=== PATIENT | female | born 1970 | race African-American/Black ===

== ENCOUNTER 2016-08-05 11:47 | Observation (INO) | payer OTHER ==
[2016-08-05] MEDS ORDERED: NITROGLYCERIN SL TABS 0.4 MG TAB SUBLINGUAL STA ×3 (12:14)
[2016-08-05] MEDS ORDERED: ASPIRIN 81 MG CHEW PO STA (12:14)
[2016-08-05] MEDS ORDERED: SODIUM CHLORIDE 0.9% 1,000 ML IV STA (12:14)
--- NOTE | 2016-08-05 12:25 | ED ---
General Adult HPI - General Chief complaint: Chest Pain Stated complaint: Chest pain Time Seen by Provider: 08/05/16 12:10 Source: patient, RN notes reviewed Mode of arrival: wheelchair Limitations: no limitations - History of Present Illness Initial comments: Patient is a pleasant 45-year-old female presenting to the emergency Department with chest discomfort. Patient states this somewhat chronic however worse the past few days. Patient does have a history of alcohol use and has been sober for a while however did drink some today. Patient also has some discomfort in her abdomen. Patient denies history of pancreatitis. Patient does feel somewhat short of breath. Patient has been vomiting. No diaphoresis. - Related Data Home Medications Medication Instructions Recorded Confirmed Divalproex ER [Depakote ER] 1,000 mg PO HS 08/05/16 08/05/16 Escitalopram [Lexapro] 20 mg PO DAILY 08/05/16 08/05/16 Gabapentin [Neurontin] 300 mg PO TID 08/05/16 08/05/16 QUEtiapine FUMARATE [SEROquel] 300 mg PO HS 08/05/16 08/05/16 cloNIDine HCL [Catapres] 0.1 mg PO TID 08/05/16 08/05/16 hydrOXYzine PAMOATE 50 mg PO TID 08/05/16 08/05/16 traZODone HCL [Desyrel] 100 mg PO HS 08/05/16 08/05/16 Allergies Allergy/AdvReac Type Severity Reaction Status Date / Time codeine Allergy Unknown Verified 08/06/15 07:15 Penicillins Allergy Unknown Verified 08/06/15 07:15 Review of Systems ROS Statement: Those systems with pertinent positive or pertinent negative responses have been documented in the HPI. ROS Other: All systems not noted in ROS Statement are negative. Constitutional: Denies: fever Eyes: Denies: eye pain ENT: Denies: ear pain Respiratory: Reports: dyspnea. Denies: cough Cardiovascular: Reports: chest pain Endocrine: Denies: fatigue Gastrointestinal: Reports: abdominal pain, nausea, vomiting Genitourinary: Denies: urgency Musculoskeletal: Denies: back pain Skin: Denies: rash Neurological: Denies: weakness Past Medical History Past Medical History: Asthma, Cancer, Hypertension, Seizure Disorder Additional Past Medical History / Comment(s): depression, anxiety; irregular heartbeat; hx. UTERINE cancer STATED" STILL HAS OVARIES",BRONCHITIS, ANEMIA-HAD BLOOD TRANSFUSION. PT STATED HAS'NT BEEN ON ANY OF HER MEDICATIONS FOR A YEAR. STATED LAST SEIZURE A YEAR AGO. 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 pt admits to drinking pint or less of vodka per day now.denies any drug use. started smoking 2 years ago,smokes 1/2 ppd. Past Drug Use History: None Reported - Past Family History Father Family Medical History: Cancer, Myocardial Infarction ([place]) Mother Family Medical History: Diabetes Mellitus, Hypertension General Exam Limitations: no limitations General appearance: alert, in no apparent distress Head exam: Present: atraumatic Eye exam: Present: normal appearance, PERRL ENT exam: Present: normal oropharynx Neck exam: Present: normal inspection Respiratory exam: Present: normal lung sounds bilaterally, chest wall tenderness (Mild tenderness to the sternal region) Cardiovascular Exam: Present: regular rate, normal rhythm Expanded Peripheral pulses: 2+: Radial (R), Radial (L), Posterior Tibialis (R), Posterior Tibialis (L) GI/Abdominal exam: Present: soft, tenderness (Mild to moderate epigastric tenderness to palpation). Absent: distended Extremities exam: Present: normal inspection. Absent: pedal edema, calf tenderness Back exam: Present: normal inspection Neurological exam: Present: alert Psychiatric exam: Present: normal affect, normal mood Skin exam: Present: normal color Course Vital Signs 08/05/16 08/05/16 08/05/16 11:53 13:05 13:37 Temperature 97.6 F Pulse Rate 138 H 110 H Respiratory 20 18 16 Rate Blood Pressure 126/74 132/84 O2 Sat by Pulse 97 96 Oximetry 08/05/16 15:30 Temperature 98.7 F Pulse Rate 106 H Respiratory 16 Rate Blood Pressure 131/87 O2 Sat by Pulse 99 Oximetry EKG Findings - EKG Comments: EKG Findings:: Sinus tachycardia 107. MA 154. QRS 88. QT 394. QTC 525. Normal axis. Normal QRS. Nonspecific T waves. Medical Decision Making - Medical Decision Making Patient reexamined and resting comfortably at bedside. Patient still complains of discomfort. Patient updated on results and plan. Case was discussed in detail with Dr. Woody, who will admit for hospital call. VQ scan will be ordered. - Lab Data Result diagrams: 08/05/16 12:50 08/05/16 12:50 Lab Results 08/05/16 08/05/16 08/05/16 Range/Units 12:50 12:50 12:50 WBC 3.3 L (3.8-10.6) k/uL RBC 4.04 (3.80-5.40) m/uL Hgb 10.6 L (11.4-16.0) gm/dL Hct 33.3 L (34.0-46.0) % MCV 82.4 (80.0-100.0) fL MCH 26.3 (25.0-35.0) pg MCHC 31.9 (31.0-37.0) g/dL RDW 18.3 H (11.5-15.5) % Plt Count 214 (150-450) k/uL Neutrophils % (Manual) 55.5 % Lymphocytes % (Manual) 40.5 % Monocytes % (Manual) 4.0 % Neutrophils # (Manual) 1.8 (1.3-7.7) k/uL Lymphocytes # (Manual) 1.3 (1.0-4.8) k/uL Monocytes # (Manual) 0.1 (0-1.0) k/uL Nucleated RBCs 0 (0-0) /100 WBC Manual Slide Review Performed Hypochromasia Slight Anisocytosis Slight PT (9.0-12.0) sec INR (<1.1) APTT (22.0-30.0) sec D-Dimer (<0.60) mg/L FEU Sodium 141 (137-145) mmol/L Potassium 3.3 L (3.5-5.1) mmol/L Chloride 104 (98-107) mmol/L Carbon Dioxide 24 (22-30) mmol/L Anion Gap 13 mmol/L BUN 11 (7-17) mg/dL Creatinine 0.70 (0.52-1.04) mg/dL Est GFR (MDRD) Af Amer >60 (>60 ml/min/1.73 sqM) Est GFR (MDRD) Non-Af >60 (>60 ml/min/1.73 sqM) Glucose 88 (74-99) mg/dL Calcium 8.2 L (8.4-10.2) mg/dL Magnesium 1.8 (1.6-2.3) mg/dL Total Bilirubin 0.5 (0.2-1.3) mg/dL AST 41 H (14-36) U/L ALT 25 (9-52) U/L Alkaline Phosphatase 82 (38-126) U/L Total Creatine Kinase 546 H (30-135) U/L CK-MB (CK-2) 2.1 (0.0-2.4) ng/mL CK-MB (CK-2) Rel Index 0.4 Troponin I <0.012 (0.000-0.034) ng/mL Total Protein 7.6 (6.3-8.2) g/dL Albumin 4.2 (3.5-5.0) g/dL Amylase 53 (30-110) U/L Lipase 48 (23-300) U/L Serum Alcohol 140 mg/dL 08/05/16 Range/Units 12:50 WBC (3.8-10.6) k/uL RBC (3.80-5.40) m/uL Hgb (11.4-16.0) gm/dL Hct (34.0-46.0) % MCV (80.0-100.0) fL MCH (25.0-35.0) pg MCHC (31.0-37.0) g/dL RDW (11.5-15.5) % Plt Count (150-450) k/uL Neutrophils % (Manual) % Lymphocytes % (Manual) % Monocytes % (Manual) % Neutrophils # (Manual) (1.3-7.7) k/uL Lymphocytes # (Manual) (1.0-4.8) k/uL Monocytes # (Manual) (0-1.0) k/uL Nucleated RBCs (0-0) /100 WBC Manual Slide Review Hypochromasia Anisocytosis PT 11.3 (9.0-12.0) sec INR 1.1 (<1.1) APTT 26.5 (22.0-30.0) sec D-Dimer 0.76 H (<0.60) mg/L FEU Sodium (137-145) mmol/L Potassium (3.5-5.1) mmol/L Chloride (98-107) mmol/L Carbon Dioxide (22-30) mmol/L Anion Gap mmol/L BUN (7-17) mg/dL Creatinine (0.52-1.04) mg/dL Est GFR (MDRD) Af Amer (>60 ml/min/1.73 sqM) Est GFR (MDRD) Non-Af (>60 ml/min/1.73 sqM) Glucose (74-99) mg/dL Calcium (8.4-10.2) mg/dL Magnesium (1.6-2.3) mg/dL Total Bilirubin (0.2-1.3) mg/dL AST (14-36) U/L ALT (9-52) U/L Alkaline Phosphatase (38-126) U/L Total Creatine Kinase (30-135) U/L CK-MB (CK-2) (0.0-2.4) ng/mL CK-MB (CK-2) Rel Index Troponin I (0.000-0.034) ng/mL Total Protein (6.3-8.2) g/dL Albumin (3.5-5.0) g/dL Amylase (30-110) U/L Lipase (23-300) U/L Serum Alcohol mg/dL - Radiology Data Radiology results: report reviewed (Computed tomography scan is a nondiagnostic study of the chest is confirmed with discussion with Dr. Brush. Aorta unremarkable. Correlate for pulmonary artery her potential.), image reviewed ( Abdominal x-ray shows no acute abnormality. Two-view chest x-ray shows no acute abnormality.) Critical Care Time Critical Care Time: Yes Total Critical Care Time: 32 Disposition Clinical Impression: Unstable angina pectoris Disposition: ADMITTED IP TO THIS HOSP Referrals: None,Stated [Primary Care Provider] - 1-2 days Time of Disposition: 16:10
[2016-08-05 13:15] LABS: Anisocytosis Slight; CH 26.4; CHCM 32.1; HCT 33.3 % (34.0-46.0); HDW 3.02; HGB 10.6 gm/dL (11.4-16.0); Hypochromasia Slight; MCH 26.3 pg (25.0-35.0); MCHC 31.9 g/dL (31.0-37.0); MCV 82.4 fL (80.0-100.0); Mean Platelet Volume 7.7; RBC 4.04 m/uL (3.80-5.40); RDW 18.3 % (11.5-15.5); WBC 3.3 k/uL (3.8-10.6); WBC (Perox) 3.37
[2016-08-05 13:19] LABS: Add Differential Manual Differential
--- NOTE | 2016-08-05 13:22 | XR ---
EXAMINATION TYPE: XR abdomen 1V DATE OF EXAM ORDERED: 08/05/2016 HISTORY: Pain. COMPARISON: None. FINDINGS: There has been a midline incision. Metallic sutures are present. There is been previous ch olecystectomy. The abdominal gas pattern is normal. There is no evidence of obstruction or free air. No unusual calc ifications are seen. IMPRESSION: 1. NO ACUTE INTRACEREBRAL ABDOMINAL ABNORMALITY. 2. POSTSURGICAL CHANGE.
--- NOTE | 2016-08-05 13:24 | XR ---
EXAMINATION TYPE: XR chest 2V DATE OF EXAM: 08/05/2016 HISTORY: Chest Pain. REFERENCE: Previous study dated 08/06/2015. FINDINGS: The lungs are clear. Pleural spaces are clear. Heart size is normal. IMPRESSION: NO ACUTE INTRATHORACIC ABNORMALITY.
[2016-08-05 13:25] LABS: INR 1.1 (<1.1); Partial Thromboplastin Time 26.5 sec (22.0-30.0); Prothrombin Time 11.3 sec (9.0-12.0)
[2016-08-05 13:27] LABS: ALT 25 U/L (9-52); AST 41 U/L (14-36); Alkaline Phosphatase 82 U/L (38-126); Amylase 53 U/L (30-110); Anion Gap 13 mmol/L; Blood Urea Nitrogen 11 mg/dL (7-17); Calcium 8.2 mg/dL (8.4-10.2); Carbon Dioxide 24 mmol/L (22-30); Chloride 104 mmol/L (98-107); Glucose 88 mg/dL (74-99); Magnesium 1.8 mg/dL (1.6-2.3); Non-African American GFR(MDRD) >60 (>60 ml/min/1.73 sqM); Potassium 3.3 mmol/L (3.5-5.1); Sodium 141 mmol/L (137-145); Total Bilirubin 0.5 mg/dL (0.2-1.3); Total Protein 7.6 g/dL (6.3-8.2)
[2016-08-05 13:28] LABS: Manual Review Performed; Nucleated Red Blood Cells 0 /100 WBC (0-0); Total Cells Counted 200
[2016-08-05 13:33] LABS: Creatine Kinase 546 U/L (30-135)
[2016-08-05 13:41] LABS: Alcohol 140 mg/dL
[2016-08-05 13:45] LABS: Creatine Kinase MB 2.1 ng/mL (0.0-2.4); Troponin I <0.012 ng/mL (0.000-0.034)
[2016-08-05] MEDS ORDERED: RX INFO: IV CONTRAST WAS GIVEN 1 EACH MISC MISCELLANE PRN (14:40)
--- NOTE | 2016-08-05 15:59 | CT ---
EXAMINATION TYPE: CT angio chest DATE OF EXAM: 08/05/2016 COMPARISON: Chest x-ray same date, chest CTA 08/06/2015 HISTORY: chest pain CT DLP: 298.6 mGycm Automated exposure control for dose reduction was used. CONTRAST: CTA scan of the thorax is performed with IV Contrast, patient injected with 80 mL of Omnipaque 350, p ulmonary embolism protocol. MIP images are created and reviewed. 3D reconstructed images are create d on an independent workstation and reviewed. FINDINGS: LUNGS: The lungs are grossly clear, there is no concerning parenchymal mass or nodule identified. T here is no pleural effusion or pneumothorax seen. The tracheobronchial tree is patent. AORTA: No additional significant abnormality is seen. Pulmonary artery is prominent measuring approximately 3.1 cm, correlate for possible underlying pulmo nary artery hypertension MEDIASTINUM: There is satisfactory enhancement of the pulmonary arteries due to technique. Calcified left hilar nodes are present. OTHER: Patient is post cholecystectomy, gastric sleeve. Liver shows low attenuation likely due to fa tty infiltration. There is no evident ascites. IMPRESSION: CYSTS NONDIAGNOSTIC STUDY TO EXCLUDE PULMONARY EMBOLISM. CORRELATE FOR PULMONARY ARTERY HYPERTENSION.
[2016-08-05] MEDS ORDERED: MORPHINE SULFATE 4 MG/ML SYRINGE IV STA (16:07)
[2016-08-05] MEDS ORDERED: HEPARIN SODIUM,PORCINE 5,000 UNIT/ML 1 ML VIAL IV ONE (16:10)
[2016-08-05] MEDS ORDERED: HEPARIN SODIUM,PORCINE 5,000 UNIT/ML 1 ML VIAL IV PRN (16:10)
[2016-08-05] MEDS ORDERED: NITROGLYCERIN SL TABS 0.4 MG TAB SUBLINGUAL PRN (16:10)
[2016-08-05] MEDS ORDERED: HEPARIN SODIUM,PORCINE/D5W PMX 25,000 UNIT in DEXTROSE/WATER 1 500ML.BAG IV SCH (16:15)
[2016-08-05] MEDS ORDERED: ONDANSETRON 4 MG/2 ML VIAL IVP STA (16:47)
--- NOTE | 2016-08-05 18:09 | NM ---
EXAMINATION TYPE: NM pul vent and perfuse DATE OF EXAM: 08/05/2016 COMPARISON: NONE HISTORY: TECHNIQUE: Utilizing inhalation of 71.2 mCi Tc 99m DTPA aerosol and intravenous injection of 5.3 mCi of Tc 99m MAA, ventilation and perfusion images are acquired post injection in multiple projections. FINDINGS: There are small peripheral subsegmental defects in the lungs which are matching. This is consistent w ith some degree of airway disease. There is no mismatch. There is no segmental type defect. IMPRESSION: There is evidence for mild airway disease. Low probability of pulmonary embolism.
[2016-08-05] MEDS ORDERED: Potassium Replacement Protocol 1 EACH MISC MISCELLANE PRN (19:04)
[2016-08-05 19:32] LABS: Creatine Kinase 555 U/L (30-135)
[2016-08-05 19:45] LABS: Troponin I <0.012 ng/mL (0.000-0.034)
[2016-08-05] MEDS: hydrOXYzine PAMOATE 25 MG CAP PO SCH (20:24)
[2016-08-05] MEDS: NITROGLYCERIN OINT 1 INCH/GM PACKET TOPICAL SCH ×2 (20:24→21:53)
[2016-08-05] MEDS: GABAPENTIN 300 MG CAP PO SCH (20:24)
[2016-08-05] MEDS: DIVALPROEX ER 500 MG TAB.ER.24H PO SCH (20:24)
[2016-08-05] MEDS: traZODone HCL 100 MG TAB PO SCH (20:24)
[2016-08-05] MEDS: POTASSIUM CHLORIDE ER 20 MEQ TAB.ER PO SCH ×2 (20:24→21:19)
[2016-08-05] MEDS: QUEtiapine 100 MG TAB PO SCH (20:25)
[2016-08-05] MEDS: cloNIDine HCL 0.1 MG TAB PO SCH (20:25)
[2016-08-05] MEDS: MORPHINE SULFATE 2 MG/ML SYRINGE IVP PRN (20:25)
[2016-08-05] MEDS ORDERED: ONDANSETRON 4 MG/2 ML VIAL IVP PRN (20:46)
[2016-08-06] MEDS ORDERED: METOCLOPRAMIDE 5 MG/ML 2 ML VIAL IVP SCH
[2016-08-06] MEDS ORDERED: TEMAZEPAM 15 MG CAP PO PRN (00:12)
[2016-08-06 00:37] LABS: Creatine Kinase 426 U/L (30-135)
[2016-08-06 00:50] LABS: Creatine Kinase MB 1.4 ng/mL (0.0-2.4); Troponin I <0.012 ng/mL (0.000-0.034)
[2016-08-06] MEDS ORDERED: METOCLOPRAMIDE 5 MG/ML 2 ML VIAL IVP PRN (04:13)
[2016-08-06] MEDS: MORPHINE SULFATE 2 MG/ML SYRINGE IVP PRN (05:25)
[2016-08-06] MEDS: NITROGLYCERIN OINT 1 INCH/GM PACKET TOPICAL SCH ×4 (05:25→21:50)
[2016-08-06] MEDS: PANTOPRAZOLE 40 MG/10 ML VIAL IVP SCH ×3 (05:25→20:41)
[2016-08-06] MEDS: SODIUM CHLORIDE 0.9% 1,000 ML IV SCH ×2 (05:28→17:52)
[2016-08-06 08:28] LABS: Anisocytosis Slight; Basophils % (A) 0 %; CH 26.3; CHCM 31.2; Eosinophils # (A) 0.1 k/uL (0-0.7); Eosinophils % (A) 2 %; HCT 29.1 % (34.0-46.0); HDW 2.99; HGB 9.5 gm/dL (11.4-16.0); Hypochromasia Moderate; Luc # (Auto) 0.07; Luc % (Auto) 3; Lymphocytes # (A) 1.2 k/uL (1.0-4.8); Lymphocytes % (A) 41 %; MCH 27.3 pg (25.0-35.0); MCHC 32.5 g/dL (31.0-37.0); MCV 84.1 fL (80.0-100.0); Mean Platelet Volume 7.3; Monocytes # (A) 0.1 k/uL (0-1.0); Monocytes % (A) 5 %; Neutrophils # (A) 1.5 k/uL (1.3-7.7); Neutrophils % (A) 50 %; RBC 3.46 m/uL (3.80-5.40); RDW 17.9 % (11.5-15.5); WBC 2.9 k/uL (3.8-10.6); WBC (Perox) 3.02
[2016-08-06 09:10] LABS: Anion Gap 8 mmol/L; Carbon Dioxide 26 mmol/L (22-30); Chloride 106 mmol/L (98-107); Cholesterol 146 mg/dL (<200); Glucose 96 mg/dL (74-99); Potassium 3.4 mmol/L (3.5-5.1); Sodium 140 mmol/L (137-145); Triglycerides 54 mg/dL (<150)
[2016-08-06 09:11] LABS: Blood Urea Nitrogen 10 mg/dL (7-17); Calcium 8.2 mg/dL (8.4-10.2); Creatine Kinase 380 U/L (30-135); HDL Cholesterol 69 mg/dL (40-60); Non-African American GFR(MDRD) >60 (>60 ml/min/1.73 sqM)
[2016-08-06] MEDS: METOPROLOL TARTRATE 25 MG TAB PO SCH ×2 (09:20→20:41)
[2016-08-06] MEDS: hydrOXYzine PAMOATE 25 MG CAP PO SCH ×3 (09:21→20:41)
[2016-08-06] MEDS: GABAPENTIN 300 MG CAP PO SCH ×3 (09:22→20:41)
[2016-08-06] MEDS: cloNIDine HCL 0.1 MG TAB PO SCH ×3 (09:22→20:41)
[2016-08-06] MEDS: ASPIRIN 325 MG TAB PO SCH (09:22)
[2016-08-06] MEDS: ESCITALOPRAM 20 MG TAB PO SCH (10:35)
[2016-08-06] MEDS ORDERED: Potassium Replacement Protocol 1 EACH MISC MISCELLANE PRN (10:40)
--- NOTE | 2016-08-06 10:41 | HP ---
DATE OF ADMISSION: 08/05/2016 DATE OF SERVICE: 08/05/2016 CHIEF COMPLAINT: Chest pain and abdominal pain, vomiting. HISTORY OF PRESENT ILLNESS: This 45-year-old woman with a past medical history of multiple medical problems, including significant alcohol use, asthma, cancer, hypertension, seizure disorder, history of irregular heartbeat, history of depression, bariatric surgery, anxiety, not being followed by any primary physician in the outpatient setting, has a significant hospital alcohol intake. The patient apparently also had vomiting and upper abdominal discomfort for the last 2 days. The patient came to [facility] and was admitted for further evaluation and treatment. The patient has had a previous admission with alcohol intoxication and toxic encephalopathy. There is no history of any fever, rigor, or chills. No history of any headache, loss of consciousness, seizures. PAST MEDICAL HISTORY: 1. History of asthma. 2. History of hypertension. 3. History of seizure disorder. 4. Depression. 5. Anxiety. HOME MEDICATIONS: 1. Seroquel 300 mg at bedtime. 2. Neurontin 300 mg p.o. t.i.d. 3. Lexapro 20 mg p.o. daily. 4. Desyrel 100 mg at bedtime. 5. Hydroxyzine 50 mg p.o. t.i.d. 6. Catapres 0.1 t.i.d. 7. Depakote ER 1000 mg at bedtime. ALLERGIES: CODEINE AND PENICILLIN. Family history, social history, review of systems could not be taken at length because of the change in mental status. Patient is mildly confused. PHYSICAL EXAMINATION: Patient is alert, oriented x2. Pulse 103, blood pressure 160/83, respiration 16, temperature 98.2, pulse ox 94% on room air. HEENT: Conjunctivae normal. NECK: No jugular venous distention. CARDIOVASCULAR SYSTEM: S1, S2 muffled. RESPIRATORY SYSTEM: Breath sounds diminished at the bases. A few scattered rhonchi and crackles. ABDOMEN: Soft. Minimal diffuse discomfort on palpation. No guarding. No rigidity. No mass palpable. LEGS: No edema. No swelling. NERVOUS SYSTEM: Higher functions as mentioned earlier. Moves all 4 limbs. No focal motor or sensory deficit. LYMPHATICS: No lymph node palpable in neck, axillae or groin. SKIN: No ulcer, rash, bleeding. LABS: WBC 3.3, hemoglobin 10.6. D-dimer is 0.76. Potassium is 3.3. Calcium 8.2. Creatine kinase 546. ASSESSMENT: 1. Acute chest pain for evaluation. Rule out coronary artery disease. Possibly gastroesophageal reflux disease. 2. Rule out peptic ulcer disease. 3. Acute alcohol intoxication. 4. Change in mental status, metabolic encephalopathy secondary to alcohol intoxication. 5. Increased creatine kinase with acute rhabdomyolysis. 6. Hypokalemia. 7. Increased D-dimer without any evidence of pulmonary embolus. 8. Anemia, normocytic; anemia of chronic disease. 9. Leukopenia, possibly secondary to alcohol. 10. History of asthma. 11. History of hypertension. 12. History of seizure disorder. 13. History of anxiety, depression not otherwise specified. 14. History of bariatric surgery. 15. History of cholecystectomy. 16. History of nicotine dependence. 17. History of ethanol. 18. FULL CODE. RECOMMENDATIONS AND DISCUSSION: In this 45-year-old woman who presented with multiple complex medical issues, we will monitor the patient closely, continue the current medications, continue symptomatic treatment. Continue with IV fluids. Rule out myocardial infarction. Cardiology consultation. Otherwise, [facility] protocol for alcohol withdrawal. Repeat labs. Guarded prognosis because of multiple complex medical issues. Further recommendations to follow. I also recommend that the patient follow up closely with a primary physician.
--- NOTE | 2016-08-06 12:37 | CONS ---
DATE OF CONSULTATION: This is a 45-year-old -[place] lady admitted to the hospital with what she describes as epigastric discomfort and also mild burning in the retrosternal area. She is known to have history of alcoholism; has been sober for a while, but she did have 4 to 5 mixed drinks and came into the hospital with abdominal pain. She has no documented history of pancreatitis. Her pain in the abdomen seems to persist. However, she feels better today compared to last night. She does not have any chest pain to suggest angina. Her last echocardiogram from about a year ago suggested an ejection fraction of 45% or so with moderate MR suggestive of alcoholic cardiomyopathy type picture. This lady at the time of my evaluation does not seem to have any major issues other than epigastric discomfort. Her nausea also seems to be better. She seems slightly tachycardic and probably is dehydrated. Denies any chest discomfort to suggest angina. Two sets of troponins are normal. EKG revealed sinus tachycardia, nonspecific ST and T-wave changes with voltage criteria for LVH. PAST MEDICAL HISTORY: 1. Bronchial asthma. 2. Hypertension. 3. History of seizure disorder, and apparently 3 to 4 days ago she stopped her seizure medicines and had a seizure, but now Depakote has been resumed. 4. History of anxiety, depression. SOCIAL HISTORY: She drinks alcohol on a regular basis; was sober for a while but resumed drinking quite heavily. She just got out of for alcohol rehab actually and resumed drinking a few days ago. She does smoke about half pack a day; does not use any recreational drugs. Patient also has a history of seizure disorder. Medications at home include: 1. Depakote 1000 mg bedtime. 2. Lexapro. 3. Gabapentin. 4. Seroquel. 5. Clonidine. 6. Hydroxyzine. 7. Desyrel. ALLERGIES: CODEINE and PENICILLIN. REVIEW OF SYSTEMS: Remarkable for epigastric discomfort, sometimes sharp pain in the chest, some nausea. No hematemesis, melena, genitourinary symptoms, fevers with chills or cough with expectoration. EKG revealed sinus rhythm, sinus tachycardia, nonspecific ST-T changes. LABORATORY DATA: Her 3 sets of troponins are normal. CK was elevated. Liver functions are fine. Serum alcohol level was 140 when she came in; she was intoxicated. D-dimer was 0.76. CT angiography of the chest was non-diagnostic. She went on to have a pulmonary perfusion study yesterday, and this study showed that there was low probability for pulmonary embolism. IMPRESSION: 1. Acute gastritis. 2. Acute alcoholism. 3. Probable alcoholic cardiomyopathy. 4. History of seizure with noncompliance with medications. 5. Previous hospitalization with known ejection fraction in the range of 45%. RECOMMENDATIONS: I am recommending that we discontinue IV heparin. I will obtain an echocardiogram. Will continue the Protonix, add a small dose of beta leoncio in the form of Lopressor 25 mg b.i.d., increase activity, and she can be discharged today and advised to follow up with a primary care physician. Patient has been counseled regarding the need to refrain from alcohol. Thank you very much for the consult.
[2016-08-06] MEDS: POTASSIUM CHLORIDE ER 20 MEQ TAB.ER PO SCH ×3 (13:14→17:59)
[2016-08-06 13:17] VITALS: BMI 32.0
--- NOTE | 2016-08-06 19:55 | PN ---
DATE OF SERVICE: 08/06/2016 This 45-year-old woman who was admitted with abdominal and chest pain also had significant alcohol withdrawal symptoms. The patient is being closely monitored. No fever. No cough. On exam, alert and oriented x3. Pulse is 79, blood pressure 110/75, respirations 16, temperature 98.4, pulse ox 97% on room air. HEENT: Conjunctivae normal. NECK: No jugular venous distension. CARDIOVASCULAR: S1 and S2 muffled. RESPIRATORY: Breath sounds diminished in the bases. No rhonchi. No crackles. ABDOMEN: Soft. Mild diffuse discomfort. No guarding. No rigidity. No mass palpable. LEGS: No edema. No swelling. NERVOUS SYSTEM: Nonfocal. LABS: WBC is 2.8, hemoglobin is 10 0.5. Otherwise, sodium 140, potassium 3.4, creatine kinase 380. ASSESSMENT: 1. Acute chest pain, possibly musculoskeletal, possibly acute gastroesophageal reflux disease. 2. Rule out peptic ulcer disease. 3. Acute alcohol intoxication. 4. Change in mental status, acute metabolic encephalopathy secondary to alcohol intoxication. 5. Increased creatine kinase with acute rhabdomyolysis, present on admission. 6. Hypokalemia. 7. Increased D-dimer without any evidence of pulmonary embolism. 8. Anemia, normocytic anemia of chronic disease. 9. Leukopenia, possibly secondary to alcohol. 10. History of asthma. 11. History of hypertension. 12. History of seizure disorder. 13. History of anxiety and depression, not otherwise specified. 14. History of bariatric surgery. 15. History of cholecystectomy. 16. History of nicotine dependence. 17. History of ethanol. 18. FULL CODE. RECOMMENDATIONS AND DISCUSSION: In this 45-year-old woman who presented with multiple complex medical issues, we will monitor the patient closely, continue the current medication, symptomatic treatment. Continue with Ativan and CIWA protocol. Guarded prognosis. Potassium supplementation. Further recommendations to follow. See orders for further details.
[2016-08-06] MEDS: DIVALPROEX ER 500 MG TAB.ER.24H PO SCH (20:41)
[2016-08-06] MEDS: QUEtiapine 100 MG TAB PO SCH (20:41)
[2016-08-06] MEDS: traZODone HCL 100 MG TAB PO SCH (21:18)
[2016-08-07] MEDS: SODIUM CHLORIDE 0.9% 1,000 ML IV SCH ×2 (06:03→07:36)
[2016-08-07] MEDS ORDERED: Potassium Replacement Protocol 1 EACH MISC MISCELLANE PRN (07:33)
[2016-08-07 07:55] VITALS: RESP 16
[2016-08-07 08:20] LABS: Anion Gap 6 mmol/L; Blood Urea Nitrogen 5 mg/dL (7-17); Calcium 8.4 mg/dL (8.4-10.2); Carbon Dioxide 25 mmol/L (22-30); Chloride 108 mmol/L (98-107); Creatine Kinase 258 U/L (30-135); Glucose 86 mg/dL (74-99); Non-African American GFR(MDRD) >60 (>60 ml/min/1.73 sqM); Potassium 3.8 mmol/L (3.5-5.1); Sodium 139 mmol/L (137-145)
[2016-08-07 08:33] LABS: Add Differential Manual Differential
[2016-08-07 08:34] LABS: Nucleated Red Blood Cells 0 /100 WBC (0-0); Polychromasia Present; Total Cells Counted 100
[2016-08-07] MEDS ORDERED: POTASSIUM CHLORIDE ER 20 MEQ TAB.ER PO SCH (09:00)
[2016-08-07 09:15] LABS: Anisocytosis Slight; Basophils % (A) 0 %; CH 26.4; CHCM 31.2; Eosinophils # (A) 0.1 k/uL (0-0.7); Eosinophils % (A) 4 %; HCT 32.5 % (34.0-46.0); HDW 3.04; HGB 10.3 gm/dL (11.4-16.0); Hypochromasia Moderate; Luc # (Auto) 0.12; Luc % (Auto) 4; Lymphocytes # (A) 1.7 k/uL (1.0-4.8); Lymphocytes % (A) 54 %; MCH 26.8 pg (25.0-35.0); MCHC 31.8 g/dL (31.0-37.0); MCV 84.4 fL (80.0-100.0); Mean Platelet Volume 7.5; Monocytes # (A) 0.1 k/uL (0-1.0); Monocytes % (A) 3 %; Neutrophils # (A) 1.2 k/uL (1.3-7.7); Neutrophils % (A) 36 %; RBC 3.85 m/uL (3.80-5.40); WBC 3.2 k/uL (3.8-10.6); WBC (Perox) 3.29
[2016-08-07] MEDS: ESCITALOPRAM 20 MG TAB PO SCH (09:34)
[2016-08-07] MEDS: ASPIRIN 325 MG TAB PO SCH (09:34)
[2016-08-07] MEDS: GABAPENTIN 300 MG CAP PO SCH (09:34)
[2016-08-07] MEDS: hydrOXYzine PAMOATE 25 MG CAP PO SCH (09:35)
[2016-08-07] MEDS: METOPROLOL TARTRATE 25 MG TAB PO SCH (09:35)
[2016-08-07] MEDS: cloNIDine HCL 0.1 MG TAB PO SCH (09:35)
[2016-08-07] MEDS: PANTOPRAZOLE 40 MG/10 ML VIAL IVP SCH (09:35)
[2016-08-07 11:58] VITALS: BP 127/76; PULSE 79; TEMP 97.9
[2016-08-07] MEDS: NITROGLYCERIN OINT 1 INCH/GM PACKET TOPICAL SCH (15:57)
--- NOTE | 2016-08-08 21:50 | DS ---
DATE OF ADMISSION: 08/05/2016 DATE OF DISCHARGE: 08/07/2016 FINAL DIAGNOSES: 1. Acute chest pain, possibly musculoskeletal, possibly acute gastroesophageal reflux disease. 2. Acute alcohol intoxication. 3. Change in mental status, metabolic encephalopathy, secondary to alcohol intoxication. 4. Asthma, chronic obstructive pulmonary disease, chronic, intermittent. 5. Increased creatine kinase with acute rhabdomyolysis, present on admission. 6. Hypokalemia. 7. Increased D-dimer without any evidence of acute pulmonary embolism. 8. Anemia, normocytic; anemia of chronic disease. 9. Leukopenia secondary to ethanol. 10. History of asthma. 11. History of hypertension. 12. History of seizure disorder. 13. History of anxiety, depression not otherwise specified. 14. History of bariatric surgery. 15. History of cholecystectomy. 16. History of nicotine dependence. 17. History of ethanol. 18. FULL CODE. DISCHARGE DISPOSITION: The patient will be discharged in stable condition with guarded prognosis. HISTORY OF PRESENT ILLNESS: This 45-year-old woman with a past medical history of multiple medical problems was admitted with chest pain, alcohol , shortness of breath and multiple other issues. She was treated symptomatically, improved significantly. Cardiology recommended outpatient followup. On exam, vitals are stable. CARDIOVASCULAR SYSTEM: S1, S2 muffled. RESPIRATORY: A few scattered rhonchi. ABDOMEN: Soft. NERVOUS SYSTEM: No focal deficit. DISCHARGE ADVICE AND MEDICATIONS: 1. Diet is regurgitation. 2. Activity limited until followup. 3. Follow up with Dr. Lorrie Moore in 2 to 3 days. 4. Ventolin 2 puffs q.i.d. 5. Catapres 0.1 p.o. t.i.d. 6. Depakote ER 1000 mg at bedtime. 7. Lexapro 20 mg p.o. daily. 8. Neurontin 300 mg p.o. t.i.d. 9. Hydroxyzine 50 mg p.o. t.i.d. 10. Ativan 0.5 mg t.i.d. 11. Lopressor 25 mg p.o. b.i.d. 12. Seroquel 300 mg at bedtime. 13. Desyrel 100 mg p.o. at bedtime. MTDD
--- NOTE | 2016-08-11 10:22 | ECHOF ---
Referral Reason:chest pain MEASUREMENTS -------- HEIGHT: 165.1 cm WEIGHT: 87.1 kg BP: 109/54 IVSd: 1.4 cm (0.6 - 1.1) LVIDd: 4.1 cm (3.9 - 5.3) LVPWd: 1.5 cm (0.6 - 1.1) IVSs: 1.7 cm LVIDs: 3.0 cm LVPWs: 2.0 cm LAESV Index (A-L): 25.05 ml/m Ao Diam: 3.0 cm (2.0 - 3.7) AV Cusp: 1.9 cm (1.5 - 2.6) LA Diam: 4.3 cm (2.7 - 3.8) MV EXCURSION: 18.395 mm (> 18.000) MV EF SLOPE: 107 mm/s (70 - 150) EPSS: 0.7 cm MV E Bertram: 1.27 m/s MV DecT: 151 ms MV A Bertram: 0.46 m/s MV E/A Ratio: 2.76 RAP: 5.00 mmHg RVSP: 26.33 mmHg FINDINGS -------- Sinus rhythm. This was a technically good study. There is moderate concentric left ventricular hypertrophy. Overall left ventricular systolic function is normal with, an EF between 55 - 60 %. The right ventricle is normal in size and function. Normal LA size by volume 22+/-6 ml/m2. The right atrium is normal in size. Aortic valve is trileaflet and is mildly thickened. The mitral valve leaflets are mildly thickened. [id number] mitral regurgitation is present. Mild tricuspid regurgitation present. The right ventricular systolic pressure, as measured by Doppler, is 26.33mmHg. Pulmonic valve appears structurally normal. The aortic root size is normal. The pericardium is normal. CONCLUSIONS -------- 1. Sinus rhythm. 2. [id number] mitral regurgitation is present. 3. Mild tricuspid regurgitation present. 4. The right ventricular systolic pressure, as measured by Doppler, is 26.33mmHg. 5. Pulmonic valve appears structurally normal. 6. The aortic root size is normal. 7. The pericardium is normal. 8. This was a technically good study. 9. There is moderate concentric left ventricular hypertrophy. 10. Overall left ventricular systolic function is normal with, an EF between 55 - 60 %. 11. The right ventricle is normal in size and function. 12. Normal LA size by volume 22+/-6 ml/m2. 13. The right atrium is normal in size. 14. Aortic valve is trileaflet and is mildly thickened. 15. The mitral valve leaflets are mildly thickened. BUSPERSON: Cristine Setwart RDCS
== END 2016-08-07 15:33 | disposition home or self-care (01) ==
LOC: EC 11:47 → 3OBS 16:10
PROVIDERS: ADMIT Internal Medicine; ATTEND Internal Medicine
DX: R07.9 Chest pain, unspecified (principal); G93.41 Metabolic encephalopathy; F10.239 Alcohol dependence with withdrawal, unspecified; J45.20 Mild intermittent asthma, uncomplicated; J44.9 Chronic obstructive pulmonary disease, unspecified; E87.6 Hypokalemia; M62.82 Rhabdomyolysis; R79.89 Other specified abnormal findings of blood chemistry; D63.8 Anemia in other chronic diseases classified elsewhere; D72.819 Decreased white blood cell count, unspecified; I10 Essential (primary) hypertension; G40.909 Epilepsy, unspecified, not intractable, without status epilepticus; Z79.899 Other long term (current) drug therapy; Z88.0 Allergy status to penicillin; Z88.5 Allergy status to narcotic agent; F32.9 Major depressive disorder, single episode, unspecified; F41.9 Anxiety disorder, unspecified; I49.9 Cardiac arrhythmia, unspecified; Z85.42 Personal history of malignant neoplasm of other parts of uterus; F17.200 Nicotine dependence, unspecified, uncomplicated; Z98.84 Bariatric surgery status; K29.00 Acute gastritis without bleeding; Z90.49 Acquired absence of other specified parts of digestive tract; Z91.14 Patient's other noncompliance with medication regimen
CPT/HCPCS: 99291; 96375 ×4; 96376 ×5; 96361; 96365; 96366 ×2; 36415; 93005; 93306; 85379; 80061; 80053; 80048 ×2; 82150; 82550 ×3; 82553; 83690; 83735; 84484; 85025 ×3; 85610; 85730 ×2; 80320; 71020; 74000; 71275; 78582; G0378 ×3; A9540; A9567; J2270 ×2; J1644 ×3; J2765; Q9967; J2405; C9113 ×2

== ENCOUNTER → 2017-06-20 | Outpatient (CLI) | payer OTHER ==
[2017-06-20 14:40] LABS: Anisocytosis Slight; HCT 30.4 % (34.0-46.0); HGB 8.9 gm/dL (11.4-16.0); Hypochromasia Marked; MCH 24.7 pg (25.0-35.0); MCHC 29.3 g/dL (31.0-37.0); MCV 84.2 fL (80.0-100.0); Mean Platelet Volume 8.3; Platelet Count 206 k/uL (150-450); RBC 3.61 m/uL (3.80-5.40); WBC 3.5 k/uL (3.8-10.6)
[2017-06-20 16:28] LABS: Eosinophils # (M) 0.07 k/uL (0-0.7); Lymphocytes # (M) 1.82 k/uL (1.0-4.8); Monocytes # (M) 0.14 k/uL (0-1.0); Neutrophils # (M) 1.47 k/uL (1.3-7.7); Neutrophils % (M) 42 %; Nucleated Red Blood Cells 0 /100 WBC (0-0); Total Cells Counted 100
[2017-06-21 14:30] LABS: Alt. alternata IgE Class CLASS 0; Alternaria alternata IgE <0.35 kU/L (<0.35); Asperg. fumagatus IgE <0.35 kU/L (<0.35); Asperg. fumagatus IgE Class CLASS 0; Bermuda Grass IgE <0.35 kU/L (<0.35); Birch(Com.Silvr) IgE <0.35 kU/L (<0.35); Birch(Com.Silvr) IgE Class CLASS 0; Cat Epith & Dander IgE <0.35 kU/L (<0.35); Cat Epith & Dander IgE Class CLASS 0; Clad herbarum IgE <0.35 kU/L (<0.35); Cockroach IgE <0.35 kU/L (<0.35); Cottonwood IgE <0.35 kU/L (<0.35); Dermato. Pteronyssinus IgE <0.35 kU/L (<0.35); Dermato. farinae IgE <0.35 kU/L (<0.35); Dermato. farinae IgE Class CLASS 0; Dog Dander IgE <0.35 kU/L (<0.35); Elm IgE <0.35 kU/L (<0.35); Maple (Box Elder) IgE <0.35 kU/L (<0.35); Maple (Box Elder) IgE Class CLASS 0; Mountain Cedar IgE <0.35 kU/L (<0.35); Mountain Cedar IgE Class CLASS 0; Mouse Urine IgE Class CLASS 0; Nettle IgE <0.35 kU/L (<0.35); Nettle IgE Class CLASS 0; Oak IgE <0.35 kU/L (<0.35); Penicillium notatum IgE Class CLASS 0; Rough Marshelder IgE <0.35 kU/L (<0.35); Rough Marshelder IgE Class CLASS 0; Timothy Grass IgE <0.35 kU/L (<0.35); White Ash IgE Class CLASS 0
[2017-06-23 11:57] LABS: Alpha 1 Anti-Trypsin 157 mg/dL (90 - 200)
[2017-06-27 23:15] LABS: Alternaria Alternata IgG 4.2 mcg/mL (< 13.6); Aspergillus fumigatus IgG Not detected (Not detected); Aureobasidium pullulans IgG 6.1 mcg/mL (< 13.6); Cladosporium herbarium IgG 18.2 mcg/mL (< 14.7); Phoma ssp. IgG 5.5 mcg/mL (< 6.6); Saccaharomospora viridis Not detected (Not detected); Saccaharopoly. rectivirgula Not detected (Not detected)
== END | disposition home or self-care (01) ==
LOC: CPPFTMAIN 13:16
PROVIDERS: ATTEND Internal Medicine
DX: J45.909 Unspecified asthma, uncomplicated (principal); R05 Cough
CPT/HCPCS: 36415; 82103; 82104; 82785; 85025; 86001; 86003; 86606; 86609; 94060; 94726

== ENCOUNTER → 2018-06-19 | Outpatient (CLI) | payer OTHER | END | disposition home or self-care (01) | LOC: CPPFTMAIN 14:35 | PROVIDERS: ATTEND Thoracic Surgery (Cardiothoracic Vascular Surgery) | DX: R94.2 Abnormal results of pulmonary function studies (principal); I34.0 Nonrheumatic mitral (valve) insufficiency | CPT/HCPCS: 94060; 94726; 94729 ==

== ENCOUNTER → 2018-06-19 | Outpatient (CLI) | payer OTHER ==
[2018-06-19 15:13] LABS: Anisocytosis Slight; HCT 32.5 % (34.0-46.0); HGB 9.2 gm/dL (11.4-16.0); Hypochromasia Marked; MCH 21.8 pg (25.0-35.0); MCHC 28.2 g/dL (31.0-37.0); MCV 77.4 fL (80.0-100.0); Microcytosis Slight; Platelet Count 362 k/uL (150-450); WBC 3.6 k/uL (3.8-10.6)
[2018-06-19 15:18] LABS: Prothrombin Time 10.7 sec (9.0-12.0)
[2018-06-19 16:00] LABS: Appearance,Urine Cloudy (Clear); Color,Urine Yellow; PH, Urine 7.5 (5.0-8.0); Protein,Urine Negative (Negative); Specific Gravity,Urine 1.013 (1.001-1.035)
[2018-06-19 16:01] LABS: Bacteria,Urine Rare /hpf; Bilirubin,Urine Negative (Negative); Blood,Urine Negative (Negative); Glucose,Urine (UA) Negative (Negative); Ketones,Urine Negative (Negative); Leukocyte Esterase,Urine Negative (Negative); Mucus,Urine Rare /hpf; Nitrite,Urine Negative (Negative); RBC,Urine <1 /hpf (0-5); Squamous Epithelial Cell,Urine 7 /hpf (0-4); Urobilinogen,Urine <2.0 mg/dL (<2.0); WBC,Urine 1 /hpf (0-5)
[2018-06-20 00:27] LABS: Albumin 4.7 g/dL (3.80-4.90); Albumin/Globulin Ratio 1.88 (1.60-3.17); Anion Gap 11.5 mmol/L (4.00-12.00); Calcium 9.8 mg/dL (8.7-10.3); Carbon Dioxide 26.5 mmol/L (21.6-31.8); Globulin 2.5 g/dL (1.6-3.3); Potassium 4.1 mmol/L (3.5-5.5); Total Bilirubin 0.2 mg/dL (0.2-1.2); Total Protein 7.2 g/dL (6.2-8.2)
== END ==
LOC: LABWHC1 14:13
PROVIDERS: ATTEND Thoracic Surgery (Cardiothoracic Vascular Surgery)
DX: Z01.812 Encounter for preprocedural laboratory examination (principal)
CPT/HCPCS: 36415; 80053; 81001; 81025; 85027; 85610

== ENCOUNTER 2018-08-15 02:33 | Observation (INO) | payer OTHER ==
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
[2018-08-15 04:19] LABS: Anisocytosis Slight; Basophils % (A) 0 %; Eosinophils % (A) 1 %; HGB 8.3 gm/dL (11.4-16.0); Hypochromasia Marked; Lymphocytes # (A) 1.9 k/uL (1.0-4.8); Lymphocytes % (A) 37 %; MCH 21.6 pg (25.0-35.0); MCHC 29.7 g/dL (31.0-37.0); MCV 72.8 fL (80.0-100.0); Mean Platelet Volume 7.7; Microcytosis Moderate; Monocytes # (A) 0.2 k/uL (0-1.0); Monocytes % (A) 3 %; Neutrophils # (A) 2.8 k/uL (1.3-7.7); Neutrophils % (A) 56 %; Platelet Count 218 k/uL (150-450); RBC 3.85 m/uL (3.80-5.40); RDW 19.9 % (11.5-15.5); WBC 5.1 k/uL (3.8-10.6)
[2018-08-15 04:20] LABS: Appearance,Urine Clear (Clear); Bilirubin,Urine Negative (Negative); Blood,Urine Negative (Negative); Color,Urine Colorless; Glucose,Urine (UA) Negative (Negative); Ketones,Urine Negative (Negative); Leukocyte Esterase,Urine Negative (Negative); Nitrite,Urine Negative (Negative); PH, Urine 5.5 (5.0-8.0); Protein,Urine Negative (Negative); Specific Gravity,Urine 1.002 (1.001-1.035); Urobilinogen,Urine <2.0 mg/dL (<2.0)
[2018-08-15 04:29] LABS: ALT 14 U/L (9-52); AST 30 U/L (14-36); African American GFR (CKD) >90 (>60 ml/min/1.73 sqM); Alkaline Phosphatase 61 U/L (38-126); Amylase 63 U/L (30-110); Anion Gap 13 mmol/L; Blood Urea Nitrogen 9 mg/dL (7-17); Calcium 8.9 mg/dL (8.4-10.2); Carbon Dioxide 19 mmol/L (22-30); Chloride 109 mmol/L (98-107); Glucose 95 mg/dL (74-99); Lipase 171 U/L (23-300); Potassium 3.7 mmol/L (3.5-5.1); Sodium 141 mmol/L (137-145); Total Bilirubin 0.2 mg/dL (0.2-1.3); Total Protein 7.1 g/dL (6.3-8.2)
[2018-08-15 04:30] LABS: Alcohol 205 mg/dL
--- NOTE | 2018-08-15 04:31 | XR ---
EXAM: XR Chest, 2 Views CLINICAL HISTORY: ITS.REASON XR Reason: Pain TECHNIQUE: Frontal and lateral views of the chest. COMPARISON: No relevant prior studies available. FINDINGS: Lungs: Unremarkable. No consolidation. Pleural space: Unremarkable. No pneumothorax. Heart: No suspicious enlargement. Mediastinum: Unremarkable. Bones/joints: No acute fracture. IMPRESSION: No acute findings.
[2018-08-15 04:42] LABS: Prothrombin Time 10.6 sec (9.0-12.0)
[2018-08-15 04:44] LABS: D-Dimer 0.93 mg/L FEU (<0.60)
[2018-08-15 04:45] LABS: Partial Thromboplastin Time 20.8 sec (22.0-30.0)
[2018-08-15] MEDS ORDERED: NITROGLYCERIN SL TABS 0.4 MG TAB SUBLINGUAL PRN (07:02)
[2018-08-15] MEDS ORDERED: THIAMINE 100 MG/ML 2 ML VIAL IM STA (07:06)
[2018-08-15] MEDS ORDERED: LORazepam 2 MG/ML INJ IV PRN ×3 (07:06)
--- NOTE | 2018-08-15 08:42 | NM ---
EXAMINATION TYPE: NM pul vent and perfuse DATE OF EXAM: 08/15/2018 COMPARISON: Chest x-ray 08/15/2018 HISTORY: Pain TECHNIQUE: Utilizing inhalation of 41.8 mCi Tc 99m DTPA aerosol and intravenous injection of 5.21 mC i of Tc 99m MAA, ventilation and perfusion images are acquired post injection in multiple projections . FINDINGS: There is patchy uptake noted on ventilation images which limits assessment. A matched defect involvin g the right midlung is suspected. IMPRESSION: Limited exam due to reduced uptake involving the ventilation images. Findings are suspicious for a ma tched defect involving the right midlung. Findings suggestive of a intermediate probability for pulmo nary embolism correlate with CTA.
[2018-08-15] MEDS ORDERED: cloNIDine HCL 0.1 MG TAB PO SCH (09:00)
[2018-08-15] MEDS: ALBUTEROL NEBULIZED 2.5 MG/3 ML INHALATION SCH ×3 (09:11→19:35)
[2018-08-15] MEDS: METOPROLOL TARTRATE 25 MG TAB PO SCH ×2 (09:25→22:36)
[2018-08-15] MEDS: ESCITALOPRAM 20 MG TAB PO SCH (09:25)
[2018-08-15] MEDS: GABAPENTIN 300 MG CAP PO SCH ×3 (09:25→22:36)
[2018-08-15] MEDS: hydrOXYzine PAMOATE 25 MG CAP PO SCH ×3 (09:28→22:35)
[2018-08-15] MEDS ORDERED: FAMOTIDINE 20 MG/2 ML VIAL IV ONE (10:39)
[2018-08-15] MEDS ORDERED: methylPREDNISolone SOD SUCCI 125 MG/2 ML VIAL IV ONE (10:39)
[2018-08-15] MEDS ORDERED: diphenhydrAMINE 50 MG/ML 1 ML VIAL IVP ONE (10:39)
--- NOTE | 2018-08-15 11:32 | CT ---
EXAMINATION TYPE: CT chest angio for PE DATE OF EXAM: 08/15/2018 COMPARISON: 08/05/2016 HISTORY: 47-year-old female Chest Pain TECHNIQUE: Contiguous axial scanning of the chest performed with IV Contrast, patient injected with 8 6 mL of Isovue 370. Coronal/sagittal MIP reconstructions performed. CT DLP: 320.4 mGycm Automated exposure control for dose reduction was used. FINDINGS: The heart is borderline enlarged. Small pericardial effusion along the base of the heart. Aorta normal caliber with conventional arch vessel branching anatomy. Satisfactory opacification of the pulmonary artery system. There is mild respiratory motion limiting assessment. No definite pulmonary embolus. Calcified right tracheobronchial angle and left hilar lymph nodes compatible with prior granulomatous disease. Moderate generalized bronchial wall thickening. No consolidation or pleural effusion. Small hiatal hernia. Postsurgical changes along the stomach and cholecystectomy clips. Bones: No osseous destructive process. IMPRESSION: 1. BORDERLINE CARDIOMEGALY. 2. MILD RESPIRATORY MOTION ARTIFACT LIMITING ASSESSMENT. NO DEFINITE PULMONARY EMBOLUS. 3. PRIOR GRANULOMATOUS DISEASE. 4. MODERATE BRONCHIAL WALL THICKENING SUGGESTING BRONCHITIS OR ASTHMA. CLINICALLY CORRELATE.
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
[2018-08-15] MEDS ORDERED: ALBUTEROL NEBULIZED 2.5 MG/3 ML INHALATION PRN (16:19)
[2018-08-15] MEDS: THIAMINE 100 MG TAB PO SCH (17:43)
[2018-08-15 20:42] LABS: Iron Saturation 2.7 (12.00-45.00)
[2018-08-15] MEDS: QUEtiapine 100 MG TAB PO SCH (22:35)
[2018-08-15] MEDS: FAMOTIDINE 20 MG/2 ML VIAL IV SCH (22:36)
[2018-08-15] MEDS: DIVALPROEX ER 500 MG TAB.ER.24H PO SCH (22:36)
[2018-08-15] MEDS: traZODone HCL 100 MG TAB PO SCH (22:36)
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
[2018-08-15] MEDS ORDERED: predniSONE 20 MG TAB PO SCH (23:45)
[2018-08-15] MEDS ORDERED: AZITHROMYCIN 500 MG TAB PO SCH (23:45)
[2018-08-16 05:51] LABS: Cholesterol 193 mg/dL (<200); HDL Cholesterol 65 mg/dL (40-60); LDL Cholesterol,Calculated 115 mg/dL (0-99); Triglycerides 64 mg/dL (<150)
[2018-08-16] MEDS: HEPARIN SODIUM,PORCINE 5,000 UNIT/ML 1 ML VIAL SQ SCH ×4 (06:08→23:47)
[2018-08-16] MEDS: THIAMINE 100 MG TAB PO SCH ×2 (06:39→17:57)
--- NOTE | 2018-08-16 08:26 | ECHOF ---
Referral Reason:chest pain MEASUREMENTS -------- HEIGHT: 165.1 cm WEIGHT: 86.2 kg BP: 130/82 IVSd: 1.3 cm (0.6 - 1.1) LVIDd: 5.0 cm (3.9 - 5.3) LVPWd: 1.3 cm (0.6 - 1.1) IVSs: 1.5 cm LVIDs: 4.0 cm LVPWs: 1.7 cm LA Diam: 4.7 cm (2.7 - 3.8) LAESV Index (A-L): 2097 ml/m Ao Diam: 3.1 cm (2.0 - 3.7) AV Cusp: 3.4 cm (1.5 - 2.6) LA Diam: 4.8 cm (2.7 - 3.8) MV EXCURSION: 18.547 mm (> 18.000) MV EF SLOPE: 109 mm/s (70 - 150) RAP: 15.00 mmHg RVSP: 41.12 mmHg FINDINGS -------- Sinus rhythm. This was a technically adequate study. Echo performed by Rafael Polk RICHIE, RVT The left ventricular size is normal. There is moderate global hypokinesis of LV . Overall left ve ntricular systolic function is mild-moderately impaired with, an EF between 40 - 45 %. The right ventricle is normal in size. The left atrium is moderately dilated. The right atrial size is normal. Aneurysmal septum The aortic valve is trileaflet, and appears structurally normal. No aortic stenosis or regurgitation. The mitral valve leaflets are mildly thickened. Severe mitral regurgitation is present. The tricuspid valve appears structurally normal. Mild tricuspid regurgitation present. There is m ild pulmonary hypertension. There is no pulmonic regurgitation present. The aortic root, ascending aorta and aortic arch are normal. There is no pericardial effusion. CONCLUSIONS -------- 1. Sinus rhythm. 2. This was a technically adequate study. 3. The left ventricular size is normal. 4. There is moderate global hypokinesis of LV . 5. Overall left ventricular systolic function is mild-moderately impaired with, an EF between 40 - 45 %. 6. The left atrium is moderately dilated. 7. Aneurysmal septum 8. The aortic valve is trileaflet, and appears structurally normal. No aortic stenosis or regurgitati on. 9. The mitral valve leaflets are mildly thickened. 10. Severe mitral regurgitation is present. 11. The tricuspid valve appears structurally normal. 12. Mild tricuspid regurgitation present. 13. There is mild pulmonary hypertension. 14. There is no pulmonic regurgitation present. 15. The aortic root, ascending aorta and aortic arch are normal. 16. There is no pericardial effusion. [employer]WRIT[employer] FUNCTIONAL TESTER: Robert Roth [facility] RT(N)
[2018-08-16] MEDS ORDERED: AZITHROMYCIN 500 MG TAB PO SCH (09:00)
[2018-08-16] MEDS ORDERED: SODIUM FERRIC GLUCONAT-SUCROSE 125 MG in SODIUM CHLORIDE 0.9% 100 ML IVPB ONE (09:00)
[2018-08-16] MEDS ORDERED: ASPIRIN 325 MG TAB PO SCH (09:00)
[2018-08-16] MEDS ORDERED: predniSONE 20 MG TAB PO SCH (09:00)
[2018-08-16] MEDS: IPRATROPIUM-ALBUTEROL 3 ML NEB INHALATION SCH ×4 (09:21→20:36)
[2018-08-16] MEDS: FAMOTIDINE 20 MG/2 ML VIAL IV SCH (09:29)
[2018-08-16] MEDS: hydrOXYzine PAMOATE 25 MG CAP PO SCH ×3 (09:30→21:24)
[2018-08-16] MEDS: GABAPENTIN 300 MG CAP PO SCH ×3 (09:31→21:24)
[2018-08-16] MEDS: METOPROLOL TARTRATE 25 MG TAB PO SCH ×2 (09:31→21:24)
[2018-08-16] MEDS: ESCITALOPRAM 20 MG TAB PO SCH (09:31)
[2018-08-16] MEDS: LORazepam 0.5 MG TAB PO PRN ×3 (09:37→23:47)
[2018-08-16 09:55] VITALS: RESP 18
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
[2018-08-16] MEDS ORDERED: FAMOTIDINE 20 MG TAB PO SCH (21:00)
[2018-08-16] MEDS: traZODone HCL 100 MG TAB PO SCH (21:24)
[2018-08-16] MEDS: DIVALPROEX ER 500 MG TAB.ER.24H PO SCH (21:24)
[2018-08-16] MEDS: QUEtiapine 100 MG TAB PO SCH (21:25)
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
[2018-08-17 04:11] VITALS: BP 119/78; PULSE 100; TEMP 97.5
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
== END 2018-08-17 05:47 | disposition left against medical advice (07) ==
LOC: EC 02:33 → 3SCARD 07:02
PROVIDERS: ADMIT Hospitalist; ATTEND Hospitalist
DX: R07.89 Other chest pain (principal); J44.1 Chronic obstructive pulmonary disease with (acute) exacerbation; J45.901 Unspecified asthma with (acute) exacerbation; J44.0 Chronic obstructive pulmonary disease with (acute) lower respiratory infection; J20.9 Acute bronchitis, unspecified; R79.89 Other specified abnormal findings of blood chemistry; I34.0 Nonrheumatic mitral (valve) insufficiency; G40.909 Epilepsy, unspecified, not intractable, without status epilepticus; I10 Essential (primary) hypertension; F41.9 Anxiety disorder, unspecified; F32.9 Major depressive disorder, single episode, unspecified; K59.00 Constipation, unspecified; I49.9 Cardiac arrhythmia, unspecified; D50.9 Iron deficiency anemia, unspecified; F17.210 Nicotine dependence, cigarettes, uncomplicated; F10.229 Alcohol dependence with intoxication, unspecified; Y90.7 Blood alcohol level of 200-239 mg/100 ml; G62.1 Alcoholic polyneuropathy; E66.9 Obesity, unspecified; Z68.34 Body mass index [BMI] 34.0-34.9, adult; J84.10 Pulmonary fibrosis, unspecified; G47.33 Obstructive sleep apnea (adult) (pediatric); Z79.51 Long term (current) use of inhaled steroids; Z79.899 Other long term (current) drug therapy; Z88.5 Allergy status to narcotic agent; Z88.0 Allergy status to penicillin; Z91.041 Radiographic dye allergy status; Z85.42 Personal history of malignant neoplasm of other parts of uterus; Z90.49 Acquired absence of other specified parts of digestive tract; Z90.710 Acquired absence of both cervix and uterus; Z98.84 Bariatric surgery status; Z82.49 Family history of ischemic heart disease and other diseases of the circulatory system; Z83.3 Family history of diabetes mellitus; Z80.9 Family history of malignant neoplasm, unspecified; Z80.1 Family history of malignant neoplasm of trachea, bronchus and lung; Y04.2XXA Assault by strike against or bumped into by another person, initial encounter
CPT/HCPCS: 96376 ×2; 96365; 96372; 96375; 99285; 36415; 94640 ×3; 93005; 93306; 85379; 83880; 80061; 80053; 82728; 82150; 83540; 83550; 83690; 83735; 84484; 85025; 85610; 85730; 81003; 71046; 71275; 78582; G0378 ×3; G0480; A9540; A9567; J1200; J1644; J2930; J2916; J7512; Q9967; 80320

== ENCOUNTER 2018-09-07 14:24 | Emergency (ER) | payer OTHER ==
[2018-09-07] MEDS ORDERED: IPRATROPIUM-ALBUTEROL 3 ML NEB INHALATION STA (15:36)
[2018-09-07] MEDS ORDERED: SODIUM CHLORIDE 0.9% 500 ML 500 ML IV ONE (15:37)
--- NOTE | 2018-09-07 16:06 | CT ---
EXAMINATION TYPE: CT brain cspine wo con, CT facial bones wo con DATE OF EXAM: 09/07/2018 COMPARISON: CT brain January 11, 2013 HISTORY: Fall with facial injury headache and neck pain CT DLP: 1182.1 mGycm. Automated Exposure Control for Dose Reduction was Utilized. TECHNIQUE: CT scan of the head and cervical spine are performed without contrast. FINDINGS: There is no acute intracranial hemorrhage or midline shift identified. Diffuse ventricula r and sulcal prominence is seen. The calvarium is intact. Nasal bones are intact. Zygomatic arches are intact bilaterally. There is no acute comminuted fractur e through the medial wall right orbit axial image 62. There is slight right globe exophthalmos but th is is noted unchanged from 2013 study. Intraconal fat is preserved. Orbital floor is intact. Small am ount of subcutaneous air near the right zygoma is noted on current study. Mandible is intact. Temporo mandibular joints are maintained. Pterygoid plates are intact. There is patchy opacification involvin g right ethmoid sinuses otherwise paranasal sinuses are clear. Cervical spine is visualized in its entirety from C1 through upper thoracic levels and demonstrates r eversal of normal cervical curvature without evidence of acute fracture or dislocation. Prevertebral soft tissue appears within normal limits. The C1-C2 articulation is within normal limits on the cor onal images. There is mild disc space narrowing with moderate to large anterior spur C5-C6 level. The re is moderate disc space narrowing with moderate to advanced anterior spur C6-C7 level. Spinal canal is preserved. Thyroid gland is normal in size. Lung apices are clear. IMPRESSION: 1. There is no acute fracture or dislocation evident in the cervical spine. 2. No acute intracranial hemorrhage or midline shift is seen. Stable mild diffuse cerebral atrophy. 3. New acute comminuted displaced fracture medial wall right orbit with associated opacification or h emorrhage into the adjacent right ethmoid sinuses.
--- NOTE | 2018-09-07 16:08 | ED ---
Fall HPI - General Chief Complaint: Fall Stated Complaint: fall/head lac Time Seen by Provider: 09/07/18 15:24 Source: patient Mode of arrival: ambulatory - History of Present Illness Initial Comments: 47-year-old intoxicated female patient presents the emergency department today for evaluation after experiencing a fall. Patient states that she blacked out, lasting she remembered she was standing on a porch. Patient does present with right sided periorbital swelling and laceration. She denies blurred or double vision. She is reporting headache. Patient is reporting right shoulder pain, neck pain, and pain to her face. Patient does exhibit cough during exam and is wheezing. States she does do breathing treatments at home. She does admit to smoking cigarettes. She denies any numbness or tingling to her extremities. Denies abdominal pain. Patient denies any back pain, chest pain, shortness of breath, weakness, abdominal pain, nausea, vomiting, or difficulties with bowel movements or urination. - Related Data Home Medications Medication Instructions Recorded Confirmed Albuterol Sulfate [Proair Hfa] 2 puff INHALATION RT-QID PRN 08/15/18 09/07/18 Furosemide [Lasix] 20 mg PO DAILY 08/15/18 09/07/18 Metoprolol Tartrate [Lopressor] 12.5 mg PO BID 08/15/18 09/07/18 Omeprazole [PriLOSEC] 20 mg PO AC-BRKFST 08/15/18 09/07/18 Potassium Chloride [Klor-Con 10] 10 meq PO BID 08/15/18 09/07/18 Beclomethasone Dipropionate [Qvar 2 puff INHALATION RT-BID 09/07/18 09/07/18 80 mcg] Ipratropium-Albuterol Nebulize 3 ml INHALATION RT-QID 09/07/18 09/07/18 [Duoneb 0.5 mg-3 mg/3 ml Soln] busPIRone HCl [Buspar] 10 mg PO BID 09/07/18 09/07/18 Allergies Allergy/AdvReac Type Severity Reaction Status Date / Time codeine Allergy Rash/Hives Verified 09/07/18 16:05 Iodinated Contrast- Oral and Allergy Rash/Hives Verified 09/07/18 16:05 IV Dye Penicillins Allergy Rash/Hives Verified 09/07/18 16:05 Review of Systems ROS Statement: Those systems with pertinent positive or pertinent negative responses have been documented in the HPI. ROS Other: All systems not noted in ROS Statement are negative. Past Medical History Past Medical History: Asthma, Cancer, COPD, Hypertension, Seizure Disorder Additional Past Medical History / Comment(s): ETOH abuse-pt drinks on occasion now, past alcohol withdrawal, pt states she had a recent cardiac cath/ANJU at [facility] and has a leaky valve and needs surgery but will need to improve her lung function before they can do surgery, bronchitis, "irregular heart beat", last seizure years ago, normocytic anemia with past transfusions/iron infusions, FARZAD- uses no device, neuropathy bilateral legs/hands, constipation. History of Any Multi-Drug Resistant Organisms: None Reported Past Surgical History: Bariatric Surgery, Cholecystectomy, Heart Catheteri zation, Hysterectomy Additional Past Surgical History / Comment(s): ANJU/cardiac cath recently at [facility], colonoscopy, D&C, Past Anesthesia/Blood Transfusion Reactions: No Reported Reaction Past Psychological History: Anxiety, Depression Smoking Status: Current every day smoker Past Alcohol Use History: Daily Past Drug Use History: None Reported, Marijuana - Past Family History Father Family Medical History: Cancer, Myocardial Infarction ([place]) Additional Family Medical History / Comment(s): Father had lung cancer. He has had 2 MIs-pt does not recall at what age. Father is alive. Mother Family Medical History: Diabetes Mellitus, Hypertension General Exam Limitations: no limitations General appearance: alert, in no apparent distress, appears intoxicated, other (This is a well-developed, well-nourished adult female patient in no acute distress. Vital signs upon presentation are temperature 98.6F, pulse 96, respirations 18, blood pressure 113/78, pulse ox 96% on room air.) Head exam: Present: other (Right forehead swelling, hematoma measuring approximately 2 x 2 centimeters.) Eye exam: Present: PERRL, EOMI, periorbital swelling (Right periorbital swelling), periorbital tenderness, other (Patient has a 2 cm laceration extending from the right bahai to the outer corner of the right eye. This does not involve the canthus. Bleeding is controlled. No evidence of globe injury. No hyphema.). Absent: normal appearance, scleral icterus, conjunctival injection ENT exam: Present: normal exam, normal oropharynx, mucous membranes moist Neck exam: Present: normal inspection, tenderness (Cervical spine tenderness), full ROM. Absent: meningismus, lymphadenopathy Respiratory exam: Present: wheezes (Diffuse expiratory wheezing in the posterior lung hui). Absent: normal lung sounds bilaterally, respiratory distress, rales, rhonchi, stridor Cardiovascular Exam: Present: regular rate, normal rhythm, normal heart sounds. Absent: systolic murmur, diastolic murmur, rubs, gallop, clicks GI/Abdominal exam: Present: soft, normal bowel sounds. Absent: distended, tenderness, guarding, rebound, rigid Back exam: Present: normal inspection. Absent: vertebral tenderness Neurological exam: Present: CN II-XII intact, other (Strength in all 4 extremities is 5/5.). Absent: alert (Drowsy), oriented X3 (Oriented 2) Psychiatric exam: Present: normal affect, normal mood Skin exam: Present: warm, dry, intact, normal color. Absent: rash Course Vital Signs 09/07/18 09/07/18 09/07/18 14:27 16:20 16:30 Temperature 98.6 F Pulse Rate 96 94 Respiratory 18 18 16 Rate Blood Pressure 113/78 113/69 O2 Sat by Pulse 96 Oximetry 09/07/18 09/07/18 09/07/18 16:40 17:12 18:38 Temperature 97.2 F L Pulse Rate 96 93 97 Respiratory 16 16 16 Rate Blood Pressure 119/86 119/86 O2 Sat by Pulse 100 97 Oximetry Procedures - Laceration Laceration #1 Consent Obtained: verbal consent Indication: laceration Site: face (Right lateral orbital region) Size (cm): 3 Description: linear Depth: simple, single layer Anesthetic Used: lidocaine 1% Anesthesia Technique: local infiltration Amount (mls): 5 Pre-repair: irrigated extensively Type of Sutures: nylon Size of Sutures: 6-0 Number of Sutures: 4 Technique: simple, interrupted Patient Tolerated Procedure: well, no complications Medical Decision Making - Medical Decision Making 47-year-old female patient presented to the emergency department today for evaluation after an apparent fall from a porch. Upon arrival patient examination did reveal right-sided facial swelling and right periorbital swelling. Patient did have a 3 cm laceration to the right lateral orbital region. Patient appeared to be intact, vision intact. No evidence of globe injury. CT brain and C-spine were obtained and showed no acute abnormalities. CT facial bones was obtained and did reveal a comminuted displaced fracture of the medial orbital wall. There was hemorrhage into the adjacent right ethmoid sinuses. Labs reviewed and did reveal low hemoglobin which seems to be chronic for the patient. Sodium 146, serum alcohol 259. Laceration was repaired as document. Patient is given kefzol for orbital wall fracture. I did discuss the case with my attending Dr. Gomez who given patient's injury, loss of consciousness, and current alcohol impaired state is concerned for concussion. We currently do not have neurology coverage. Patient will be transferred to [facility] for neurology evaluation. She will also be evaluated by ENT while there for the orbital wall fracture. Patient is updated regarding plan and is agreeable. - Lab Data Result diagrams: 09/07/18 17:10 09/07/18 17:10 Lab Results 09/07/18 09/07/18 09/07/18 Range/Units 17:10 17:10 17:10 WBC 4.0 (3.8-10.6) k/uL RBC 4.58 (3.80-5.40) m/uL Hgb 9.8 L D (11.4-16.0) gm/dL Hct 33.9 L (34.0-46.0) % MCV 74.0 L (80.0-100.0) fL MCH 21.5 L (25.0-35.0) pg MCHC 29.0 L (31.0-37.0) g/dL RDW 22.0 H (11.5-15.5) % Plt Count 289 (150-450) k/uL Neutrophils % 36 % Lymphocytes % 54 % Monocytes % 3 % Eosinophils % 2 % Basophils % 1 % Neutrophils # 1.4 (1.3-7.7) k/uL Lymphocytes # 2.2 (1.0-4.8) k/uL Monocytes # 0.1 (0-1.0) k/uL Eosinophils # 0.1 (0-0.7) k/uL Basophils # 0.0 (0-0.2) k/uL Hypochromasia Marked Poikilocytosis Slight Anisocytosis Moderate Microcytosis Marked PT 10.2 (9.0-12.0) sec INR 0.9 (<1.2) APTT 23.8 (22.0-30.0) sec Sodium 146 H (137-145) mmol/L Potassium 4.1 (3.5-5.1) mmol/L Chloride 110 H (98-107) mmol/L Carbon Dioxide 21 L (22-30) mmol/L Anion Gap 15 mmol/L BUN 8 (7-17) mg/dL Creatinine 0.65 (0.52-1.04) mg/dL Est GFR (CKD-EPI)AfAm >90 (>60 ml/min/1.73 sqM) Est GFR (CKD-EPI)NonAf >90 (>60 ml/min/1.73 sqM) Glucose 88 (74-99) mg/dL Calcium 9.5 (8.4-10.2) mg/dL Total Bilirubin 0.3 (0.2-1.3) mg/dL AST 30 (14-36) U/L ALT 16 (9-52) U/L Alkaline Phosphatase 77 (38-126) U/L Total Protein 8.6 H (6.3-8.2) g/dL Albumin 4.9 (3.5-5.0) g/dL Serum Alcohol 259 H* mg/dL - Radiology Data Radiology results: report reviewed, image reviewed Two-view x-ray of the chest is obtained. Report was reviewed in its entirety. Impression by Dr. Dwyer shows cardiomegaly. No active cardio pulmonary disease. No change. CT facial bones, CT brain without contrast, CT cervical spine without contrast was obtained. Report was reviewed in its entirety. Impression by Dr. Dwyer shows no acute fracture dislocation evident in the cervical spine. No acute intracranial hemorrhage or midline shift is seen. Stable mild diffuse her bilateral atrophy. Acute comminuted displaced fracture of the medial wall the right orbit with associated opacification or hemorrhage into the adjacent right ethmoid sinuses. Disposition Clinical Impression: Right orbital fracture, Concussion, Periorbital contusion of right eye, Facial laceration Disposition: OTHER INSTITUTION NOT DEFINED Condition: Serious Referrals: Lorrie Moore MD [Primary Care Provider] - 1-2 days - Out of Hospital Transfer - Req. Specs Out of Hospital Transfer - Requested Specifics: Other Emergency Center ([facility])
[2018-09-07 17:19] LABS: Anisocytosis Moderate; Basophils % (A) 1 %; Eosinophils # (A) 0.1 k/uL (0-0.7); Eosinophils % (A) 2 %; HCT 33.9 % (34.0-46.0); Hypochromasia Marked; Lymphocytes # (A) 2.2 k/uL (1.0-4.8); Lymphocytes % (A) 54 %; MCH 21.5 pg (25.0-35.0); Mean Platelet Volume 7.2; Microcytosis Marked; Monocytes # (A) 0.1 k/uL (0-1.0); Monocytes % (A) 3 %; Neutrophils # (A) 1.4 k/uL (1.3-7.7); Neutrophils % (A) 36 %; Platelet Count 289 k/uL (150-450); Poikilocytosis Slight; RBC 4.58 m/uL (3.80-5.40)
[2018-09-07 17:20] LABS: HGB 9.8 gm/dL (11.4-16.0)
[2018-09-07 17:26] LABS: INR 0.9 (<1.2); Partial Thromboplastin Time 23.8 sec (22.0-30.0); Prothrombin Time 10.2 sec (9.0-12.0)
[2018-09-07 17:36] LABS: ALT 16 U/L (9-52); AST 30 U/L (14-36); African American GFR (CKD) >90 (>60 ml/min/1.73 sqM); Albumin 4.9 g/dL (3.5-5.0); Alkaline Phosphatase 77 U/L (38-126); Anion Gap 15 mmol/L; Blood Urea Nitrogen 8 mg/dL (7-17); Calcium 9.5 mg/dL (8.4-10.2); Carbon Dioxide 21 mmol/L (22-30); Chloride 110 mmol/L (98-107); Glucose 88 mg/dL (74-99); Potassium 4.1 mmol/L (3.5-5.1); Sodium 146 mmol/L (137-145); Total Bilirubin 0.3 mg/dL (0.2-1.3); Total Protein 8.6 g/dL (6.3-8.2)
[2018-09-07 17:39] LABS: Alcohol 259 mg/dL
[2018-09-07] MEDS ORDERED: LIDOCAINE 1% INJ 10MG/ML (20 ML MDV) SQ ONE (17:52)
--- NOTE | 2018-09-07 18:13 | XR ---
EXAMINATION TYPE: XR shoulder complete RT DATE OF EXAM: 09/07/2018 COMPARISON: NONE HISTORY: Fall. Pain. TECHNIQUE: 3 views FINDINGS: I see no fracture nor dislocation. Joint spaces are fairly normal. There are no pathologic calcifications. IMPRESSION: Negative right shoulder exam.
--- NOTE | 2018-09-07 18:14 | XR ---
EXAMINATION TYPE: XR chest 2V DATE OF EXAM: 09/07/2018 COMPARISON: 08/15/2018 HISTORY: Fall. Pain. TECHNIQUE: Frontal and lateral views of the chest are obtained. FINDINGS: Heart is enlarged. There is no heart failure. Costophrenic angles are clear. Bony thorax i s intact. IMPRESSION: Cardiomegaly. No active cardiopulmonary disease. No change.
[2018-09-07 18:39] VITALS: TEMP 97.2
[2018-09-07] MEDS ORDERED: NICOTINE 21MG/24HR PATCH TRANSDERM STA (19:50)
[2018-09-07] MEDS ORDERED: ACETAMINOPHEN TAB 325 MG TAB PO STA (19:50)
[2018-09-07 20:14] VITALS: BP 120/80; PULSE 92; RESP 18
== END 2018-09-07 20:13 | disposition short-term general hospital (02) ==
LOC: EC 14:24
DX: S02.31XB Fracture of orbital floor, right side, initial encounter for open fracture (principal); S06.0X9A Concussion with loss of consciousness of unspecified duration, initial encounter; F10.129 Alcohol abuse with intoxication, unspecified; I11.9 Hypertensive heart disease without heart failure; G31.9 Degenerative disease of nervous system, unspecified; D64.9 Anemia, unspecified; R06.2 Wheezing; R05 Cough; M25.511 Pain in right shoulder; M54.2 Cervicalgia; J44.9 Chronic obstructive pulmonary disease, unspecified; F32.9 Major depressive disorder, single episode, unspecified; F41.9 Anxiety disorder, unspecified; F17.210 Nicotine dependence, cigarettes, uncomplicated; Z88.0 Allergy status to penicillin; Z88.5 Allergy status to narcotic agent; Z91.041 Radiographic dye allergy status; Z79.51 Long term (current) use of inhaled steroids; Z79.899 Other long term (current) drug therapy; Z95.818 Presence of other cardiac implants and grafts; Z80.1 Family history of malignant neoplasm of trachea, bronchus and lung; Z82.49 Family history of ischemic heart disease and other diseases of the circulatory system; Y90.8 Blood alcohol level of 240 mg/100 ml or more
CPT/HCPCS: 36415; 94640; 80053; 85025; 85610; 85730; 73030; 71046; 72125; 70486; 70450; 99285; 12013; 96365; 96361; G0480; S4990; J0690; J2001; 80320

== ENCOUNTER 2019-12-03 02:46 | Observation (INO) | payer MEDICARE, OTHER ==
[2019-12-03] MEDS ORDERED: SODIUM CHLORIDE 0.9% 1,000 ML IV STA (02:53)
--- NOTE | 2019-12-03 02:58 | ED ---
Chest Pain HPI - General Stated Complaint: chest pain Time Seen by Provider: 12/03/19 02:53 - History of Present Illness Initial Comments: Emmie is a 49-year-old female who presents to the ER today for evaluation of chest pain, shortness of breath, nonproductive cough, subjective fever and chills throughout the day today. She reports that she woke up feeling a sharp and tight pain in her chest. Pain is worse when laying flat better when sitting up. Worse with deep inspiration. Does not seem to be exertional though the patient has not tried to exert herself today. Patient reports she feels mildly short of breath but doesn't feel like she is wheezing like her typical asthma. She reports a nonproductive cough. She states throughout the day today she's had hot flashes and chills but no documented fever. No nausea, vomiting or diarrhea. Patient states she is actually constipated. She has no history of DVT or PE. - Related Data Home Medications Medication Instructions Recorded Confirmed Albuterol Sulfate [Proair Hfa] 2 puff INHALATION RT-QID PRN 08/15/18 09/07/18 Furosemide [Lasix] 20 mg PO DAILY 08/15/18 09/07/18 Metoprolol Tartrate [Lopressor] 12.5 mg PO BID 08/15/18 09/07/18 Omeprazole [PriLOSEC] 20 mg PO AC-BRKFST 08/15/18 09/07/18 Potassium Chloride [Klor-Con 10] 10 meq PO BID 08/15/18 09/07/18 Beclomethasone Dipropionate [Qvar 2 puff INHALATION RT-BID 09/07/18 09/07/18 80 mcg] Ipratropium-Albuterol Nebulize 3 ml INHALATION RT-QID 09/07/18 09/07/18 [Duoneb 0.5 mg-3 mg/3 ml Soln] busPIRone HCl [Buspar] 10 mg PO BID 09/07/18 09/07/18 Allergies Allergy/AdvReac Type Severity Reaction Status Date / Time codeine Allergy Rash/Hives Verified 12/03/19 03:02 Iodinated Contrast Media Allergy Rash/Hives Verified 12/03/19 03:02 [Iodinated Contrast- Oral and IV Dye] Penicillins Allergy Rash/Hives Verified 12/03/19 03:02 Review of Systems ROS Statement: Those systems with pertinent positive or pertinent negative responses have been documented in the HPI. ROS Other: All systems not noted in ROS Statement are negative. EKG Findings - EKG Comments: EKG Findings:: EKG was obtained due to complaint of chest pain, EKG was obtained at 2:52 AM, rate is 116 rhythm is sinus tachycardia there is a leftward axis, MD 144, QRS 92, QTC prolonged at [address] elevations or depressions no evidence of acute ischemia or infarction. Past Medical History Past Medical History: Asthma, Cancer, COPD, Hypertension, Seizure Disorder Additional Past Medical History / Comment(s): ETOH abuse-pt drinks on occasion now, past alcohol withdrawal, pt states she had a recent cardiac cath/ANJU at [facility] and has a leaky valve and needs surgery but will need to improve her lung function before they can do surgery, bronchitis, "irregular heart beat", last seizure years ago, normocytic anemia with past transfusions/iron infusions, FARZAD- uses no device, neuropathy bilateral legs/hands, constipation. History of Any Multi-Drug Resistant Organisms: None Reported Past Surgical History: Bariatric Surgery, Cholecystectomy, Heart Catheterization, Hysterectomy Additional Past Surgical History / Comment(s): ANJU/cardiac cath recently at [facility], colonoscopy, D&C, Past Anesthesia/Blood Transfusion Reactions: No Reported Reaction Past Psychological History: Anxiety, Depression Past Alcohol Use History: Daily Past Drug Use History: None Reported, Marijuana - Past Family History Father Family Medical History: Cancer, Myocardial Infarction ([place]) Additional Family Medical History / Comment(s): Father had lung cancer. He has had 2 MIs-pt does not recall at what age. Father is alive. Mother Family Medical History: Diabetes Mellitus, Hypertension General Exam - General Exam Comments Initial Comments: Physical Exam GENERAL: Patient is well-developed and well-nourished. Patient is nontoxic and well-hydrated and is in no distress. HENT: Normocephalic, Atraumatic. EYES: PERRL, EOMI PULMONARY: Tachypnea CTAB CARDIOVASCULAR: Tachycardia, regular ABDOMEN: Soft and nontender with normal bowel sounds. SKIN: Warm to touch Skin is clear with no lesions or rashes and otherwise unremarkable. : Deferred NEUROLOGIC: Patient is alert and oriented x3. Moving all extremities spontaneously MUSCULOSKELETAL: Normal extremities with adequate strength and full range of motion. No lower extremity swelling or edema. No calf tenderness. PSYCHIATRIC: Normal psychiatric evaluation. Course Vital Signs 12/03/19 12/03/19 02:59 04:02 Temperature 99.3 F Pulse Rate 118 H 117 H Respiratory 21 18 Rate Blood Pressure 145/93 147/110 O2 Sat by Pulse 98 98 Oximetry Chest Pain MDM - MDM Patient was seen and evaluated upon arrival in the emergency department 49-year-old -[place] male with a history of alcohol abuse presenting with left-sided chest pain which seems to be positional which is concerning for pericarditis, she noted be tachycardic and not hypoxic EKG is tachycardia with no signs of ischemia Chest x-ray concerning for cardiomegaly with evidence of heart failure Labs consistent with heart failure with elevated BNP, no trop elevation D-dimer was again elevated a CT was obtained but there is no evidence of PE, again CT confirms evidence of congestive heart failure Given the patient's age, risk factors, evidence of worsening cardiomegaly and development of heart failure when compared to last year I do feel the patient warrants admission to the hospital and evaluation by cardiology. Patient is agreeable to this plan. Disposition Clinical Impression: Chest pain, Congestive heart failure (CHF), Alcohol abuse, Elevated liver transaminase level, Mitral regurgitation Disposition: ADMITTED IP TO THIS HOSP Condition: Stable Is patient prescribed a controlled substance at d/c from ED?: No Referrals: Lorrie Moore MD [Primary Care Provider] - 1-2 days
[2019-12-03 03:53] LABS: Anisocytosis Slight; Basophils % (A) 1 %; Eosinophils % (A) 1 %; HCT 30.6 % (34.0-46.0); HGB 9.1 gm/dL (11.4-16.0); Hypochromasia Marked; Lymphocytes # (A) 1.4 k/uL (1.0-4.8); Lymphocytes % (A) 32 %; MCH 24.3 pg (25.0-35.0); MCHC 29.6 g/dL (31.0-37.0); MCV 82.1 fL (80.0-100.0); Mean Platelet Volume 7.9; Microcytosis Slight; Monocytes # (A) 0.2 k/uL (0-1.0); Monocytes % (A) 4 %; Neutrophils # (A) 2.6 k/uL (1.3-7.7); Neutrophils % (A) 60 %; Platelet Count 315 k/uL (150-450); RBC 3.73 m/uL (3.80-5.40); RDW 19.7 % (11.5-15.5); WBC 4.3 k/uL (3.8-10.6)
--- NOTE | 2019-12-03 03:53 | XR ---
EXAMINATION TYPE: XR chest 2V DATE OF EXAM: 12/03/2019 COMPARISON: 09/07/2018 HISTORY: Chest pain TECHNIQUE: FINDINGS: Heart is enlarged. There is some pulmonary interstitial edema. There is slight blunting of the costophrenic angles. There are chest leads. Bony thorax is intact. IMPRESSION: There is evidence for congestive heart failure that is new compared to last exam. Moderat e cardiomegaly.
[2019-12-03 04:02] LABS: ALT 65 U/L (4-34); AST 144 U/L (14-36); African American GFR (CKD) >90 (>60 ml/min/1.73 sqM); Alkaline Phosphatase 166 U/L (38-126); Anion Gap 9 mmol/L; Blood Urea Nitrogen 7 mg/dL (7-17); Calcium 9.1 mg/dL (8.4-10.2); Carbon Dioxide 24 mmol/L (22-30); Chloride 105 mmol/L (98-107); Glucose 104 mg/dL (74-99); Magnesium 1.2 mg/dL (1.6-2.3); Non-African American GFR(CKD) >90 (>60 ml/min/1.73 sqM); Potassium 3.9 mmol/L (3.5-5.1); Sodium 138 mmol/L (137-145); Total Bilirubin 1.3 mg/dL (0.2-1.3); Total Protein 7.7 g/dL (6.3-8.2)
[2019-12-03 04:14] LABS: INR 1.2 (<1.2); Partial Thromboplastin Time 23.6 sec (22.0-30.0); Prothrombin Time 11.7 sec (9.0-12.0)
[2019-12-03] MEDS ORDERED: MORPHINE SULFATE 4 MG/ML SYRINGE IVP STA (04:20)
[2019-12-03] MEDS ORDERED: diphenhydrAMINE 50 MG/ML 1 ML VIAL IVP STA (04:28)
[2019-12-03] MEDS ORDERED: FAMOTIDINE 20 MG/2 ML VIAL IV STA (04:28)
[2019-12-03] MEDS ORDERED: methylPREDNISolone SOD SUCCI 125 MG/2 ML VIAL IV STA (04:28)
[2019-12-03 04:34] LABS: D-Dimer 1.19 mg/L FEU (<0.60)
[2019-12-03] MEDS: MAGNESIUM SULFATE-D5W PMX 1 GM in DEXTROSE/WATER 1 100ML.BAG IVPB SCH ×4 (04:37→14:51)
--- NOTE | 2019-12-03 05:17 | CT ---
EXAMINATION TYPE: CT chest angio for PE DATE OF EXAM: 12/03/2019 COMPARISON: 08/15/2018 HISTORY: R/O PE CT DLP: 373.40 mGycm Automated exposure control for dose reduction was used. CONTRAST: Performed with IV Contrast, patient injected with 80 mL of Isovue 370. There are 3-D post processed images. There is patchy pulmonary interstitial and airspace edema. Heart is enlarged. There is small right pl eural effusion. There is no pericardial effusion. There is a few small mediastinal lymph nodes measur ing less than 1 cm. There are no hilar masses. There is normal contrast opacification of the pulmonar y arteries. There are no filling defects. Thoracic aorta is intact. There is no aneurysm or dissection. The ascending aorta measures 3.9 cm. The thoracic spine is intact. There is no compression fracture. Sternum is intact. The ribs appear in tact. Upper abdominal soft tissues are intact. IMPRESSION: Cardiomegaly. Pulmonary edema and small right pleural effusion consistent with congestive heart failu re. No evidence of pulmonary embolism.
[2019-12-03] MEDS: FUROSEMIDE 10 MG/ML 4 ML VIAL IV SCH ×2 (05:49→15:09)
[2019-12-03] MEDS ORDERED: IPRATROPIUM-ALBUTEROL 3 ML NEB INHALATION STA (06:14)
[2019-12-03] MEDS ORDERED: MORPHINE SULFATE 4 MG/ML SYRINGE IVP PRN (06:20)
[2019-12-03] MEDS ORDERED: KETOROLAC 15 MG/ML 1 ML VIAL IVP SCH (06:30)
[2019-12-03] MEDS: polyethylene glycoL 3350 17 GM POWD.PACK PO SCH (06:35)
[2019-12-03] MEDS ORDERED: METOPROLOL TARTRATE 12.5 MG TAB PO SCH (09:00)
[2019-12-03] MEDS: POTASSIUM CHLORIDE ER 10 MEQ TAB.ER.PRT PO SCH ×2 (09:19→21:00)
[2019-12-03] MEDS: lisinopriL 5 MG TAB PO SCH (09:19)
[2019-12-03] MEDS ORDERED: HYDROcodone/APAP 5-325MG 1 EACH TAB PO PRN (11:21)
--- NOTE | 2019-12-03 12:00 | ECHOF ---
Referral Reason:new CHF MEASUREMENTS -------- HEIGHT: 162.6 cm WEIGHT: 81.2 kg BP: 142/65 IVSd: 1.4 cm (0.6 - 1.1) LVIDd: 5.3 cm (3.9 - 5.3) LVPWd: 1.3 cm (0.6 - 1.1) IVSs: 1.5 cm LVIDs: 4.4 cm LVPWs: 1.7 cm LA Diam: 5.7 cm (2.7 - 3.8) LAESV Index (A-L): 74.86 ml/m Ao Diam: 2.6 cm (2.0 - 3.7) AV Cusp: 1.7 cm (1.5 - 2.6) LA Diam: 5.8 cm (2.7 - 3.8) FINDINGS -------- Sinus rhythm. This was a technically good study. The left ventricular size is normal. There is moderate concentric left ventricular hypertrophy. O verall left ventricular systolic function is moderately impaired with, an EF between 35 - 40 %. The right ventricle is normal in size. The left atrium is markedly dilated. LA is severely dilated >40 ml/m2 The right atrial size is normal. The aortic valve is trileaflet, and appears structurally normal. No aortic stenosis or regurgitation. The mitral valve leaflets are mildly thickened. Severe mitral regurgitation is present. Mild tricuspid regurgitation present. Right ventricular systolic pressure is normal at < 35 mmHg. There is no pulmonic regurgitation present. The aortic root size is normal. There is no pericardial effusion. CONCLUSIONS -------- 1. The left ventricular size is normal. 2. There is moderate concentric left ventricular hypertrophy. 3. Overall left ventricular systolic function is moderately impaired with, an EF between 35 - 40 %. 4. The right ventricle is normal in size. 5. The left atrium is markedly dilated. 6. LA is severely dilated >40 ml/m2 7. The right atrial size is normal. 8. The mitral valve leaflets are mildly thickened. 9. Severe mitral regurgitation is present. 10. Mild tricuspid regurgitation present. 11. There is no pulmonic regurgitation present. 12. The aortic root size is normal. 13. There is no pericardial effusion. CLIMATOLOGY TEACHER: Joanne Finch RDCS
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
[2019-12-03 13:31] LABS: Magnesium 1.6 mg/dL (1.6-2.3)
[2019-12-03] MEDS: IPRATROPIUM-ALBUTEROL 3 ML NEB INHALATION PRN ×2 (13:44→20:20)
[2019-12-03 14:08] VITALS: BMI 30.7
[2019-12-03] MEDS: HYDROcodone/APAP 5-325MG 1 EACH TAB PO PRN ×2 (14:56→21:00)
[2019-12-03] MEDS ORDERED: MAGNESIUM HYDROXIDE 2,400 MG/10 ML CUP PO PRN (14:58)
[2019-12-03] MEDS: SYMBICORT 80-4.5 MCG INHALER INHALATION SCH (20:21)
[2019-12-03] MEDS: METOPROLOL TARTRATE 25 MG TAB PO SCH (21:00)
[2019-12-03] MEDS: busPIRone HCl 10 MG TAB PO SCH (21:00)
[2019-12-04] MEDS: HYDROcodone/APAP 5-325MG 1 EACH TAB PO PRN (03:11)
[2019-12-04] MEDS: IPRATROPIUM-ALBUTEROL 3 ML NEB INHALATION PRN ×4 (03:25→20:33)
[2019-12-04] MEDS: FUROSEMIDE 10 MG/ML 4 ML VIAL IV SCH (04:54)
[2019-12-04] MEDS: PANTOPRAZOLE 40 MG TABLET PO SCH (04:55)
[2019-12-04 06:56] LABS: Anisocytosis Slight; HCT 34.1 % (34.0-46.0); HGB 9.8 gm/dL (11.4-16.0); Hypochromasia Marked; MCH 24.2 pg (25.0-35.0); MCHC 28.7 g/dL (31.0-37.0); MCV 84.5 fL (80.0-100.0); Mean Platelet Volume 8.2; Platelet Count 286 k/uL (150-450); RBC 4.04 m/uL (3.80-5.40); RDW 19.2 % (11.5-15.5); WBC 6.6 k/uL (3.8-10.6)
[2019-12-04 07:24] LABS: ALT 56 U/L (4-34); AST 133 U/L (14-36); African American GFR (CKD) >90 (>60 ml/min/1.73 sqM); Albumin 4.1 g/dL (3.5-5.0); Alkaline Phosphatase 144 U/L (38-126); Anion Gap 11 mmol/L; Blood Urea Nitrogen 12 mg/dL (7-17); Carbon Dioxide 24 mmol/L (22-30); Chloride 94 mmol/L (98-107); Glucose 96 mg/dL (74-99); Magnesium 1.8 mg/dL (1.6-2.3); Non-African American GFR(CKD) >90 (>60 ml/min/1.73 sqM); Sodium 129 mmol/L (137-145); Total Bilirubin 1.2 mg/dL (0.2-1.3)
[2019-12-04] MEDS: SYMBICORT 80-4.5 MCG INHALER INHALATION SCH ×2 (07:32→20:33)
[2019-12-04] MEDS ORDERED: ACETAMINOPHEN TAB 325 MG TAB PO PRN (08:19)
[2019-12-04] MEDS ORDERED: diphenhydrAMINE 50 MG/ML 1 ML VIAL IVP STA (08:20)
[2019-12-04] MEDS: polyethylene glycoL 3350 17 GM POWD.PACK PO SCH (08:23)
[2019-12-04] MEDS: ENOXAPARIN 40 MG/0.4 ML SYRINGE SQ SCH (08:23)
[2019-12-04] MEDS: busPIRone HCl 10 MG TAB PO SCH ×2 (08:24→20:11)
[2019-12-04] MEDS: lisinopriL 5 MG TAB PO SCH (08:24)
[2019-12-04] MEDS: POTASSIUM CHLORIDE ER 10 MEQ TAB.ER.PRT PO SCH ×2 (08:24→20:11)
[2019-12-04] MEDS: METOPROLOL TARTRATE 25 MG TAB PO SCH ×2 (08:24→20:11)
[2019-12-04] MEDS: LIDOCAINE 5% PATCH TOPICAL SCH (08:55)
[2019-12-04] MEDS ORDERED: FUROSEMIDE 10 MG/ML 4 ML VIAL IV SCH (09:00)
[2019-12-04] MEDS: DOCUSATE 100 MG CAP PO SCH (09:00)
[2019-12-04] MEDS: SENNOSIDES 8.6 MG TAB PO SCH (09:00)
[2019-12-04] MEDS ORDERED: predniSONE 20 MG TAB PO SCH (10:15)
--- NOTE | 2019-12-04 11:21 | P.PN ---
Subjective HISTORY OF PRESENTING ILLNESS This is a pleasant 49-year-old -[place] female past medical history significant for severe mitral regurgitation, nonischemic cardiomyopathy, asthma, hypertension and chronic nicotine dependence. She follows in the office with Dr. Vizcaino. She is seen and examined sitting up in bed in no acute distress. She states overall her breathing has improved. She has put out 3750 cc of urine in the previous 24 hours. She also feels like her breathing improves after her breathing treatments as well. Blood pressure 104/78 heart rate 114 afebrile maintaining oxygen saturation on room air. Laboratory data reviewed, WBC 6.6, hemoglobin 9.8, platelets 286, sodium 130, potassium 4.0, creatinine 0.7 and magnesium 1.8. Currently maintained on Lasix 40 mg IV twice a day, lisinopril 5 mg daily and Lopressor 25 mg twice a day. PHYSICAL EXAMINATION CONSTITUTIONAL: No apparent distress. HEENT: Head is normocephalic. Pupils are equal, round. Sclerae anicteric. Mucous membranes of the mouth are moist. No JVD. No carotid bruit. CHEST EXAMINATION: Expiratory wheezes improved from yesterday, no rhonchi or rales. No chest wall tenderness is noted on palpation or with deep breathing. HEART EXAMINATION: Regular rate and rhythm. S1, S2 heard. Soft systolic ejection murmur at the apex, no gallops or rub. EXTREMITIES: 2+ peripheral pulses, no lower extremity edema and no calf tenderness. ASSESSMENT Acute on chronic systolic heart failure Valvular heart disease Severe mitral regurgitation Hyponatremia Nonischemic cardiomyopathy Hypomagnesemia Hypertension Asthma Transaminitis Chronic nicotine dependence PLAN Suspect her breathing is from a combination of heart failure and pulmonary process. Decrease IV lasix to daily dosing. Continue to monitor heart rates on telemetry. Ongoing intake and output documentation. Follow electrolytes and renal function in the morning. Further recommendations to follow based on clinical course. Nurse Practitioner note has been reviewed, I agree with a documented findings and plan of care. Patient was seen and examined. Objective - Vital Signs Vital signs: Vital Signs Temp 98.9 F 12/04/19 08:20 Pulse 114 H 12/04/19 08:20 Resp 16 12/04/19 08:20 BP 104/78 12/04/19 08:20 Pulse Ox 98 12/04/19 08:20 Intake & Output 12/03/19 12/04/19 12/04/19 18:59 06:59 18:59 Intake Total 1210 480 360 Output Total 3450 300 Balance -2240 180 360 Weight 81.193 kg 85.5 kg Intake: Intake, IV Titration 200 Amount Magnesium Sulfate-D5w Pmx 200 1 gm In Dextrose/Water 1 100ml.bag @ 100 mls/hr IVPB Q1H [facility] Rx#: [id number] Oral 1010 480 360 Output: Urine 3450 300 Other: Voiding Method Toilet Toilet Toilet # Voids 3 1 - Labs CBC & Chem 7: 12/04/19 06:22 12/04/19 09:21 Labs: Abnormal Lab Results - Last 24 Hours (Table) 12/03/19 12/04/19 12/04/19 Range/Units 13:06 06:22 06:22 Hgb 9.8 L (11.4-16.0) gm/dL MCH 24.2 L (25.0-35.0) pg MCHC 28.7 L (31.0-37.0) g/dL RDW 19.2 H (11.5-15.5) % ESR 28 H (0-20) mm/hr Sodium 129 L (137-145) mmol/L Chloride 94 L (98-107) mmol/L AST 133 H (14-36) U/L ALT 56 H (4-34) U/L Alkaline Phosphatase 144 H (38-126) U/L 12/04/19 Range/Units 09:21 Hgb (11.4-16.0) gm/dL MCH (25.0-35.0) pg MCHC (31.0-37.0) g/dL RDW (11.5-15.5) % ESR (0-20) mm/hr Sodium 130 L (137-145) mmol/L Chloride (98-107) mmol/L AST (14-36) U/L ALT (4-34) U/L Alkaline Phosphatase (38-126) U/L
--- NOTE | 2019-12-04 11:21 | P.PN ---
Subjective 49-year-old female admitted for the CHF exacerbation patient the serum sodium did drop patient was switched to oral Lasix I'll discontinue the Lasix because of significant hyponatremia from Lasix and the patient appears to be fairly euvolemic at this time. Patient is more wheezing at this time patient was started on oral steroids at 40 mg patient is feeling tired and weak. Constitutional: As mentioned in HPI Cardio vascular: denied any chest pain, palpitations Gastrointestinal denied any nausea vomiting Pulmonary: As mentioned in HPI Neurologic denied any new focal deficits All inpatient medications were reviewed and appropriate changes in these medications as dictated in the interval history and assessment and plan. Objective - Vital Signs Vital signs: Vital Signs Temp 98.9 F 12/04/19 08:20 Pulse 114 H 12/04/19 08:20 Resp 16 12/04/19 08:20 BP 104/78 12/04/19 08:20 Pulse Ox 98 12/04/19 08:20 Intake & Output 12/03/19 12/04/19 12/04/19 18:59 06:59 18:59 Intake Total 1210 480 360 Output Total 3450 300 Balance -2240 180 360 Weight 81.193 kg 85.5 kg Intake: Intake, IV Titration 200 Amount Magnesium Sulfate-D5w Pmx 200 1 gm In Dextrose/Water 1 100ml.bag @ 100 mls/hr IVPB Q1H [facility] Rx#: [id number] Oral 1010 480 360 Output: Urine 3450 300 Other: Voiding Method Toilet Toilet Toilet # Voids 3 1 - Exam PHYSICAL EXAMINATION: GENERAL: The patient is alert and oriented x3, not in any acute distress. Well developed, well nourished. HEENT: Pupils are round and equally reacting to light. EOMI. No scleral icterus. No conjunctival pallor. Normocephalic, atraumatic. No pharyngeal erythema. No thyromegaly. CARDIOVASCULAR: S1 and S2 present. No murmurs, rubs, or gallops. PULMONARY: Significant expiratory wheezing with the decreased air entry bilateral lung hui and mild rhonchi bilaterally ABDOMEN: Soft, nontender, nondistended, normoactive bowel sounds. No palpable organomegaly. MUSCULOSKELETAL: No joint swelling or deformity. EXTREMITIES: No cyanosis, clubbing, or pedal edema. NEUROLOGICAL: Gross neurological examination did not reveal any focal deficits. SKIN: No rashes. - Labs CBC & Chem 7: 12/04/19 06:22 12/04/19 09:21 Labs: Abnormal Lab Results - Last 24 Hours (Table) 12/03/19 12/04/19 12/04/19 Range/Units 13:06 06:22 06:22 Hgb 9.8 L (11.4-16.0) gm/dL MCH 24.2 L (25.0-35.0) pg MCHC 28.7 L (31.0-37.0) g/dL RDW 19.2 H (11.5-15.5) % ESR 28 H (0-20) mm/hr Sodium 129 L (137-145) mmol/L Chloride 94 L (98-107) mmol/L AST 133 H (14-36) U/L ALT 56 H (4-34) U/L Alkaline Phosphatase 144 H (38-126) U/L 12/04/19 Range/Units 09:21 Hgb (11.4-16.0) gm/dL MCH (25.0-35.0) pg MCHC (31.0-37.0) g/dL RDW (11.5-15.5) % ESR (0-20) mm/hr Sodium 130 L (137-145) mmol/L Chloride (98-107) mmol/L AST (14-36) U/L ALT (4-34) U/L Alkaline Phosphatase (38-126) U/L Assessment and Plan Plan: -COPD with a decreased acute exacerbation patient was started on systemic steroids and doxycycline. -Congestive heart failure chronic systolic dysfunction with acute exacerbation: Patient is euvolemic and may be actually hypovolemic IV Lasix will risk and reviewed. -Severe mitral regurgitation -Chest pain appears to be musculoskeletal in valid by cardiology. Ruled out pulmonary embolism -COPD without any acute exacerbation nicotine cessation counseling was provided -Hypomagnesemia magnesium was replaced -Patient had history of alcohol abuse in the past but as per the patient she doesn't drink alcohol anymore does drink about 4 beers a week. -Hypertension -Possible acute alcoholic hepatitis liver enzymes are bit better today -Tachycardia sinus tachycardia: Probably because of her hypoxemia patient underwent a dose will be increased and will be treated for heart failure. -DVT prophylaxis
[2019-12-04] MEDS: DOXYCYCLINE 100 MG CAP PO SCH ×2 (12:19→20:13)
[2019-12-04] MEDS: guaiFENesin 600 MG TABLET.ER PO SCH (17:18)
[2019-12-05] MEDS: DOCUSATE 100 MG CAP PO SCH (02:24)
[2019-12-05] MEDS: PANTOPRAZOLE 40 MG TABLET PO SCH (06:31)
[2019-12-05] MEDS: SYMBICORT 80-4.5 MCG INHALER INHALATION SCH (07:56)
[2019-12-05] MEDS: IPRATROPIUM-ALBUTEROL 3 ML NEB INHALATION PRN (07:56)
--- NOTE | 2019-12-05 08:20 | P.DS ---
Providers Date of admission: 12/03/19 05:22 Attending physician: Zoltan Sims Consults: 12/03/19 05:22 Consult Physician Routine Consulting Provider: [facility] Consult Reason/Comments: heart failure Do you want consulting provider notified?: Yes, Notify in am Primary care physician: [facility] Course: 49-year-old female admitted for the CHF exacerbation patient the serum sodium did drop patient was switched to oral Lasix I'll discontinue the Lasix because of significant hyponatremia from Lasix and the patient appears to be fairly euvolemic at this time. Patient is more wheezing at this time patient was started on oral steroids at 40 mg patient is feeling tired and weak. 12/05/2019 Patient the still wheezing a bit but saturating well on room air will ablate the patient if he. Patient is saturating well on ambulation will be discharged today. Patient mostly appears to have stable exacerbation rather than CHF exacerbation patient was off Lasix I do not have today morning labs and expecting her sodium did improve. Patient will be discharged on the same dose of Lasix she was on at home. Patient had EF of around 35-40%. PHYSICAL EXAMINATION: GENERAL: The patient is alert and oriented x3, not in any acute distress. Well developed, well nourished. HEENT: Pupils are round and equally reacting to light. EOMI. No scleral icterus. No conjunctival pallor. Normocephalic, atraumatic. No pharyngeal erythema. No thyromegaly. CARDIOVASCULAR: S1 and S2 present. No murmurs, rubs, or gallops. PULMONARY: Still has some expiratory wheezing ABDOMEN: Soft, nontender, nondistended, normoactive bowel sounds. No palpable organomegaly. MUSCULOSKELETAL: No joint swelling or deformity. EXTREMITIES: No cyanosis, clubbing, or pedal edema. NEUROLOGICAL: Gross neurological examination did not reveal any focal deficits. SKIN: No rashes. Assessment and Plan Plan: -COPD with a decreased acute exacerbation patient will be discharged on on systemic steroids and doxycycline. -Congestive heart failure chronic systolic dysfunction with acute exacerbation: Wasn't euvolemic. Patient has EF of around 35-40% -Severe mitral regurgitation -Chest pain appears to be musculoskeletal in evaluated by cardiology. Ruled out pulmonary embolism -COPD without any acute exacerbation nicotine cessation counseling was provided -Hypomagnesemia magnesium was replaced -Patient had history of alcohol abuse in the past but as per the patient she doesn't drink alcohol anymore does drink about 4 beers a week. -Hypertension -Possible acute alcoholic hepatitis liver enzymes are stable but bit elevated -Tachycardia sinus tachycardia: Probably because of her hypoxemia, improved now Patient Condition at Discharge: Stable Plan - Discharge Summary Discharge Rx Participant: Yes New Discharge Prescriptions: New guaiFENesin [Mucinex] 600 mg PO Q12HR #20 tablet.er predniSONE 10 mg PO DAILY #15 tab Doxycycline [Vibramycin] 100 mg PO BID #6 cap lisinopriL [Zestril] 5 mg PO DAILY #30 tab Continue Omeprazole [PriLOSEC] 20 mg PO AC-BRKFST Furosemide [Lasix] 20 mg PO DAILY Potassium Chloride [Klor-Con 10] 10 meq PO BID Metoprolol Tartrate [Lopressor] 12.5 mg PO BID Albuterol Sulfate [Proair Hfa] 2 puff INHALATION RT-QID PRN PRN Reason: Shortness Of Breath busPIRone HCl [Buspar] 10 mg PO BID Ipratropium-Albuterol Nebulize [Duoneb 0.5 mg-3 mg/3 ml Soln] 3 ml INHALATION RT-QID Fluticasone/Salmeterol [Advair 100-50 Diskus] 1 puff INHALATION RT-BID Discharge Medication List Albuterol Sulfate [Proair Hfa] 2 puff INHALATION RT-QID PRN 08/15/18 [History] Furosemide [Lasix] 20 mg PO DAILY 08/15/18 [History] Metoprolol Tartrate [Lopressor] 12.5 mg PO BID 08/15/18 [History] Omeprazole [PriLOSEC] 20 mg PO AC-BRKFST 08/15/18 [History] Potassium Chloride [Klor-Con 10] 10 meq PO BID 08/15/18 [History] Ipratropium-Albuterol Nebulize [Duoneb 0.5 mg-3 mg/3 ml Soln] 3 ml INHALATION RT-QID 09/07/18 [History] busPIRone HCl [Buspar] 10 mg PO BID 09/07/18 [History] Fluticasone/Salmeterol [Advair 100-50 Diskus] 1 puff INHALATION RT-BID 12/03/19 [History] Doxycycline [Vibramycin] 100 mg PO BID #6 cap 12/05/19 [Rx] guaiFENesin [Mucinex] 600 mg PO Q12HR #20 tablet.er 12/05/19 [Rx] lisinopriL [Zestril] 5 mg PO DAILY #30 tab 12/05/19 [Rx] predniSONE 10 mg PO DAILY #15 tab 12/05/19 [Rx] Follow up Appointment(s)/Referral(s): Mitch Vizcaino MD [STAFF PHYSICIAN] - 2 Weeks Lorrie Moore MD [Primary Care Provider] - 3 Days Nicolas Tan MD [STAFF PHYSICIAN] - 1 Week Ambulatory/Diagnostic Orders: Basic Metabolic Panel [LAB.AMB] Time Frame: 3 Days, Location: None Selected Discharge Disposition: HOME SELF-CARE
[2019-12-05] MEDS ORDERED: predniSONE 20 MG TAB PO SCH (09:00)
[2019-12-05] MEDS ORDERED: METOPROLOL TARTRATE 25 MG TAB PO STA (09:28)
[2019-12-05] MEDS ORDERED: FUROSEMIDE 20 MG TAB PO SCH (09:30)
[2019-12-05] MEDS: polyethylene glycoL 3350 17 GM POWD.PACK PO SCH (09:32)
[2019-12-05] MEDS: guaiFENesin 600 MG TABLET.ER PO SCH (09:33)
[2019-12-05] MEDS: SENNOSIDES 8.6 MG TAB PO SCH (09:34)
[2019-12-05] MEDS: METOPROLOL TARTRATE 25 MG TAB PO SCH (09:34)
[2019-12-05] MEDS: POTASSIUM CHLORIDE ER 10 MEQ TAB.ER.PRT PO SCH (09:35)
[2019-12-05] MEDS: busPIRone HCl 10 MG TAB PO SCH (09:35)
[2019-12-05] MEDS: lisinopriL 5 MG TAB PO SCH (09:35)
[2019-12-05] MEDS: ENOXAPARIN 40 MG/0.4 ML SYRINGE SQ SCH (09:36)
[2019-12-05 09:37] LABS: African American GFR (CKD) >90 (>60 ml/min/1.73 sqM); Anion Gap 6 mmol/L; Blood Urea Nitrogen 10 mg/dL (7-17); Calcium 8.8 mg/dL (8.4-10.2); Carbon Dioxide 28 mmol/L (22-30); Chloride 98 mmol/L (98-107); Glucose 104 mg/dL (74-99); Magnesium 1.6 mg/dL (1.6-2.3); Non-African American GFR(CKD) >90 (>60 ml/min/1.73 sqM); Sodium 132 mmol/L (137-145)
[2019-12-05] MEDS: LIDOCAINE 5% PATCH TOPICAL SCH (10:51)
[2019-12-05] MEDS: DOXYCYCLINE 100 MG CAP PO SCH (10:52)
[2019-12-05] MEDS ORDERED: ONDANSETRON 4 MG/2 ML VIAL IVP PRN (12:49)
[2019-12-05] MEDS: MAGNESIUM SULFATE-D5W PMX 1 GM in DEXTROSE/WATER 1 100ML.BAG IVPB SCH ×3 (13:21→16:45)
--- NOTE | 2019-12-05 15:01 | P.PN ---
Subjective Progress Note Date: 12/05/19 HISTORY OF PRESENT ILLNESS: Patient examined this morning at the bedside. She reports feeling weak. She denies chest pain or pressure. She reports mild shortness of breath. Patient had a nonsustained run of V. tach this morning. Patient hypotensive this afternoon with a BP of 89/49. Potassium 4.0. Magnesium 1.6. PHYSICAL EXAM: VITAL SIGNS: Reviewed. GENERAL: Well-developed in no acute distress. NECK: Supple. No JVD or thyromegaly LUNGS: Respirations even and unlabored. Lungs diminished. HEART: Regular rate and rhythm. S1 and S2 heard. EXTREMITIES: Normal range of motion. No clubbing or cyanosis. Peripheral pulses intact. No lower extremity edema ASSESSMENT: Acute on chronic systolic heart failure Valvular heart disease Severe mitral regurgitation Hyponatremia Nonischemic cardiomyopathy Hypomagnesemia Hypertension Asthma Transaminitis Chronic nicotine dependence Nonsustained ventricular tachycardia PLAN: Supplement magnesium IV Continue beta leoncio. Attempted to increase dose today but patient unable to tolerate due to hypotension. Lisinopril added yesterday. However, patient is hypotensive today. Will DC lisinopril. Continue home dose of Lasix 20mg PO daily Will attempt to increase beta leoncio and reinitiate lisinopril on an outpatient basis pending trend of blood pressures on an outpatient basis Further recommendations pending Nurse practitioner note has been reviewed by physician. Signing provider agrees with the documented findings, assessment, and plan of care. Objective - Vital Signs Vital signs: Vital Signs Temp 98.1 F 12/05/19 12:32 Pulse 102 H 12/05/19 12:32 Resp 15 12/05/19 12:32 BP 89/49 12/05/19 12:32 Pulse Ox 97 12/05/19 12:32 Intake & Output 12/04/19 12/05/19 12/05/19 18:59 06:59 18:59 Intake Total 1220 180 Output Total 100 Balance 1120 180 Weight 85.9 kg Intake: Oral 1220 180 Output: Urine 100 Other: Voiding Method Toilet Toilet Toilet # Voids 1 - Labs CBC & Chem 7: 12/04/19 06:22 12/05/19 08:56 Labs: Abnormal Lab Results - Last 24 Hours (Table) 12/05/19 Range/Units 08:56 Sodium 132 L (137-145) mmol/L Glucose 104 H (74-99) mg/dL
[2019-12-05 15:52] VITALS: BP 103/75; PULSE 93; RESP 16; TEMP 98.3
[2019-12-05] MEDS ORDERED: METOPROLOL TARTRATE 50 MG TAB PO SCH (21:00)
[2019-12-05] MEDS ORDERED: METOPROLOL TARTRATE 25 MG TAB PO SCH (21:00)
--- NOTE | 2019-12-11 13:58 | CDI ---
Date: 12.11.2019 CDS/Allied Health Instructor Name: Marcella Jones Phone: If any questions, call Glory Graham Pneumatic Tester at [phone] Patient Name: Emmie Hurst Admit Date 12.03.19 Discharge Date: 12.05.19 ATTENTION: The [facility] Coding Staff appreciate your assistance in clarifying documentation. Please respond to the clarification below the line at the bottom and electronically sign. The [facility] Coding staff will review the response and follow-up if needed. Please note: Queries are made part of the Legal Health Record. If you have any questions, please contact the Pneumatic Tester. Dear Dr. Vilchis In order to code to the greatest specificity and for the greatest reimbursement I need the following information: Per your PN (12.05.19) documentation, under the assessment you have documented COPD with a decreased acute exacerbation then several lines down you documented COPD w/o any acute exacerbation. Please clarify whether or not pt had exacerbation with the COPD. Thank you for your kind consideration. No acute exacerbation that was miss typed decreased acute exacerbation MTDD
== END 2019-12-05 15:48 | disposition home or self-care (01) ==
LOC: EC 02:46 → 3SCARD 05:22
PROVIDERS: ADMIT Hospitalist; ATTEND Hospitalist
DX: I34.0 Nonrheumatic mitral (valve) insufficiency (principal); I50.23 Acute on chronic systolic (congestive) heart failure; R09.02 Hypoxemia; R07.89 Other chest pain; J44.9 Chronic obstructive pulmonary disease, unspecified; E83.42 Hypomagnesemia; I11.0 Hypertensive heart disease with heart failure; I47.2 Ventricular tachycardia; R74.01 Elevation of levels of liver transaminase levels; E87.1 Hypo-osmolality and hyponatremia; R94.31 Abnormal electrocardiogram [ECG] [EKG]; G47.33 Obstructive sleep apnea (adult) (pediatric); G62.9 Polyneuropathy, unspecified; F41.9 Anxiety disorder, unspecified; F32.9 Major depressive disorder, single episode, unspecified; I42.8 Other cardiomyopathies; R35.0 Frequency of micturition; F17.210 Nicotine dependence, cigarettes, uncomplicated; Z71.6 Tobacco abuse counseling; Z79.899 Other long term (current) drug therapy; Z79.51 Long term (current) use of inhaled steroids; Z88.5 Allergy status to narcotic agent; Z91.041 Radiographic dye allergy status; Z88.0 Allergy status to penicillin; Z85.9 Personal history of malignant neoplasm, unspecified; Z86.69 Personal history of other diseases of the nervous system and sense organs; Z98.890 Other specified postprocedural states; Z87.09 Personal history of other diseases of the respiratory system; Z86.2 Personal history of diseases of the blood and blood-forming organs and certain disorders involving the immune mechanism; Z87.19 Personal history of other diseases of the digestive system; Z98.84 Bariatric surgery status; Z90.49 Acquired absence of other specified parts of digestive tract; Z90.710 Acquired absence of both cervix and uterus; Z91.419 Personal history of unspecified adult abuse; Z80.1 Family history of malignant neoplasm of trachea, bronchus and lung; Z82.49 Family history of ischemic heart disease and other diseases of the circulatory system; Z83.3 Family history of diabetes mellitus
CPT/HCPCS: 96376 ×2; 96366 ×3; 96372 ×2; 96375 ×2; 96361; 96365; 99285; 36415; 94640 ×6; 94760; 93005; 93306; 85379; 83880; 80053 ×2; 80048; 85652; 83690; 83735 ×3; 84295; 84484; 85025; 85027; 85610; 85730; 86140; 71046; 71275; G0378 ×3; J2270; J1200 ×2; J1940 ×2; J2930; J1650 ×2; J3475 ×2; J1885; J7512; Q9967

== ENCOUNTER 2019-12-28 23:34 | Emergency (ER) | payer MEDICARE, OTHER ==
[2019-12-28 23:40] VITALS: BP 129/101; RESP 16; TEMP 98.5
[2019-12-28 23:45] VITALS: PULSE 122
--- NOTE | 2019-12-29 05:04 | ED ---
General Adult HPI - General Chief complaint: Arrhythmia/Palpitations Stated complaint: tachycardia Time Seen by Provider: 12/28/19 23:47 Source: patient, EMS Mode of arrival: EMS Limitations: physical limitation - History of Present Illness Initial comments: 49 year-old female patient who apparently presented for racing heart. I heard a commotion near her room and went to investigate. Patient was refusing care. I did offer to provide medical treatment and exam. Patient refused multiple times and left the department. - Related Data Home Medications Medication Instructions Recorded Confirmed Albuterol Sulfate [Proair Hfa] 2 puff INHALATION RT-QID PRN 08/15/18 12/03/19 Furosemide [Lasix] 20 mg PO DAILY 08/15/18 12/03/19 Omeprazole [PriLOSEC] 20 mg PO AC-BRKFST 08/15/18 12/03/19 Potassium Chloride [Klor-Con 10] 10 meq PO BID 08/15/18 12/03/19 Ipratropium-Albuterol Nebulize 3 ml INHALATION RT-QID 09/07/18 12/03/19 [Duoneb 0.5 mg-3 mg/3 ml Soln] busPIRone HCl [Buspar] 10 mg PO BID 09/07/18 12/03/19 Fluticasone/Salmeterol [Advair 1 puff INHALATION RT-BID 12/03/19 12/03/19 100-50 Diskus] Previous Rx's Medication Instructions Recorded Doxycycline [Vibramycin] 100 mg PO BID #6 cap 12/05/19 Metoprolol Tartrate [Lopressor] 25 mg PO BID #60 tablet 12/05/19 guaiFENesin [Mucinex] 600 mg PO Q12HR #20 tablet.er 12/05/19 predniSONE 10 mg PO DAILY #15 tab 12/05/19 Allergies Allergy/AdvReac Type Severity Reaction Status Date / Time codeine Allergy Rash/Hives Verified 12/28/19 23:40 Iodinated Contrast Media Allergy Rash/Hives Verified 12/28/19 23:40 [Iodinated Contrast- Oral and IV Dye] Penicillins Allergy Rash/Hives Verified 12/28/19 23:40 Review of Systems ROS Statement: Those systems with pertinent positive or pertinent negative responses have been documented in the HPI. ROS Other: All systems not noted in ROS Statement are negative. Past Medical History Past Medical History: Asthma, Cancer, COPD, Hypertension, Seizure Disorder Additional Past Medical History / Comment(s): ETOH abuse-pt drinks on occasion now, past alcohol withdrawal, pt states she had a recent cardiac cath/ANJU at [facility] and has a leaky valve and needs surgery but will need to improve her lung function before they can do surgery, bronchitis, "irregular heart beat", last seizure years ago, normocytic anemia with past transfusions/iron infusions, FARZAD- uses no device, neuropathy bilateral legs/hands, constipation. History of Any Multi-Drug Resistant Organisms: None Reported Past Surgical History: Bariatric Surgery, Cholecystectomy, Heart Catheterization, Hysterectomy Additional Past Surgical History / Comment(s): ANJU/cardiac cath recently at [facility], colonoscopy, D&C, Past Anesthesia/Blood Transfusion Reactions: No Reported Reaction Past Psychological History: Anxiety, Depression Smoking Status: Current every day smoker Past Alcohol Use History: Daily Past Drug Use History: None Reported, Marijuana - Past Family History Father Family Medical History: Cancer, Myocardial Infarction ([place]) Additional Family Medical History / Comment(s): Father had lung cancer. He has had 2 MIs-pt does not recall at what age. Father is alive. 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 Disposition Clinical Impression: Patient left without being seen Disposition: Left W/O Being Seen by Phys Condition: Undetermined Referrals: Lorrie Moore MD [Primary Care Provider] - 1-2 days
== END 2019-12-28 23:55 | disposition left against medical advice (07) ==
LOC: EC 23:34
DX: R00.0 Tachycardia, unspecified (principal); J44.9 Chronic obstructive pulmonary disease, unspecified; I10 Essential (primary) hypertension; F41.9 Anxiety disorder, unspecified; F17.200 Nicotine dependence, unspecified, uncomplicated; Z79.51 Long term (current) use of inhaled steroids; Z79.899 Other long term (current) drug therapy; Z88.5 Allergy status to narcotic agent; Z88.0 Allergy status to penicillin; Z91.041 Radiographic dye allergy status; Z53.21 Procedure and treatment not carried out due to patient leaving prior to being seen by health care provider
CPT/HCPCS: 99284

== ENCOUNTER 2020-07-03 21:34 | Inpatient (IN) | payer MEDICARE, OTHER ==
[2020-07-03] MEDS ORDERED: SODIUM CHLORIDE 0.9% 1,000 ML IV STA ×2 (21:48→23:36)
[2020-07-03] MEDS ORDERED: SODIUM CHLORIDE 0.9% 1,000 ML IV ONE (21:48)
[2020-07-03 22:00] LABS: Anisocytosis Slight; HCT 36.3 % (34.0-46.0); HGB 12.6 gm/dL (11.4-16.0); MCH 31.9 pg (25.0-35.0); MCHC 34.7 g/dL (31.0-37.0); MCV 91.8 fL (80.0-100.0); Mean Platelet Volume 7.5; Platelet Count 254 k/uL (150-450); RBC 3.95 m/uL (3.80-5.40); RDW 18.2 % (11.5-15.5); WBC 4.1 k/uL (3.8-10.6)
[2020-07-03] MEDS ORDERED: DILTIAZEM 5 MG/ML 5 ML VIAL IVP STA (22:05)
[2020-07-03] MEDS ORDERED: PANTOPRAZOLE 40 MG/10 ML VIAL IVP STA (22:10)
[2020-07-03] MEDS ORDERED: ONDANSETRON 4 MG/2 ML VIAL IVP STA (22:10)
--- NOTE | 2020-07-03 22:13 | XR ---
EXAMINATION TYPE: XR chest 2V DATE OF EXAM: 07/03/2020 COMPARISON: 12/03/2019 HISTORY: Chest pain TECHNIQUE: 2 views FINDINGS: There is no heart failure nor confluent pneumonic infiltrate. Costophrenic angles are clear . There are chest leads. IMPRESSION: No active cardiopulmonary disease. There is clearing of the lower lobe pulmonary infiltra jennifer and pulmonary congestion compared to old exam.
[2020-07-03 22:18] LABS: ALT 32 U/L (4-34); AST 83 U/L (14-36); African American GFR (CKD) 86 (>60 ml/min/1.73 sqM); Albumin 4.4 g/dL (3.5-5.0); Alkaline Phosphatase 94 U/L (38-126); Anion Gap 19 mmol/L; Blood Urea Nitrogen 12 mg/dL (7-17); C Reactive Protein <0.5 mg/dL (<1.0); Calcium 8.7 mg/dL (8.4-10.2); Carbon Dioxide 19 mmol/L (22-30); Chloride 96 mmol/L (98-107); Glucose 98 mg/dL (74-99); LDH 291 U/L (313-618); Lipase 105 U/L (23-300); Magnesium 1.4 mg/dL (1.6-2.3); Non-African American GFR(CKD) 74 (>60 ml/min/1.73 sqM); Phosphorus 3.5 mg/dL (2.5-4.5); Potassium 3.9 mmol/L (3.5-5.1); Sodium 134 mmol/L (137-145); Total Bilirubin 0.3 mg/dL (0.2-1.3); Total Protein 7.4 g/dL (6.3-8.2)
[2020-07-03 22:37] LABS: Alcohol 378 mg/dL
[2020-07-03 22:38] LABS: D-Dimer 0.58 mg/L FEU (<0.60); Partial Thromboplastin Time 24.8 sec (22.0-30.0); Prothrombin Time 10.8 sec (9.0-12.0)
[2020-07-03 23:12] LABS: Lymphocytes # (M) 2.95 k/uL (1.0-4.8); Monocytes # (M) 0.16 k/uL (0-1.0); Neutrophils # (M) 0.98 k/uL (1.3-7.7); Neutrophils % (M) 24 %; Nucleated Red Blood Cells 0 /100 WBC (0-0); Total Cells Counted 100
--- NOTE | 2020-07-03 23:33 | ED ---
Chest Pain HPI - General Chief Complaint: Chest Pain Stated Complaint: Chest Pain Time Seen by Provider: 07/03/20 21:36 Source: patient, RN notes reviewed, old records reviewed Mode of arrival: EMS Limitations: no limitations - History of Present Illness Initial Comments: This is a 49-year-old female who does present with significant intoxication weak lightheaded and dizzy with some shortness of breath, patient was drinking alcohol today but states that she is very lightheaded feels like she may pass out. Patient does have history of atrial fibrillation states her heart rate feels like it superfast, does admit to maybe not taking medication as prescribed as of late. No travel history no sick contacts. Patient feels weak MD Complaint: chest pain, other (Rapid heart rate and shortness of breath) -: hour(s) Onset: during rest Pain Location: substernal Pain Radiation: none Severity: moderate Severity scale (1-10): 4 Quality: aching, heaviness Improves With: nothing Worsens With: exertion Context: new medications Anginal Symptoms: nausea, vomiting Other Symptoms: palpitations Treatments Prior to Arrival: none - Related Data Home Medications Medication Instructions Recorded Confirmed Albuterol Sulfate [Proair Hfa] 2 puff INHALATION RT-QID PRN 08/15/18 07/03/20 Potassium Chloride [Klor-Con 10] 10 meq PO BID 08/15/18 07/03/20 Budesonide [Pulmicort] 0.5 mg INHALATION RT-BID 07/03/20 07/03/20 Furosemide [Lasix] 40 mg PO BID 07/03/20 07/03/20 Levothyroxine Sodium [Synthroid] 150 mcg PO DAILY 07/03/20 07/03/20 Sacubitril/Valsartan [Entresto 49 1 tab PO DAILY 07/03/20 07/03/20 mg-51 mg Tablet] Vitamin B Complex 1 cap PO DAILY 07/03/20 07/03/20 oxyCODONE-APAP 10-325MG [Percocet 1 tab PO Q8HR PRN 07/03/20 07/03/20 10-325 mg] Previous Rx's Medication Instructions Recorded Amiodarone [Cordarone] 200 mg PO BID #60 tab 07/05/20 Apixaban [Eliquis] 5 mg PO BID #60 tab 07/05/20 Atorvastatin [Lipitor] 20 mg PO DAILY #30 tab 07/05/20 Metoprolol Tartrate [Lopressor] 50 mg PO BID #60 tab 07/05/20 Nitroglycerin Sl Tabs [Nitrostat] 0.4 mg SUBLINGUAL Q5M PRN #30 tab 07/05/20 Omeprazole [PriLOSEC] 40 mg PO AC-BRKFST #14 capsule. 07/05/20 Thiamine [Vitamin B-1] 100 mg PO BID-W/MEALS #30 tab 07/05/20 guaiFENesin-DM 100-10MG/5ML 10 ml PO Q6H PRN #250 ml 07/05/20 [Robitussin DM] Allergies Allergy/AdvReac Type Severity Reaction Status Date / Time codeine Allergy Rash/Hives Verified 07/03/20 22:40 Iodinated Contrast Media Allergy Rash/Hives Verified 07/03/20 22:40 [Iodinated Contrast- Oral and IV Dye] Penicillins Allergy Rash/Hives Verified 07/03/20 22:40 Review of Systems ROS Statement: Those systems with pertinent positive or pertinent negative responses have been documented in the HPI. ROS Other: All systems not noted in ROS Statement are negative. EKG Findings - EKG Comments: EKG Findings:: EKG is sinus tachycardia 148 [place] 142 QRS 94 QTC 533 - EKG Results: EKG: interpreted by ARTHUR (EKG shows sinus tachycardia 125) Past Medical History Past Medical History: Asthma, Cancer, COPD, Hypertension, Seizure Disorder Additional Past Medical History / Comment(s): ETOH abuse-pt drinks on occasion now, past alcohol withdrawal, pt states she had a recent cardiac cath/ANJU at [facility] and has a leaky valve and needs surgery but will need to improve her lung function before they can do surgery, bronchitis, "irregular heart beat", last seizure years ago, normocytic anemia with past transfusions/iron infusions, FARZAD- uses no device, neuropathy bilateral legs/hands, constipation. History of Any Multi-Drug Resistant Organisms: None Reported Past Surgical History: Bariatric Surgery, Cholecystectomy, Heart Catheterization, Hysterectomy Additional Past Surgical History / Comment(s): ANJU/cardiac cath recently at [facility], colonoscopy, D&C, Past Anesthesia/Blood Transfusion Reactions: No Reported Reaction Past Psychological History: Anxiety, Depression Smoking Status: Current every day smoker Past Alcohol Use History: Abuse, Daily Past Drug Use History: Marijuana - Past Family History Father Family Medical History: Cancer, Myocardial Infarction ([place]) Additional Family Medical History / Comment(s): Father had lung cancer. He has had 2 MIs-pt does not recall at what age. Father is alive. Mother Family Medical History: Diabetes Mellitus, Hypertension General Exam Limitations: no limitations General appearance: alert, in no apparent distress, anxious, in distress Head exam: Present: atraumatic, normocephalic, normal inspection Eye exam: Present: normal appearance, PERRL, EOMI. Absent: scleral icterus, conjunctival injection, periorbital swelling ENT exam: Present: normal exam, mucous membranes moist Neck exam: Present: normal inspection. Absent: tenderness, meningismus, lymphadenopathy Respiratory exam: Present: normal lung sounds bilaterally. Absent: respiratory distress, wheezes, rales, rhonchi, stridor Cardiovascular Exam: Present: tachycardia, irregular rhythm, normal heart sounds. Absent: systolic murmur, diastolic murmur, rubs, gallop, clicks GI/Abdominal exam: Present: soft, normal bowel sounds. Absent: distended, tenderness, guarding, rebound, rigid Extremities exam: Present: normal inspection, full ROM, normal capillary refill. Absent: tenderness, pedal edema, joint swelling, calf tenderness Back exam: Present: normal inspection Neurological exam: Present: alert, oriented X3, CN II-XII intact Psychiatric exam: Present: normal affect, normal mood Skin exam: Present: warm, dry, intact, normal color. Absent: rash Course Vital Signs 07/03/20 07/03/20 07/03/20 21:43 22:40 23:05 Temperature 99.1 F Pulse Rate 144 H 134 H 125 H Respiratory 18 18 18 Rate Blood Pressure 91/57 100/69 88/58 O2 Sat by Pulse 96 99 98 Oximetry 07/04/20 07/04/20 00:23 01:18 Temperature Pulse Rate 124 H 122 H Respiratory 16 Rate Blood Pressure 110/69 96/70 O2 Sat by Pulse 95 95 Oximetry - Reevaluation(s) Reevaluation #1: Medical record is reviewed Patient reevaluated in the emergency department, symptoms resolved Patient informed results questions answered Chest Pain MDM - MDM 49 female severe alcohol intoxication found to be in atrial fibrillation with RVR. Rate is improved blood pressures improved with patient be admitted for severe alcohol intoxication chest pain Critical Care Time Critical Care Time: Yes Total Critical Care Time: 31 Disposition Clinical Impression: Chest pain, Alcohol abuse, Alcohol intoxication, Atypical chest pain, Sinus tachycardia Disposition: ADMITTED IP TO THIS HOSP Condition: Fair Is patient prescribed a controlled substance at d/c from ED?: No
[2020-07-03] MEDS ORDERED: NITROGLYCERIN SL TABS 0.4 MG TAB SUBLINGUAL PRN (23:40)
[2020-07-03] MEDS ORDERED: ASPIRIN 81 MG PO STA (23:40)
[2020-07-03] MEDS ORDERED: MORPHINE SULFATE 4 MG/ML SYRINGE IV PRN (23:40)
[2020-07-03] MEDS ORDERED: LORazepam 2 MG/ML INJ IV STA (23:42)
[2020-07-03] MEDS ORDERED: LORazepam 2 MG/ML INJ IV PRN ×3 (23:42)
[2020-07-03] MEDS ORDERED: THIAMINE 100 MG/ML 2 ML VIAL IM STA (23:42)
[2020-07-03] MEDS: ONDANSETRON 4 MG/2 ML VIAL IVP PRN (23:54)
[2020-07-03] MEDS: THIAMINE 100 MG TAB PO SCH (23:54)
[2020-07-03] MEDS: SODIUM CHLORIDE 0.9% 1,000 ML IV SCH (23:55)
[2020-07-04] MEDS: MAGNESIUM SULFATE-D5W PMX 1 GM in DEXTROSE/WATER 1 100ML.BAG IVPB SCH ×2 (00:28→01:41)
[2020-07-04] MEDS: SODIUM CHLORIDE 0.9% 1,000 ML IV SCH (01:13)
[2020-07-04] MEDS ORDERED: METOPROLOL TARTRATE 50 MG TAB PO STA (05:56)
[2020-07-04] MEDS ORDERED: DEXTROSE 5% IN WATER 100 ML with AMIODARONE 150 MG IV ONE (05:56)
[2020-07-04] MEDS ORDERED: oxyCODONE-APAP 10-325MG 1 EACH TAB PO PRN (05:57)
[2020-07-04] MEDS ORDERED: ENOXAPARIN 100 MG/ML SYRINGE SQ STA (05:57)
[2020-07-04] MEDS ORDERED: POTASSIUM CHLORIDE ER 20 MEQ TAB.ER PO STA (05:58)
[2020-07-04] MEDS ORDERED: SODIUM CHLORIDE 0.9% 1,000 ML IV SCH (06:00)
[2020-07-04] MEDS: ONDANSETRON 4 MG/2 ML VIAL IVP PRN ×3 (06:05→18:20)
[2020-07-04] MEDS ORDERED: AMIODARONE 360 MG in DEXTROSE 5% IN WATER 200 ML IV ONE ×2 (06:06)
[2020-07-04 06:10] LABS: Cholesterol 206 mg/dL (<200); HDL Cholesterol 88 mg/dL (40-60); LDL Cholesterol,Calculated 101 mg/dL (0-99); Triglycerides 84 mg/dL (<150)
[2020-07-04] MEDS: THIAMINE 100 MG TAB PO SCH ×2 (06:23→18:19)
[2020-07-04] MEDS: LEVOTHYROXINE 75 MCG TAB PO SCH (06:23)
[2020-07-04] MEDS: ALBUTEROL NEBULIZED 2.5 MG/3 ML INHALATION PRN ×2 (08:07→20:45)
[2020-07-04] MEDS: BUDESONIDE 0.5 MG/2 ML NEBU INHALATION SCH ×2 (08:07→20:45)
[2020-07-04] MEDS ORDERED: MAGNESIUM SULFATE-D5W PMX 1 GM in DEXTROSE/WATER 1 100ML.BAG IVPB ONE (08:29)
[2020-07-04] MEDS ORDERED: METOPROLOL TARTRATE 25 MG TAB PO SCH (09:00)
[2020-07-04] MEDS ORDERED: ASPIRIN 325 MG TAB PO SCH (09:00)
[2020-07-04] MEDS ORDERED: ASPIRIN 81 MG PO SCH (09:00)
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
[2020-07-04] MEDS: PANTOPRAZOLE 40 MG/10 ML VIAL IVP SCH ×2 (09:30→19:30)
[2020-07-04] MEDS: FUROSEMIDE 40 MG TAB PO SCH ×2 (09:35→19:30)
[2020-07-04] MEDS: METOPROLOL TARTRATE 50 MG TAB PO SCH ×2 (09:35→19:30)
[2020-07-04] MEDS: SACUBITRIL/VALSARTAN 49 MG-51 MG TABLET PO SCH (09:35)
--- NOTE | 2020-07-04 09:51 | CONS ---
CONSULTATION HISTORY OF PRESENT ILLNESS: This is a 49-year-old lady with a known diagnosis of nonischemic cardiomyopathy, severe mitral regurgitation and also alcoholism. She came into the hospital yesterday through the emergency room. She came in mostly with what seems to be an an acute alcohol intoxication with alcohol level of over 300, complained of chest pain and palpitations. She was found to be in what was thought to be sinus tachycardia. She sees Dr. Vizcaino, has had a cardiac cath before, has a nonischemic cardiomyopathy and is being evaluated by the structural heart disease team at [facility] for mitral valve intervention. She has severe central mitral regurgitation. She has had a cardiac cath and transesophageal echo and cardiac catheterization in February 2018, which revealed no significant obstructive CAD. She has also what seems to be an alcoholic cardiomyopathy. EKG today revealed what looks like probably an atrial tachycardia or flutter with a heart rate of about 148 beats per minute. Probably this is atrial flutter with a 2 as to 1 conduction. She is lethargic but not short of breath. She admits to having had some excessive alcohol intake and the level was over 300 when she came into the hospital. PAST MEDICAL HISTORY: 1. Alcoholism. 2. Alcoholic cardiomyopathy. 3. Severe mitral regurgitation without obstructive CAD by catheterization about 2 years ago, being considered for a mitral valve intervention by the heart team at [facility]. MEDICATIONS: Medications at home which I am not sure she is compliant with include: Metoprolol succinate 25 mg daily, Entresto 4951, she is taking only 1 tab daily, Synthroid 150 mcg, Lasix 40 mg b.i.d., albuterol inhaler, lisinopril, which I am not sure if she is taking aspirin 81 mg daily. PHYSICAL EXAMINATION: On examination, blood pressure is 115/70, pulse rate is about 140. HEENT: Unremarkable. Fundus was not examined by me. NECK: Supple. There is JVD of 1 cm. No carotid bruit. There is tachycardia, S1-S2 heard with tachycardia, short systolic murmur at left lower sternal border and apex. Lungs reveal diminished air entry. Abdomen is soft. Lower extremities reveal diminished pulses. Central nervous system is grossly within normal limits. IMPRESSION: 1. Acute alcoholism. 2. Atrial flutter with a 2 as to 1 block. 3. Severe mitral regurgitation. 4. Nonischemic cardiomyopathy. 5. Acute alcoholism and also history of alcoholic cardiomyopathy. RECOMMENDATIONS: I will increase the beta leoncio and amiodarone bolus and drip and also anticoagulate her with Lovenox. Based on clinical course, I will make further recommendations. Thank you very much for the consult. KRIS / CRYSTAL: [id number] /
[2020-07-04] MEDS: guaiFENesin-DM 100-10MG/5ML 10 ML CUP PO PRN (11:29)
[2020-07-04] MEDS: AMIODARONE 450 MG in DEXTROSE 5% IN WATER 250 ML IV SCH ×2 (12:30)
[2020-07-04] MEDS: BENZOCAINE/MENTHOL LOZENG 1 EACH LOZENGE MUCOUS MEM PRN (18:16)
[2020-07-04] MEDS: ENOXAPARIN 80 MG/0.8 ML SYRINGE SQ SCH (18:39)
[2020-07-05] MEDS: BENZOCAINE/MENTHOL LOZENG 1 EACH LOZENGE MUCOUS MEM PRN (02:39)
[2020-07-05] MEDS: AMIODARONE 450 MG in DEXTROSE 5% IN WATER 250 ML IV SCH ×2 (02:40)
[2020-07-05] MEDS: guaiFENesin-DM 100-10MG/5ML 10 ML CUP PO PRN (04:39)
[2020-07-05] MEDS: LEVOTHYROXINE 75 MCG TAB PO SCH (05:56)
[2020-07-05] MEDS: ENOXAPARIN 80 MG/0.8 ML SYRINGE SQ SCH (05:56)
[2020-07-05] MEDS: THIAMINE 100 MG TAB PO SCH (05:56)
[2020-07-05] MEDS: BUDESONIDE 0.5 MG/2 ML NEBU INHALATION SCH ×2 (07:03→10:30)
[2020-07-05 07:49] LABS: Anisocytosis Slight; HCT 39.5 % (34.0-46.0); MCH 30.9 pg (25.0-35.0); MCHC 32.9 g/dL (31.0-37.0); MCV 94.1 fL (80.0-100.0); Mean Platelet Volume 8.4; Platelet Count 207 k/uL (150-450); WBC 4.9 k/uL (3.8-10.6)
[2020-07-05 08:14] LABS: Albumin 4.2 g/dL (3.5-5.0); Calcium 9.1 mg/dL (8.4-10.2); Magnesium 1.6 mg/dL (1.6-2.3); Total Bilirubin 0.8 mg/dL (0.2-1.3); Total Protein 7.5 g/dL (6.3-8.2)
[2020-07-05 08:39] VITALS: BP 106/66; RESP 18; TEMP 98.4
[2020-07-05] MEDS ORDERED: AMIODARONE 200 MG TAB PO SCH (09:00)
[2020-07-05] MEDS ORDERED: ATORVASTATIN 20 MG TAB PO SCH (09:00)
[2020-07-05] MEDS: MAGNESIUM SULFATE-D5W PMX 1 GM in DEXTROSE/WATER 1 100ML.BAG IVPB SCH ×2 (09:05→09:48)
--- NOTE | 2020-07-05 09:45 | P.DS ---
Providers Date of admission: 07/03/20 23:40 Attending physician: Zoltan Sims Consults: 07/03/20 23:40 Consult Physician Urgent Consulting Provider: Lizabeth Brewer Consult Reason/Comments: cp Do you want consulting provider notified?: Yes Primary care physician: [facility] Course: 49-year-old female came in with sharp chest pain in the retrosternal area along with nausea moderate severity presently resolved. Patient denied any fever chills patient denied any diaphoresis associated with the chest pain chest pain lasted for a few hours chest pain is nonradiating nonpleuritic . Urology evaluated the patient. Patient does have history of congestive heart failure with EF of around 35-40% patient has a history of mitral regurgitation, severe patient is supposed to undergo valve replacement patient does have history of COPD continues to smoke about 2 cigars per day patient is found to be all call intoxicated. Although patient admits to drinking only 2 beers a day patient says that she is not going her to have withdrawals although patient is already on alcohol withdrawal precautions which will be continued and will be monitored overnight. Patient denied any fever chills. Patient chest x-ray did not show any significant abnormality patient is having cough with minimal sputum production. 07/05/2020 Patient patient was started on amiodarone 200 twice a day oral patient was given a bolus of amiodarone. Patient has alcoholic cardiomyopathy patient can use to drink alcohol extensive counseling regarding this was provided. Patient was started on Eliquis patient has atrial flutter yesterday. May have episodes of atrial fibrillation as an outpatient. Patient had alcoholic gastritis for which patient was started on Prilosec for 14 days, Nicotine cessation counseling was provided as well. PHYSICAL EXAMINATION: GENERAL: The patient is alert and oriented x3, not in any acute distress. Well developed, well nourished. HEENT: Pupils are round and equally reacting to light. EOMI. No scleral icterus. No conjunctival pallor. Normocephalic, atraumatic. No pharyngeal erythema. No thyromegaly. CARDIOVASCULAR: S1 and S2 present. No rubs, or gallops. There is a grade 5/6 systolic murmur in the mitral area PULMONARY: Chest is clear to auscultation, no wheezing or crackles. ABDOMEN: Soft, nontender, nondistended, normoactive bowel sounds. No palpable organomegaly. MUSCULOSKELETAL: No joint swelling or deformity. EXTREMITIES: No cyanosis, clubbing, or pedal edema. NEUROLOGICAL: Gross neurological examination did not reveal any focal deficits. SKIN: No rashes. Assessment and Plan Plan: -Chest pain: Rule out a acute coronary syndromes cardiology evaluated, chest pain is secondary to alcoholic gastritis patient will be started on Protonix patient will be monitored overnight. -COPD without any acute exacerbation -Alcohol abuse: Doesn't have any withdrawals -Alcoholic gastritis -Congestive heart failure chronic systolic dysfunction secondary to mitral valve regurgitation patient is not in acute exacerbation patient was resumed on oral diuretic therapy and patient was resumed on Entresto -Mild hyponatremia probably mild hypovolemic hyponatremia. -Hypomagnesemia magnesium was replaced -Anion gap metabolic acidosis patient may have had lactic is doses on admission lactic acid will not be obtained as I believe this already resolved. -Alcoholic hepatitis -Continued nicotine use extensive counseling regarding this was provided -Mitral regurgitation severe: Patient will undergo valve replacement attended for and patient is scheduled to get this surgery done -Seizure disorder -Depression -Atrial fibrillation: Paroxysmal patient had an episode of atrial flutter, probably was having A. fib in as an outpatient. Patient is presently sinus rhythm was started on amiodarone increase the dose of metoprolol was started on anticoagulation will be discharged today Patient Condition at Discharge: Fair Plan - Discharge Summary Discharge Rx Participant: No New Discharge Prescriptions: New Amiodarone [Cordarone] 200 mg PO BID #60 tab Atorvastatin [Lipitor] 20 mg PO DAILY #30 tab Nitroglycerin Sl Tabs [Nitrostat] 0.4 mg SUBLINGUAL Q5M PRN #30 tab PRN Reason: Chest Pain guaiFENesin-DM 100-10MG/5ML [Robitussin DM] 10 ml PO Q6H PRN #250 ml PRN Reason: Cough Apixaban [Eliquis] 5 mg PO BID #60 tab Metoprolol Tartrate [Lopressor] 50 mg PO BID #60 tab Thiamine [Vitamin B-1] 100 mg PO BID-W/MEALS #30 tab Continue Potassium Chloride [Klor-Con 10] 10 meq PO BID Albuterol Sulfate [Proair Hfa] 2 puff INHALATION RT-QID PRN PRN Reason: Shortness Of Breath Vitamin B Complex 1 cap PO DAILY Budesonide [Pulmicort] 0.5 mg INHALATION RT-BID oxyCODONE-APAP 10-325MG [Percocet 10-325 mg] 1 tab PO Q8HR PRN PRN Reason: Pain Sacubitril/Valsartan [Entresto 49 mg-51 mg Tablet] 1 tab PO DAILY Levothyroxine Sodium [Synthroid] 150 mcg PO DAILY Furosemide [Lasix] 40 mg PO BID Discontinued lisinopriL 10 mg PO DAILY Aspirin EC [Ecotrin Low Dose] 81 mg PO DAILY Metoprolol Succinate (ER) [Toprol Xl] 25 mg PO DAILY Discharge Medication List Albuterol Sulfate [Proair Hfa] 2 puff INHALATION RT-QID PRN 08/15/18 [History] Potassium Chloride [Klor-Con 10] 10 meq PO BID 08/15/18 [History] Budesonide [Pulmicort] 0.5 mg INHALATION RT-BID 07/03/20 [History] Furosemide [Lasix] 40 mg PO BID 07/03/20 [History] Levothyroxine Sodium [Synthroid] 150 mcg PO DAILY 07/03/20 [History] Sacubitril/Valsartan [Entresto 49 mg-51 mg Tablet] 1 tab PO DAILY 07/03/20 [History] Vitamin B Complex 1 cap PO DAILY 07/03/20 [History] oxyCODONE-APAP 10-325MG [Percocet 10-325 mg] 1 tab PO Q8HR PRN 07/03/20 [History] Amiodarone [Cordarone] 200 mg PO BID #60 tab 07/05/20 [Rx] Apixaban [Eliquis] 5 mg PO BID #60 tab 07/05/20 [Rx] Atorvastatin [Lipitor] 20 mg PO DAILY #30 tab 07/05/20 [Rx] Metoprolol Tartrate [Lopressor] 50 mg PO BID #60 tab 07/05/20 [Rx] Nitroglycerin Sl Tabs [Nitrostat] 0.4 mg SUBLINGUAL Q5M PRN #30 tab 07/05/20 [Rx] Thiamine [Vitamin B-1] 100 mg PO BID-W/MEALS #30 tab 07/05/20 [Rx] guaiFENesin-DM 100-10MG/5ML [Robitussin DM] 10 ml PO Q6H PRN #250 ml 07/05/20 [Rx] Follow up Appointment(s)/Referral(s): Lorrie Moore MD [Primary Care Provider] - 3 Days Discharge Disposition: HOME SELF-CARE
[2020-07-05] MEDS: METOPROLOL TARTRATE 50 MG TAB PO SCH (09:52)
[2020-07-05] MEDS: FUROSEMIDE 40 MG TAB PO SCH (09:52)
[2020-07-05] MEDS: SACUBITRIL/VALSARTAN 49 MG-51 MG TABLET PO SCH (09:52)
[2020-07-05] MEDS: PANTOPRAZOLE 40 MG/10 ML VIAL IVP SCH (09:55)
[2020-07-05] MEDS: ALBUTEROL NEBULIZED 2.5 MG/3 ML INHALATION PRN (10:30)
[2020-07-05 10:51] VITALS: PULSE 82
--- NOTE | 2020-07-05 13:06 | PN ---
PROGRESS NOTE Mrs. Hurst was in atrial fib yesterday. I initiated her on amiodarone bolus and drip. I will place her on oral amiodarone. I will also start her on Eliquis 5 mg b.i.d. She is in sinus rhythm, feeling well. She has alcoholism, she has nonischemic cardiomyopathy, severe mitral regurgitation, being considered for mitral valve repair or clip and this is being discussed at [facility]. I will initiate her on 0.9 saline KVO, Lipitor 20 mg daily amiodarone will be 200 mg b.i.d., Eliquis 5 mg b.i.d. and we will discontinue aspirin. Patient wishes to go home. She can go home, but I have advised her to see Dr. Vizcaino and follow with [facility] as scheduled. She will see Dr. Vizcaino in 2 weeks. MMODL / IJN: [id number] /
[2020-07-05] MEDS ORDERED: APIXABAN 5 MG TAB PO SCH (21:00)
== END 2020-07-05 12:01 | disposition home or self-care (01) | DRG 392 ==
LOC: EC 21:34 → 3SCARD 23:40 → UNDOADMIN 07-04 → 3SCARD 07-04
PROVIDERS: ADMIT Hospitalist; ATTEND Hospitalist
DX: K29.20 Alcoholic gastritis without bleeding (principal); E87.1 Hypo-osmolality and hyponatremia; E87.2 Acidosis; I42.6 Alcoholic cardiomyopathy; I42.8 Other cardiomyopathies; I47.1 Supraventricular tachycardia; I48.92 Unspecified atrial flutter; I50.22 Chronic systolic (congestive) heart failure; E83.42 Hypomagnesemia; E86.1 Hypovolemia; Z20.822 Contact with and (suspected) exposure to COVID-19; F10.229 Alcohol dependence with intoxication, unspecified; Y90.8 Blood alcohol level of 240 mg/100 ml or more; F17.210 Nicotine dependence, cigarettes, uncomplicated; Z71.41 Alcohol abuse counseling and surveillance of alcoholic; Z71.6 Tobacco abuse counseling; F32.9 Major depressive disorder, single episode, unspecified; F41.9 Anxiety disorder, unspecified; G40.909 Epilepsy, unspecified, not intractable, without status epilepticus; K70.10 Alcoholic hepatitis without ascites; I44.1 Atrioventricular block, second degree; I11.0 Hypertensive heart disease with heart failure; I34.0 Nonrheumatic mitral (valve) insufficiency; I48.0 Paroxysmal atrial fibrillation; J44.9 Chronic obstructive pulmonary disease, unspecified; Y04.0XXA Assault by unarmed brawl or fight, initial encounter; Z79.01 Long term (current) use of anticoagulants; Z79.82 Long term (current) use of aspirin; Z79.890 Hormone replacement therapy; Z79.899 Other long term (current) drug therapy; Z80.1 Family history of malignant neoplasm of trachea, bronchus and lung; Z82.49 Family history of ischemic heart disease and other diseases of the circulatory system; Z83.3 Family history of diabetes mellitus; Z90.710 Acquired absence of both cervix and uterus; Z98.84 Bariatric surgery status; Z79.51 Long term (current) use of inhaled steroids
CPT/HCPCS: 36415; 71046; 80053; 80061; 80320; 83615; 83690; 83735; 83880; 84100; 84484; 85025; 85027; 85379; 85610; 85730; 86140; 87635; 93005; 94640; 94760; 96361; 96374; 96375; 99285

== ENCOUNTER 2020-08-06 03:14 | Inpatient (IN) | payer MEDICARE, OTHER ==
[2020-08-06] MEDS ORDERED: SODIUM CHLORIDE 0.9% 1,000 ML IV STA ×3 (03:24→03:26)
--- NOTE | 2020-08-06 03:27 | ED ---
Chest Pain HPI - General Chief Complaint: Chest Pain Stated Complaint: Chest Pain Time Seen by Provider: 08/06/20 03:24 Source: EMS, RN notes reviewed, old records reviewed Mode of arrival: EMS Limitations: no limitations - History of Present Illness Initial Comments: This is a 49-year-old female presenting is a poor strain all she can tosses that she complains of chest pain currently. Patient does appear to be significantly intoxicated, history of similar presentation MD Complaint: chest pain, other (Alcohol intoxication and tachycardia) -: hour(s) Onset: during rest Pain Location: substernal, left chest Pain Radiation: LUE Severity: moderate Severity scale (1-10): 6 Quality: aching, heaviness Consistency: constant Improves With: nothing Worsens With: nothing Context: new medications Anginal Symptoms: diaphoresis, dyspnea Other Symptoms: palpitations Treatments Prior to Arrival: none - Related Data Home Medications Medication Instructions Recorded Confirmed Albuterol Sulfate [Proair Hfa] 2 puff INHALATION RT-QID PRN 08/15/18 08/06/20 Potassium Chloride [Klor-Con 10] 10 meq PO DAILY 08/15/18 08/06/20 Budesonide [Pulmicort] 0.5 mg INHALATION RT-BID PRN 07/03/20 08/06/20 Furosemide [Lasix] 40 mg PO BID 07/03/20 08/06/20 oxyCODONE-APAP 10-325MG [Percocet 1 tab PO Q8HR PRN 07/03/20 08/06/20 10-325 mg] Beclomethasone Dip 80 Mcg/Puff 2 puff INHALATION RT-BID 08/06/20 08/06/20 [Qvar 80 mcg] Biotin 5 mg PO DAILY 08/06/20 08/06/20 Ondansetron [Zofran] 4 mg PO Q8HR PRN 08/06/20 08/06/20 Spironolactone 12.5 mg PO DAILY 08/06/20 08/06/20 Thiamine [Vitamin B-1] 100 mg PO DAILY 08/06/20 08/06/20 lisinopriL [Zestril] 5 mg PO DAILY 08/06/20 08/06/20 Previous Rx's Medication Instructions Recorded Amiodarone [Cordarone] 200 mg PO BID #60 tab 07/05/20 Atorvastatin [Lipitor] 20 mg PO DAILY #30 tab 07/05/20 Nitroglycerin Sl Tabs [Nitrostat] 0.4 mg SUBLINGUAL Q5M PRN #30 tab 07/05/20 Metoprolol Succinate (ER) [Toprol 100 mg PO DAILY #30 tab.er.24h 08/08/20 XL] Allergies Allergy/AdvReac Type Severity Reaction Status Date / Time codeine Allergy Rash/Hives Verified 08/06/20 08:04 Iodinated Contrast Media Allergy Rash/Hives Verified 08/06/20 08:04 [Iodinated Contrast- Oral and IV Dye] Penicillins Allergy Rash/Hives Verified 08/06/20 08:04 Review of Systems ROS Statement: Those systems with pertinent positive or pertinent negative responses have been documented in the HPI. ROS Other: All systems not noted in ROS Statement are negative. EKG Findings - EKG Comments: EKG Findings:: EKG is SVT 132 QRS 96 QTc 574 Past Medical History Past Medical History: Asthma, Cancer, Heart Failure, COPD, Hypertension, Seizure Disorder Additional Past Medical History / Comment(s): ETOH abuse-pt drinks on occasion now, past alcohol withdrawal, pt states she had a recent cardiac cath/ANJU at [facility] and has a leaky valve and needs surgery but will need to improve her lung function before they can do surgery, bronchitis, "irregular heart beat", last seizure years ago, normocytic anemia with past transfusions/iron infusions, FARZAD- uses no device, neuropathy bilateral legs/hands, constipation. History of Any Multi-Drug Resistant Organisms: None Reported Past Surgical History: Bariatric Surgery, Cholecystectomy, Heart Catheterization, Hysterectomy Additional Past Surgical History / Comment(s): ANJU/cardiac cath recently at [facility], colonoscopy, D&C, Past Anesthesia/Blood Transfusion Reactions: No Reported Reaction Past Psychological History: Anxiety, Depression Smoking Status: Current every day smoker Past Alcohol Use History: Abuse, Daily Past Drug Use History: Marijuana - Past Family History Father Family Medical History: Cancer, Myocardial Infarction ([place]) Additional Family Medical History / Comment(s): Father had lung cancer. He has had 2 MIs-pt does not recall at what age. Father is alive. Mother Family Medical History: Diabetes Mellitus, Hypertension General Exam Limitations: no limitations General appearance: alert, appears intoxicated, anxious Head exam: Present: atraumatic, normocephalic, normal inspection Eye exam: Present: normal appearance, PERRL, EOMI. Absent: scleral icterus, conjunctival injection, periorbital swelling ENT exam: Present: normal exam, mucous membranes moist Neck exam: Present: normal inspection. Absent: tenderness, meningismus, lymphadenopathy Respiratory exam: Present: normal lung sounds bilaterally. Absent: respiratory distress, wheezes, rales, rhonchi, stridor Cardiovascular Exam: Present: normal rhythm, tachycardia, normal heart sounds. Absent: systolic murmur, diastolic murmur, rubs, gallop, clicks GI/Abdominal exam: Present: soft, normal bowel sounds. Absent: distended, tenderness, guarding, rebound, rigid Extremities exam: Present: normal inspection, full ROM, normal capillary refill. Absent: tenderness, pedal edema, joint swelling, calf tenderness Back exam: Present: normal inspection Neurological exam: Present: alert, oriented X3, CN II-XII intact Psychiatric exam: Present: normal affect, normal mood Skin exam: Present: warm, dry, intact, normal color. Absent: rash Course Vital Signs 08/06/20 08/06/20 08/06/20 03:20 04:34 05:58 Temperature 98.5 F 98.4 F Pulse Rate 137 H 112 H 104 H Respiratory 20 18 20 Rate Blood Pressure 118/83 130/93 134/93 O2 Sat by Pulse 98 97 99 Oximetry 08/06/20 08/06/20 08/06/20 07:40 08:50 09:00 Temperature 97.6 F 97.8 F Pulse Rate 130 H 121 H Respiratory 20 20 Rate Blood Pressure 139/96 143/102 O2 Sat by Pulse 99 99 Oximetry 08/06/20 08/06/20 08/06/20 09:40 11:55 13:07 Temperature Pulse Rate 101 H 99 106 H Respiratory 20 20 20 Rate Blood Pressure 139/100 138/95 143/106 O2 Sat by Pulse 96 98 96 Oximetry 08/06/20 08/06/20 14:44 15:16 Temperature Pulse Rate 108 H 104 H Respiratory 18 18 Rate Blood Pressure 138/100 141/96 O2 Sat by Pulse 97 100 Oximetry - Reevaluation(s) Reevaluation #1: Medical record is reviewed Patient symptoms significantly improved here in the ER Patient informed results questions answered Chest Pain MDM - MDM 49 female significant dehydration alcohol intoxication and chest pain. Patient never chest pain observation complicated by severe alcohol intoxication Disposition Clinical Impression: Unstable angina pectoris, Chest pain, Alcoholic intoxication, Tachycardia Disposition: ADMITTED IP TO THIS HOSP Condition: Fair Is patient prescribed a controlled substance at d/c from ED?: No
[2020-08-06] MEDS ORDERED: HYDROmorphone 1 MG/ML 1 ML SYRINGE IVP STA (03:30)
[2020-08-06] MEDS ORDERED: LORazepam 2 MG/ML INJ IV STA (03:30)
[2020-08-06 03:50] LABS: Anisocytosis Slight; Basophils % (A) 1 %; Eosinophils % (A) 0 %; HCT 39.6 % (34.0-46.0); HGB 12.7 gm/dL (11.4-16.0); Lymphocytes # (A) 1.8 k/uL (1.0-4.8); Lymphocytes % (A) 44 %; MCH 31.5 pg (25.0-35.0); MCHC 32.1 g/dL (31.0-37.0); MCV 97.9 fL (80.0-100.0); Macrocytosis Slight; Mean Platelet Volume 8.4; Monocytes # (A) 0.2 k/uL (0-1.0); Monocytes % (A) 5 %; Neutrophils # (A) 1.9 k/uL (1.3-7.7); Neutrophils % (A) 46 %; Platelet Count 177 k/uL (150-450); RBC 4.04 m/uL (3.80-5.40); RDW 17.7 % (11.5-15.5)
[2020-08-06 04:00] LABS: INR 1.1 (<1.2); Partial Thromboplastin Time 23.3 sec (22.0-30.0); Prothrombin Time 11.2 sec (9.0-12.0)
[2020-08-06 04:27] LABS: ALT 72 U/L (4-34); African American GFR (CKD) >90 (>60 ml/min/1.73 sqM); Albumin 4.9 g/dL (3.5-5.0); Anion Gap 19 mmol/L; Blood Urea Nitrogen 13 mg/dL (7-17); Carbon Dioxide 22 mmol/L (22-30); Chloride 91 mmol/L (98-107); Creatine Kinase 245 U/L (30-135); Glucose 86 mg/dL (74-99); Lipase 54 U/L (23-300); Non-African American GFR(CKD) >90 (>60 ml/min/1.73 sqM); Sodium 132 mmol/L (137-145); Total Bilirubin 1.3 mg/dL (0.2-1.3); Total Protein 8.3 g/dL (6.3-8.2)
[2020-08-06 04:29] LABS: Alcohol 233 mg/dL; Magnesium 1.7 mg/dL (1.6-2.3); Potassium 4.2 mmol/L (3.5-5.1)
[2020-08-06 04:30] LABS: AST 380 U/L (14-36); Alkaline Phosphatase 187 U/L (38-126)
--- NOTE | 2020-08-06 04:53 | XR ---
EXAM: XR Chest, 2 Views CLINICAL HISTORY: ITS.REASON XR Reason: Chest Pain TECHNIQUE: Frontal and lateral views of the chest. COMPARISON: July 03, 2020 FINDINGS: Lungs: Unremarkable. No consolidation. Pleural space: Unremarkable. No pneumothorax. Heart: The cardiac silhouette is upper normal in size. Mediastinum: There is a calcified left hilar lymph node, unchanged. Bones/joints: Unremarkable. IMPRESSION: Borderline cardiomegaly. No evidence of CHF or acute infiltrate.
[2020-08-06] MEDS ORDERED: ASPIRIN 81 MG PO STA (05:13)
[2020-08-06] MEDS ORDERED: LORazepam 2 MG/ML INJ IV PRN (05:13)
[2020-08-06] MEDS ORDERED: THIAMINE 100 MG/ML 2 ML VIAL IM STA (05:13)
[2020-08-06] MEDS ORDERED: NITROGLYCERIN SL TABS 0.4 MG TAB SUBLINGUAL PRN (05:13)
[2020-08-06] MEDS: SODIUM CHLORIDE 0.9% 1,000 ML IV SCH ×2 (05:57→16:16)
[2020-08-06] MEDS: LORazepam 2 MG/ML INJ IV PRN ×4 (08:50→18:20)
--- NOTE | 2020-08-06 08:55 | P.CRDCN ---
History of Present Illness Consult date: 08/06/20 Chief complaint: Shortness of breath History of present illness: This is another admission for this 49-year-old female patient with known history of noncompliance with medications and also known history of nonischemic cardiomyopathy and mitral regurgitation as well as smoking. We are asked to see the patient in the emergency department for further evaluation of shortness of breath as well as heart racing and fluttering. Unfortunately her alcohol level is elevated. She was drinking. Yesterday and apparently she drinks more than 2-3 beers within short period of time. Subsequently she started experiencing symptoms of heart racing and fluttering associated with shortness of breath and then chest discomfort. She decided to come to the emergency department where she was found to be in narrow complex tachycardia seems to be concerning for AVRT tachycardia. Her heart rate slowing down slightly. I am in process of giving the patient 6 mg of adenosine trying to convert her to normal sinus mechanism. Currently she is feeling slightly better with a slowing of her heart rate down. She has no chest pain or chest discomfort. On examination she does have mild bilateral expiratory wheezing. No lower extremities edema. Her NT proBNP came in to be within normal limits and the chest x-ray did not show any acute abnormalities. She is known to have severe cardiomyopathy related to mitral regurgitation. She is known to have organic mitral regurgitation but she waited unrepaired eval for long time until she developed cardiomyopathy was EF around 35-40% based on echocardiogram from 2019. She is on maximize medical treatment at this point. I'm going to DC metoprolol tartrate and start the patient on metoprolol succinate. She is on alcohol withdrawal protocol at this point. Past Medical History Past Medical History: Asthma, Cancer, Heart Failure, COPD, Hypertension, Seizure Disorder Additional Past Medical History / Comment(s): ETOH abuse-pt drinks on occasion now, past alcohol withdrawal, pt states she had a recent cardiac cath/ANJU at [facility] and has a leaky valve and needs surgery but will need to improve her lung function before they can do surgery, bronchitis, "irregular heart beat", last seizure years ago, normocytic anemia with past transfusions/iron infusions, FARZAD- uses no device, neuropathy bilateral legs/hands, constipation. History of Any Multi-Drug Resistant Organisms: None Reported Past Surgical History: Bariatric Surgery, Cholecystectomy, Heart Catheterization, Hysterectomy Additional Past Surgical History / Comment(s): ANJU/cardiac cath recently at [facility], colonoscopy, D&C, Past Anesthesia/Blood Transfusion Reactions: No Reported Reaction Past Psychological History: Anxiety, Depression Smoking Status: Current every day smoker Past Alcohol Use History: Abuse, Daily Past Drug Use History: Marijuana - Past Family History Father Family Medical History: Cancer, Myocardial Infarction ([place]) Additional Family Medical History / Comment(s): Father had lung cancer. He has had 2 MIs-pt does not recall at what age. Father is alive. Mother Family Medical History: Diabetes Mellitus, Hypertension Medications and Allergies Home Medications Medication Instructions Recorded Confirmed Type Albuterol Sulfate [Proair Hfa] 2 puff INHALATION RT-QID PRN 08/15/18 08/06/20 History Potassium Chloride [Klor-Con 10] 10 meq PO DAILY 08/15/18 08/06/20 History Budesonide [Pulmicort] 0.5 mg INHALATION RT-BID PRN 07/03/20 08/06/20 History Furosemide [Lasix] 40 mg PO BID 07/03/20 08/06/20 History oxyCODONE-APAP 10-325MG [Percocet 1 tab PO Q8HR PRN 07/03/20 08/06/20 History 10-325 mg] Amiodarone [Cordarone] 200 mg PO BID #60 tab 07/05/20 08/06/20 Rx Atorvastatin [Lipitor] 20 mg PO DAILY #30 tab 07/05/20 08/06/20 Rx Metoprolol Tartrate [Lopressor] 50 mg PO BID #60 tab 07/05/20 08/06/20 Rx Nitroglycerin Sl Tabs [Nitrostat] 0.4 mg SUBLINGUAL Q5M PRN #30 tab 07/05/20 08/06/20 Rx Beclomethasone Dip 80 Mcg/Puff 2 puff INHALATION RT-BID 08/06/20 08/06/20 History [Qvar 80 mcg] Biotin 5 mg PO DAILY 08/06/20 08/06/20 History Ondansetron [Zofran] 4 mg PO Q8HR PRN 08/06/20 08/06/20 History Spironolactone 12.5 mg PO DAILY 08/06/20 08/06/20 History Thiamine [Vitamin B-1] 100 mg PO DAILY 08/06/20 08/06/20 History lisinopriL [Zestril] 5 mg PO DAILY 08/06/20 08/06/20 History Allergies Allergy/AdvReac Type Severity Reaction Status Date / Time codeine Allergy Rash/Hives Verified 08/06/20 08:04 Iodinated Contrast Media Allergy Rash/Hives Verified 08/06/20 08:04 [Iodinated Contrast- Oral and IV Dye] Penicillins Allergy Rash/Hives Verified 08/06/20 08:04 Physical Exam Vitals: Vital Signs Temp Pulse Resp BP Pulse Ox 08/06/20 07:40 130 H 20 139/96 99 08/06/20 05:58 98.4 F 104 H 20 134/93 99 08/06/20 04:34 112 H 18 130/93 97 08/06/20 03:20 98.5 F 137 H 20 118/83 98 Intake and Output 08/05/20 08/06/20 08/06/20 22:59 06:59 14:59 Other: Weight 81.647 kg - Constitutional General appearance: no acute distress - Respiratory Respiratory: bilateral: wheezing - Cardiovascular Rhythm: regular Heart sounds: normal: S1, S2 Abnormal Heart Sounds: systolic murmur Results 08/06/20 03:29 08/06/20 03:29 Cardiac Enzymes 08/06/20 08/06/20 08/06/20 Range/Units 03:29 03:29 06:47 AST 380 H (14-36) U/L Troponin I 0.016 <0.012 (0.000-0.034) ng/mL Coagulation 08/06/20 Range/Units 03:29 PT 11.2 (9.0-12.0) sec APTT 23.3 (22.0-30.0) sec CBC 08/06/20 Range/Units 03:29 WBC 4.0 (3.8-10.6) k/uL RBC 4.04 (3.80-5.40) m/uL Hgb 12.7 (11.4-16.0) gm/dL Hct 39.6 (34.0-46.0) % Plt Count 177 (150-450) k/uL Comprehensive Metabolic Panel 08/06/20 Range/Units 03:29 Sodium 132 L (137-145) mmol/L Potassium 4.2 (3.5-5.1) mmol/L Chloride 91 L (98-107) mmol/L Carbon Dioxide 22 (22-30) mmol/L BUN 13 (7-17) mg/dL Creatinine 0.64 (0.52-1.04) mg/dL Glucose 86 (74-99) mg/dL Calcium 9.0 (8.4-10.2) mg/dL AST 380 H (14-36) U/L ALT 72 H (4-34) U/L Alkaline Phosphatase 187 H (38-126) U/L Total Protein 8.3 H (6.3-8.2) g/dL Albumin 4.9 (3.5-5.0) g/dL Current Medications Generic Name Dose Route Start Last Admin Trade Name Freq PRN Reason Stop Dose Admin Aspirin 325 mg 08/07/20 09:00 Aspirin 325 Mg Tab PO DAILY HONORIO Sodium Chloride 1,000 mls @ 100 mls/hr 08/06/20 03:24 08/06/20 03:35 Saline 0.9% IV 08/06/20 13:23 100 mls/hr .Q10H STA Administration Sodium Chloride 1,000 mls @ 100 mls/hr 08/06/20 05:15 08/06/20 05:57 Saline 0.9% IV 100 mls/hr .Q10H HONORIO Administration Lorazepam 1 mg 08/06/20 05:13 08/06/20 08:50 Lorazepam 2 Mg/Ml Inj IV 1 mg Q2HR PRN Administration CIWA 8 or 9 Lorazepam 1 mg 08/06/20 05:13 Lorazepam 2 Mg/Ml Inj IV Q1HR PRN CIWA 10 to 15 Lorazepam 2 mg 08/06/20 05:13 Lorazepam 2 Mg/Ml Inj IV 08/08/20 05:13 Q10M PRN CIWA 16 or higher Metoprolol Tartrate 25 mg 08/06/20 09:00 Metoprolol Tartrate 25 Mg Tab PO BID HONORIO Morphine Sulfate 4 mg 08/06/20 05:13 Morphine Sulfate 4 Mg/Ml Syringe IV Q4HR PRN Chest Pain Nitroglycerin 0.4 mg 08/06/20 05:13 Nitroglycerin Sl Tabs 0.4 Mg Tab SUBLINGUAL Q5M PRN Chest Pain Thiamine HCl 100 mg 08/06/20 17:30 Thiamine 100 Mg Tab PO BID-W/MEALS HONORIO Intake and Output 08/05/20 08/06/20 08/06/20 22:59 06:59 14:59 Other: Weight 81.647 kg 08/06/20 03:29 08/06/20 03:29 Assessment and Plan Assessment: Assessment #1 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
[2020-08-06] MEDS: MORPHINE SULFATE 4 MG/ML SYRINGE IV PRN ×2 (08:57→14:40)
[2020-08-06] MEDS ORDERED: METOPROLOL TARTRATE 25 MG TAB PO SCH (09:00)
[2020-08-06] MEDS ORDERED: METOPROLOL SUCCINATE (ER) 100 MG TAB.ER.24H PO SCH (09:00)
[2020-08-06] MEDS: METOPROLOL SUCCINATE (ER) 100 MG TAB.ER.24H PO SCH (12:00)
[2020-08-06] MEDS: THIAMINE 100 MG TAB PO SCH (16:55)
[2020-08-06] MEDS ORDERED: ALBUTEROL NEBULIZED 2.5 MG/3 ML INHALATION PRN (19:04)
[2020-08-06] MEDS ORDERED: BUDESONIDE 0.5 MG/2 ML NEBU INHALATION PRN (19:04)
--- NOTE | 2020-08-06 19:15 | P.HPIM ---
History of Present Illness H&P Date: 08/06/20 Chief Complaint: Heart racing up fast. Patient is a 49-year-old female with a known history of systolic heart failure, cardiomyopathy likely nonischemic, mitral regurgitation and recent cardiac catheterization/ANJU at [facility], hypertension, COPD, alcohol abuse, marijuana use and anxiety/depression presents to ER with complaints of chest pain and shortness of breath as well as heart racing of the past. Patient states that she does have a lot of chest pains but around midnight last night patient did have prolonged mid sternum chest pain associated with heart racing or fast and shortness of breath.. Patient has been drinking more than her usual, 2-3 beers within a short period of time. Patient decided to come to ER. In the ER she was noted to have narrow complex tachycardia and was given adenosine with improvement in heart rate. Patient is noncompliant with her medications. Chest x-ray showed borderline cardiomegaly. No evidence of CHF or acute infiltrates. EKG showed supraocular tachycardia. Laboratory data showed WBC 4.0 hemoglobin 7.7 platelets 177 sodium 132 potassium 4.2 chloride 91 BUN 13 and creatinine 0.64 AST 380 ALT 72 alk phos 187 and CK level 245 Troponin x3 - Serum alcohol level is 233 and TSH level is 2.24 with a normal limits. Coronavirus PCR not detected. Review of Systems Constitutional: Patient denies any fever or chills . No generalized weakness or weight loss. Abdomen: Patient denied nausea vomiting and diarrhea and abdominal pain. Cardiovascular: Patient does have intermittent chest pains and shortness of breath. Palpitations on admission.. Respiratory: patient denied any cough or sputum production. No shortness of breath Neurologic: Patient denied any numbness or tingling headache. Musculoskeletal: Patient denies any complaints of joint swelling or deformity. Skin: Negative Psychiatric: Negative Endocrine: No heat or cold intolerance. No recent weight gain. Genitourinary: No dysuria or hematuria. All other 14 point ROS negative except the above Past Medical History Past Medical History: Asthma, Cancer, Heart Failure, COPD, Hypertension, Seizure Disorder Additional Past Medical History / Comment(s): ETOH abuse-pt drinks on occasion now, past alcohol withdrawal, pt states she had a recent cardiac cath/ANJU at [facility] and has a leaky valve and needs surgery but will need to improve her lung function before they can do surgery, bronchitis, "irregular heart beat", last seizure years ago, normocytic anemia with past transfusions/iron infusions, FARZAD- uses no device, neuropathy bilateral legs/hands, constipation. History of Any Multi-Drug Resistant Organisms: None Reported Past Surgical History: Bariatric Surgery, Cholecystectomy, Heart Catheterizati on, Hysterectomy Additional Past Surgical History / Comment(s): ANJU/cardiac cath recently at [facility], colonoscopy, D&C, Past Anesthesia/Blood Transfusion Reactions: No Reported Reaction Past Psychological History: Anxiety, Depression Smoking Status: Current every day smoker Past Alcohol Use History: Abuse, Daily Past Drug Use History: Marijuana - Past Family History Father Family Medical History: Cancer, Myocardial Infarction ([place]) Additional Family Medical History / Comment(s): Father had lung cancer. He has had 2 MIs-pt does not recall at what age. Father is alive. Mother Family Medical History: Diabetes Mellitus, Hypertension Medications and Allergies Home Medications Medication Instructions Recorded Confirmed Type Albuterol Sulfate [Proair Hfa] 2 puff INHALATION RT-QID PRN 08/15/18 08/06/20 History Potassium Chloride [Klor-Con 10] 10 meq PO DAILY 08/15/18 08/06/20 History Budesonide [Pulmicort] 0.5 mg INHALATION RT-BID PRN 07/03/20 08/06/20 History Furosemide [Lasix] 40 mg PO BID 07/03/20 08/06/20 History oxyCODONE-APAP 10-325MG [Percocet 1 tab PO Q8HR PRN 07/03/20 08/06/20 History 10-325 mg] Amiodarone [Cordarone] 200 mg PO BID #60 tab 07/05/20 08/06/20 Rx Atorvastatin [Lipitor] 20 mg PO DAILY #30 tab 07/05/20 08/06/20 Rx Metoprolol Tartrate [Lopressor] 50 mg PO BID #60 tab 07/05/20 08/06/20 Rx Nitroglycerin Sl Tabs [Nitrostat] 0.4 mg SUBLINGUAL Q5M PRN #30 tab 07/05/20 08/06/20 Rx Beclomethasone Dip 80 Mcg/Puff 2 puff INHALATION RT-BID 08/06/20 08/06/20 History [Qvar 80 mcg] Biotin 5 mg PO DAILY 08/06/20 08/06/20 History Ondansetron [Zofran] 4 mg PO Q8HR PRN 08/06/20 08/06/20 History Spironolactone 12.5 mg PO DAILY 08/06/20 08/06/20 History Thiamine [Vitamin B-1] 100 mg PO DAILY 08/06/20 08/06/20 History lisinopriL [Zestril] 5 mg PO DAILY 08/06/20 08/06/20 History Allergies Allergy/AdvReac Type Severity Reaction Status Date / Time codeine Allergy Rash/Hives Verified 08/06/20 08:04 Iodinated Contrast Media Allergy Rash/Hives Verified 08/06/20 08:04 [Iodinated Contrast- Oral and IV Dye] Penicillins Allergy Rash/Hives Verified 08/06/20 08:04 Physical Exam Vitals: Vital Signs Temp Pulse Resp BP Pulse Ox 08/06/20 09:40 101 H 20 139/100 96 08/06/20 09:00 97.8 F 08/06/20 08:50 97.6 F 121 H 20 143/102 99 08/06/20 07:40 130 H 20 139/96 99 08/06/20 05:58 98.4 F 104 H 20 134/93 99 08/06/20 04:34 112 H 18 130/93 97 08/06/20 03:20 98.5 F 137 H 20 118/83 98 Intake and Output 08/05/20 08/06/20 08/06/20 22:59 06:59 14:59 Other: Weight 81.647 kg PHYSICAL EXAMINATION: Patient is lying in the bed comfortably, no acute distress, awake alert and oriented. drowsy. HEENT: Normocephalic. Neck is supple. Pupils reactive. Nostrils clear. Oral cavity is moist. Ears reveal no drainage. Neck reveals no JVD, carotid bruits, or thyromegaly. CHEST EXAMINATION: Trachea is central. Symmetrical expansion.Bibasilar diminished sounds. Mild expiratory wheeze. Nonlabored breathing.. CARDIAC: Normal S1, S2 with no gallops. systolic murmur ABDOMEN: Soft. mild distension, Bowel sounds normal. No organomegaly. No abdominal bruits. Extremities: reveal no edema. No clubbing or cyanosis Neurologically awake, alert, oriented x3 with well-coordinated movements. No focal deficits noted Skin: No rash or skin lesions. Psychiatric: Coperative. Nonsuicidal Musculoskeletal: No joint swelling or deformity. Normal range of motion. Results CBC & Chem 7: 08/06/20 03:29 08/06/20 03:29 Labs: Abnormal Lab Results - Last 24 Hours (Table) 08/06/20 08/06/20 Range/Units 03:29 03:29 RDW 17.7 H (11.5-15.5) % Sodium 132 L (137-145) mmol/L Chloride 91 L (98-107) mmol/L AST 380 H (14-36) U/L ALT 72 H (4-34) U/L Alkaline Phosphatase 187 H (38-126) U/L Creatine Kinase 245 H (30-135) U/L Total Protein 8.3 H (6.3-8.2) g/dL Serum Alcohol 233 H* mg/dL Thrombosis Risk Factor Assmnt - DVT/VTE Prophylaxis DVT/VTE Prophylaxis: Pharmacologic Prophylaxis ordered Assessment and Plan Assessment: Supraventricular tachycardia status post adenosine 6 mg IV with control of heart rate. 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 Ongoing nicotine addiction Marijuana use Anxiety/depression Hypertension COPD not in exacerbation History of seizure disorder Bilateral lower extreme peripheral neuropathy nondiabetic Operative sleep apnea not on CPAP DVT prophylaxis Heparin subcu. Plan: Patient will be continued on telemetry monitoring. Continue with metoprolol XL as per cardiology recommendations. Continue the aspirin and statins on hold due to elevated liver enzymes. Monitor liver enzymes. Patient will be started back on lisinopril. Continue with alcohol withdrawal protocol. Patient was counseled extensively for alcohol abstinence and compliance with medications and follow-up. Prognosis is guarded at this time. Cardiology is on board. Time with Patient: Greater than 30
[2020-08-06] MEDS: FLUTICASONE 110 MCG INHALER INHALATION SCH (21:39)
[2020-08-07] MEDS: HEPARIN SODIUM,PORCINE/PF 5,000 UNIT/0.5 ML SYRINGE SQ SCH ×4 (00:54→23:00)
[2020-08-07] MEDS: SODIUM CHLORIDE 0.9% 1,000 ML IV SCH ×3 (00:55→23:00)
[2020-08-07] MEDS: ASPIRIN 325 MG TAB PO SCH (08:48)
[2020-08-07] MEDS: METOPROLOL SUCCINATE (ER) 100 MG TAB.ER.24H PO SCH (08:48)
[2020-08-07] MEDS: THIAMINE 100 MG TAB PO SCH ×2 (08:48→17:11)
[2020-08-07] MEDS: lisinopriL 5 MG TAB PO SCH (08:49)
[2020-08-07] MEDS: FLUTICASONE 110 MCG INHALER INHALATION SCH ×2 (09:22→19:30)
[2020-08-07] MEDS: ACETAMINOPHEN TAB 325 MG TAB PO PRN ×2 (11:13→19:38)
[2020-08-07 11:55] LABS: Basophils # (A) 0.02 X 10*3/uL (0.00-0.10); Basophils % (A) 0.6 %; Eosinophils # (A) 0.03 X 10*3/uL (0.04-0.35); Eosinophils % (A) 0.8 %; HCT 34.7 % (37.2-46.3); HGB 11.4 g/dL (12.0-15.0); Lymphocytes # (A) 1.31 X 10*3/uL (0.90-5.00); Lymphocytes % (A) 36.7 %; MCH 32.6 pg (27.0-32.0); MCHC 32.9 g/dL (32.0-37.0); MCV 99.1 fL (80.0-97.0); Mean Platelet Volume 10.6 fL (9.5-12.2); Monocytes % (A) 8.4 %; Neutrophils # (A) 1.89 X 10*3/uL (1.80-7.70); Neutrophils % (A) 52.9 %; Platelet Count 134 X 10*3/uL (140-440); RDW 16.7 % (11.5-14.5); WBC 3.57 X 10*3/uL (4.50-10.00)
[2020-08-07] MEDS ORDERED: ONDANSETRON 4 MG/2 ML VIAL IVP PRN (12:04)
[2020-08-07] MEDS ORDERED: oxyCODONE-APAP 10-325MG 1 EACH TAB PO PRN (12:04)
[2020-08-07] MEDS ORDERED: NON FORMULARY DRUG (Biotin [Biotin] 5 MG Capsule) PO SCH (12:15)
[2020-08-07] MEDS ORDERED: THIAMINE 100 MG TAB PO SCH (12:15)
--- NOTE | 2020-08-07 13:28 | P.PN ---
Progress Note - Text Progress Note Date: 08/07/20 This is a pleasant 49-year-old [place] female patient with history of cardiomyopathy and mitral regurgitation was admitted to the hospital with alcohol intoxication and tachycardia. She is known to have severe cardiomyopathy and severe mitral regurgitation and currently she is getting a workup regarding mitral valve clip at [facility]. She was seen this morning. She is feeling overall better. The heart rate has improved. From a cardiac vascular standpoint of view, we'll continue the current medical regimen and follow-up with the patient.
[2020-08-07] MEDS: ATORVASTATIN 20 MG TAB PO SCH (14:31)
[2020-08-07] MEDS: SPIRONOLACTONE 25 MG TAB PO SCH (14:31)
[2020-08-07 15:40] LABS: Albumin 3.8 g/dL (3.80-4.90); Albumin/Globulin Ratio 1.27 (1.60-3.17); Anion Gap 13.9 mmol/L (4.00-12.00); BUN/Creat Ratio 16.67 Ratio (12.00-20.00); Calcium 8.4 mg/dL (8.7-10.3); Carbon Dioxide 24.1 mmol/L (21.6-31.8); Chol/HDL Ratio 2.45; LDL Cholesterol,Calculated 142.6 mg/dL (0.0-131.0); Potassium 3.6 mmol/L (3.5-5.5); Total Protein 6.8 g/dL (6.2-8.2); VLDL Calculation 12.4 mg/dL (5.00-40.00)
[2020-08-07] MEDS: FUROSEMIDE 40 MG TAB PO SCH (16:33)
[2020-08-07] MEDS ORDERED: BENZOCAINE/MENTHOL LOZENG 1 EACH LOZENGE MUCOUS MEM PRN (17:15)
[2020-08-07 20:45] VITALS: RESP 18
[2020-08-07] MEDS ORDERED: MAG HYDROX/AL HYDROX/SIMETH 30 ML CUP PO PRN (23:01)
[2020-08-08] MEDS: LORazepam 2 MG/ML INJ IV PRN (00:57)
--- NOTE | 2020-08-08 01:50 | P.PN ---
Subjective Progress Note Date: 08/07/20 Principal diagnosis: Supraventricular tachycardia status post adenosine 6 mg IV with control of heart rate. Severe cardiomyopathy likely nonischemic Severe mitral regurgitation Patient is a 49-year-old female with a known history of systolic heart failure, cardiomyopathy likely nonischemic, mitral regurgitation and recent cardiac catheterization/ANJU at [facility], hypertension, COPD, alcohol abuse, marijuana use and anxiety/depression presents to ER with complaints of chest pain and shortness of breath as well as heart racing of the past. Patient states that she does have a lot of chest pains but around midnight last night patient did have prolonged mid sternum chest pain associated with heart racing or fast and shortness of breath.. Patient has been drinking more than her usual, 2-3 beers within a short period of time. Patient decided to come to ER. In the ER she was noted to have narrow complex tachycardia and was given adenosine with improvement in heart rate. Patient is noncompliant with her medications. Chest x-ray showed borderline cardiomegaly. No evidence of CHF or acute infiltrates. EKG showed supraocular tachycardia. Laboratory data showed WBC 4.0 hemoglobin 7.7 platelets 177 sodium 132 potassium 4.2 chloride 91 BUN 13 and creatinine 0.64 AST 380 ALT 72 alk phos 187 and CK level 245 Troponin x3 - Serum alcohol level is 233 and TSH level is 2.24 with a normal limits. Coronavirus PCR not detected. 08/07/2020 Patient is currently sitting in the bed comfortably. Awake alert oriented x3. No complaints of chest pain or shortness of. Heart rate is controlled. Currently on Toprol-XL 100 mg daily. Patient is being continued on alcohol withdrawal protocol. Liver enzymes are trending down slowly. Cardiology recommends to continue current management and follow-up with [facility] for her mitral valve surgery. No complaints of nausea vomiting abdominal pain or diarrhea. No dysuria or hematuria. No cough or sputum production. Saturating at 97% on room air. Cardiology is on board. Current medications reviewed. Objective - Vital Signs Vital signs: Vital Signs Temp 99.3 F 08/07/20 20:00 Pulse 74 08/07/20 20:00 Resp 18 08/07/20 20:00 BP 104/66 08/07/20 20:00 Pulse Ox 97 08/07/20 20:00 Intake & Output 08/07/20 08/07/2021 06:59 18:59 06:59 Intake Total 1200 Balance 1200 Intake: Intake, IV Titration 1200 Amount Sodium Chloride 0.9% 1, 1200 000 ml @ 100 mls/hr IV . Q10H HONORIO Rx#:[id number] Other: # Voids 3 3 # Bowel Movements 1 - Exam PHYSICAL EXAMINATION: Patient is lying in the bed comfortably, no acute distress, awake alert and oriented. drowsy. HEENT: Normocephalic. Neck is supple. Pupils reactive. Nostrils clear. Oral cavity is moist. Ears reveal no drainage. Neck reveals no JVD, carotid bruits, or thyromegaly. CHEST EXAMINATION: Trachea is central. Symmetrical expansion.Bibasilar dim inished sounds. Mild expiratory wheeze. Nonlabored breathing.. CARDIAC: Normal S1, S2 with no gallops. systolic murmur ABDOMEN: Soft. mild distension, Bowel sounds normal. No organomegaly. No abdominal bruits. Extremities: reveal no edema. No clubbing or cyanosis Neurologically awake, alert, oriented x3 with well-coordinated movements. No focal deficits noted Skin: No rash or skin lesions. Psychiatric: Coperative. Nonsuicidal Musculoskeletal: No joint swelling or deformity. Normal range of motion. - Labs CBC & Chem 7: 08/07/20 07:37 08/07/20 07:37 Labs: Abnormal Lab Results - Last 24 Hours (Table) 08/07/20 08/07/20 Range/Units 07:37 07:37 WBC 3.57 L (4.50-10.00) X 10*3/uL RBC 3.50 L (4.10-5.20) X 10*6/uL Hgb 11.4 L (12.0-15.0) g/dL Hct 34.7 L (37.2-46.3) % MCV 99.1 H (80.0-97.0) fL MCH 32.6 H (27.0-32.0) pg RDW 16.7 H (11.5-14.5) % Plt Count 134 L (140-440) X 10*3/uL Eosinophils # 0.03 L (0.04-0.35) X 10*3/uL Anion Gap 13.90 H (4.00-12.00) mmol/L Calcium 8.4 L (8.7-10.3) mg/dL AST 288 H (13-35) U/L ALT 70 H (8-44) U/L Alkaline Phosphatase 220 H (41-126) U/L Albumin/Globulin Ratio 1.27 L (1.60-3.17) g/dL Cholesterol 262 H (0-200) mg/dL LDL Cholesterol, Calc 142.6 H (0.0-131.0) mg/dL HDL Cholesterol 107.0 H (40.0-60.0) mg/dL Assessment and Plan Assessment: Supraventricular tachycardia status post adenosine 6 mg IV with control of heart rate. Severe cardiomyopathy likely nonischemic Severe mitral regurgitation Alcohol abuse Acute alcohol withdrawal symptoms Transaminitis/alcoholic hepatitis Noncompliance with medications and follow-up. Ongoing nicotine addiction Marijuana use Anxiety/depression Hypertension COPD not in exacerbation History of seizure disorder Bilateral lower extreme peripheral neuropathy nondiabetic Operative sleep apnea not on CPAP DVT prophylaxis Heparin subcu. Plan: Patient will be continued on telemetry monitoring. Continue with metoprolol XL as per cardiology recommendations. Continue the aspirin and statins on hold due to elevated liver enzymes. Monitor liver enzymes. Patient was started back on lisinopril. Continue with alcohol withdrawal protocol. Patient was counseled extensively for alcohol abstinence and compliance with medications and follow-up. Prognosis is guarded at this time. Cardiology is on board. Time with Patient: Greater than 30
[2020-08-08] MEDS: FLUTICASONE 110 MCG INHALER INHALATION SCH (07:29)
[2020-08-08 07:41] VITALS: BP 131/92; PULSE 108; TEMP 98.7
[2020-08-08] MEDS ORDERED: POTASSIUM CHLORIDE ER 10 MEQ TAB.ER.PRT PO SCH (09:00)
[2020-08-08] MEDS: HEPARIN SODIUM,PORCINE/PF 5,000 UNIT/0.5 ML SYRINGE SQ SCH (09:16)
[2020-08-08] MEDS: THIAMINE 100 MG TAB PO SCH (09:19)
[2020-08-08] MEDS: FUROSEMIDE 40 MG TAB PO SCH (09:19)
[2020-08-08] MEDS: SPIRONOLACTONE 25 MG TAB PO SCH (09:19)
[2020-08-08] MEDS: lisinopriL 5 MG TAB PO SCH (09:19)
[2020-08-08] MEDS: METOPROLOL SUCCINATE (ER) 100 MG TAB.ER.24H PO SCH (09:19)
[2020-08-08] MEDS: ATORVASTATIN 20 MG TAB PO SCH (09:22)
[2020-08-08] MEDS: ASPIRIN 325 MG TAB PO SCH (09:22)
[2020-08-08] MEDS: SODIUM CHLORIDE 0.9% 1,000 ML IV SCH (09:23)
--- NOTE | 2020-08-08 10:34 | P.PN ---
Subjective Progress Note Date: 08/08/20 Principal diagnosis: Valvular heart disease/ischemic cardiomyopathy This is a 49-year-old -[place] female patient with a past medical history significant for valvular heart disease and known severe mitral regurgitation as well as cardiomyopathy as well as cardiac arrhythmia who presented to the hospital with alcohol intoxication. The patient was seen this morning. She is insisting on going home. She still slightly tachycardic and for that reason I'm going to increase the dose of Toprol-XL to 150 mg by mouth daily. She denies any symptoms of chest pain or chest discomfort or shortness of breath at this point. She is in process of seeing the cardiac transplant team as [facility] for possible mitral valve clip. Objective - Vital Signs Vital signs: Vital Signs Temp 98.7 F 08/08/20 07:41 Pulse 108 H 08/08/20 07:41 Resp 18 08/08/20 07:41 BP 131/92 08/08/20 07:41 Pulse Ox 99 08/08/20 07:41 Intake & Output 08/07/20 08/08/20 08/08/20 18:59 06:59 18:59 Intake Total 1200 Balance 1200 Intake: Intake, IV Titration 1200 Amount Sodium Chloride 0.9% 1, 1200 000 ml @ 100 mls/hr IV . Q10H HONORIO Rx#:[id number] Other: # Voids 3 1 # Bowel Movements 1 - Constitutional General appearance: Present: no acute distress - Respiratory Respiratory: bilateral: diminished - Cardiovascular Rhythm: regular Heart sounds: normal: S1, S2 Abnormal Heart Sounds: Present: systolic murmur - Labs CBC & Chem 7: 08/07/20 07:37 08/07/20 07:37 Labs: Abnormal Lab Results - Last 24 Hours (Table) 08/07/20 08/07/20 Range/Units 07:37 07:37 WBC 3.57 L (4.50-10.00) X 10*3/uL RBC 3.50 L (4.10-5.20) X 10*6/uL Hgb 11.4 L (12.0-15.0) g/dL Hct 34.7 L (37.2-46.3) % MCV 99.1 H (80.0-97.0) fL MCH 32.6 H (27.0-32.0) pg RDW 16.7 H (11.5-14.5) % Plt Count 134 L (140-440) X 10*3/uL Eosinophils # 0.03 L (0.04-0.35) X 10*3/uL Anion Gap 13.90 H (4.00-12.00) mmol/L Calcium 8.4 L (8.7-10.3) mg/dL AST 288 H (13-35) U/L ALT 70 H (8-44) U/L Alkaline Phosphatase 220 H (41-126) U/L Albumin/Globulin Ratio 1.27 L (1.60-3.17) g/dL Cholesterol 262 H (0-200) mg/dL LDL Cholesterol, Calc 142.6 H (0.0-131.0) mg/dL HDL Cholesterol 107.0 H (40.0-60.0) mg/dL Assessment and Plan Assessment: Assessment #1 tachycardia which has a slightly improved #2 severe mitral regurgitation #3 severe cardiomyopathy #4 history of smoking #5 history of excessive alcohol use #6 multiple comorbid conditions Plan #1 increase the dose of Toprol-XL to 150 mg daily #2 the patient would like to go home
--- NOTE | 2020-08-08 14:54 | P.DS ---
Providers Date of admission: 08/06/20 15:34 Attending physician: Zoltan Sims Consults: 08/06/20 05:13 Consult Physician Urgent Consulting Provider: Lizabeth Brewer Consult Reason/Comments: cp Do you want consulting provider notified?: Yes Primary care physician: [facility] Course: Supraventricular tachycardia status post adenosine 6 mg IV with control of heart rate. Severe cardiomyopathy likely nonischemic Severe mitral regurgitation Patient is a 49-year-old female with a known history of systolic heart failure, cardiomyopathy likely nonischemic, mitral regurgitation and recent cardiac catheterization/ANJU at [facility], hypertension, COPD, alcohol abuse, marijuana use and anxiety/depression presents to ER with complaints of chest pain and shortness of breath as well as heart racing of the past. Patient states that she does have a lot of chest pains but around midnight last night patient did have prolonged mid sternum chest pain associated with heart racing or fast and shortness of breath.. Patient has been drinking more than her usual, 2-3 beers within a short period of time. Patient decided to come to ER. In the ER she was noted to have narrow complex tachycardia and was given adenosine with improvement in heart rate. Patient is noncompliant with her medications. Chest x-ray showed borderline cardiomegaly. No evidence of CHF or acute infiltrates. EKG showed supraocular tachycardia. Laboratory data showed WBC 4.0 hemoglobin 7.7 platelets 177 sodium 132 potassium 4.2 chloride 91 BUN 13 and creatinine 0.64 AST 380 ALT 72 alk phos 187 and CK level 245 Troponin x3 - Serum alcohol level is 233 and TSH level is 2.24 with a normal limits. Coronavirus PCR not detected. 08/07/2020 Patient is currently sitting in the bed comfortably. Awake alert oriented x3. No complaints of chest pain or shortness of. Heart rate is controlled. Currently on Toprol-XL 100 mg daily. Patient is being continued on alcohol withdrawal protocol. Liver enzymes are trending down slowly. Cardiology recommends to continue current management and follow-up with [facility] for her mitral valve surgery. No complaints of nausea vomiting abdominal pain or diarrhea. No dysuria or hematuria. No cough or sputum production. Saturating at 97% on room air. Cardiology is on board. 08/08/2020 patient has mild sinus tachycardia patient is presently on Toprol-XL 100 mg daily cardiology evaluated the patient and cleared for discharge patient will be discharged today. Counseling to quit alcohol was provided again before discharge. PHYSICAL EXAMINATION: GENERAL: The patient is alert and oriented x3, not in any acute distress. Well developed, well nourished. HEENT: Pupils are round and equally reacting to light. EOMI. No scleral icterus. No conjunctival pallor. Normocephalic, atraumatic. No pharyngeal erythema. No thyromegaly. CARDIOVASCULAR: S1 and S2 present. No murmurs, rubs, or gallops. PULMONARY: Chest is clear to auscultation, no wheezing or crackles. ABDOMEN: Soft, nontender, nondistended, normoactive bowel sounds. No palpable organomegaly. MUSCULOSKELETAL: No joint swelling or deformity. EXTREMITIES: No cyanosis, clubbing, or pedal edema. NEUROLOGICAL: Gross neurological examination did not reveal any focal deficits. SKIN: No rashes. Assessment and Plan Assessment: Supraventricular tachycardia status post adenosine 6 mg IV with control of heart rate. Presently fairly well controlled heart rate although does have mild sinus tachycardia patient is on Toprol-XL as per cardiology. Is being discharged today. Patient doesn't have any all call withdrawals at this time Severe cardiomyopathy likely nonischemic and probably related to alcohol. Presently not in heart failure exacerbation Severe mitral regurgitation: Scheduled for mitral valve replacement Alcohol abuse Acute alcohol withdrawal symptoms Transaminitis/alcoholic hepatitis improving liver enzymes Noncompliance with medications and follow-up. Ongoing nicotine addiction Marijuana use Anxiety/depression Hypertension COPD not in exacerbation History of seizure disorder Bilateral lower extreme peripheral neuropathy nondiabetic Obstructive sleep apnea not on CPAP Patient Condition at Discharge: Fair Plan - Discharge Summary Discharge Rx Participant: No New Discharge Prescriptions: New Metoprolol Succinate (ER) [Toprol XL] 100 mg PO DAILY #30 tab.er.24h Continue Potassium Chloride [Klor-Con 10] 10 meq PO DAILY Albuterol Sulfate [Proair Hfa] 2 puff INHALATION RT-QID PRN PRN Reason: Shortness Of Breath Budesonide [Pulmicort] 0.5 mg INHALATION RT-BID PRN PRN Reason: Shortness Of Breath Amiodarone [Cordarone] 200 mg PO BID #60 tab Atorvastatin [Lipitor] 20 mg PO DAILY #30 tab Nitroglycerin Sl Tabs [Nitrostat] 0.4 mg SUBLINGUAL Q5M PRN #30 tab PRN Reason: Chest Pain Ondansetron [Zofran] 4 mg PO Q8HR PRN PRN Reason: Nausea And Vomiting Beclomethasone Dip 80 Mcg/Puff [Qvar 80 mcg] 2 puff INHALATION RT-BID Thiamine [Vitamin B-1] 100 mg PO DAILY oxyCODONE-APAP 10-325MG [Percocet 10-325 mg] 1 tab PO Q8HR PRN PRN Reason: Pain Furosemide [Lasix] 40 mg PO BID Spironolactone 12.5 mg PO DAILY lisinopriL [Zestril] 5 mg PO DAILY Biotin 5 mg PO DAILY Discontinued Metoprolol Tartrate [Lopressor] 50 mg PO BID #60 tab Discharge Medication List Albuterol Sulfate [Proair Hfa] 2 puff INHALATION RT-QID PRN 08/15/18 [History] Potassium Chloride [Klor-Con 10] 10 meq PO DAILY 08/15/18 [History] Budesonide [Pulmicort] 0.5 mg INHALATION RT-BID PRN 07/03/20 [History] Furosemide [Lasix] 40 mg PO BID 07/03/20 [History] oxyCODONE-APAP 10-325MG [Percocet 10-325 mg] 1 tab PO Q8HR PRN 07/03/20 [History] Amiodarone [Cordarone] 200 mg PO BID #60 tab 07/05/20 [Rx] Atorvastatin [Lipitor] 20 mg PO DAILY #30 tab 07/05/20 [Rx] Nitroglycerin Sl Tabs [Nitrostat] 0.4 mg SUBLINGUAL Q5M PRN #30 tab 07/05/20 [Rx] Beclomethasone Dip 80 Mcg/Puff [Qvar 80 mcg] 2 puff INHALATION RT-BID 08/06/20 [History] Biotin 5 mg PO DAILY 08/06/20 [History] Ondansetron [Zofran] 4 mg PO Q8HR PRN 08/06/20 [History] Spironolactone 12.5 mg PO DAILY 08/06/20 [History] Thiamine [Vitamin B-1] 100 mg PO DAILY 08/06/20 [History] lisinopriL [Zestril] 5 mg PO DAILY 08/06/20 [History] Metoprolol Succinate (ER) [Toprol XL] 100 mg PO DAILY #30 tab.er.24h 08/08/20 [Rx] Follow up Appointment(s)/Referral(s): Nursing,Dennis [NON-STAFF] - As Needed Lorrie Moore MD [Primary Care Provider] - 3 Days Discharge Disposition: HOME SELF-CARE
[2020-08-09] MEDS ORDERED: METOPROLOL SUCCINATE (ER) 50 MG TAB.ER.24H PO SCH (09:00)
== END 2020-08-08 11:15 | disposition home health service (06) | DRG 309 ==
LOC: EC 03:14 → 6NMEDSUR 05:13 → 4SSUR 15:30 → OBSVTOIN 15:34 → 4SSUR 16:25
PROVIDERS: ADMIT Hospitalist; ATTEND Hospitalist
DX: I47.1 Supraventricular tachycardia (principal); I50.22 Chronic systolic (congestive) heart failure; F10.239 Alcohol dependence with withdrawal, unspecified; I42.6 Alcoholic cardiomyopathy; I11.0 Hypertensive heart disease with heart failure; J44.9 Chronic obstructive pulmonary disease, unspecified; F10.229 Alcohol dependence with intoxication, unspecified; Z20.822 Contact with and (suspected) exposure to COVID-19; Y90.7 Blood alcohol level of 200-239 mg/100 ml; K70.10 Alcoholic hepatitis without ascites; I34.0 Nonrheumatic mitral (valve) insufficiency; G62.9 Polyneuropathy, unspecified; G47.33 Obstructive sleep apnea (adult) (pediatric); D64.9 Anemia, unspecified; F17.200 Nicotine dependence, unspecified, uncomplicated; Z71.6 Tobacco abuse counseling; Z91.14 Patient's other noncompliance with medication regimen; Z79.51 Long term (current) use of inhaled steroids; Z79.899 Other long term (current) drug therapy; Z86.69 Personal history of other diseases of the nervous system and sense organs; Z90.49 Acquired absence of other specified parts of digestive tract; Z98.84 Bariatric surgery status; Z90.710 Acquired absence of both cervix and uterus; Z87.19 Personal history of other diseases of the digestive system; Z87.42 Personal history of other diseases of the female genital tract; Z86.59 Personal history of other mental and behavioral disorders; Z98.890 Other specified postprocedural states; Z88.5 Allergy status to narcotic agent; Z88.0 Allergy status to penicillin; Z91.041 Radiographic dye allergy status; Z80.1 Family history of malignant neoplasm of trachea, bronchus and lung; Z82.49 Family history of ischemic heart disease and other diseases of the circulatory system; Z83.3 Family history of diabetes mellitus
CPT/HCPCS: 36415; 71046; 80053; 80061; 80320; 82550; 83690; 83735; 83880; 84443; 84484; 85025; 85610; 85730; 87635; 93005; 94640; 96361; 96374; 96375; 99285

== ENCOUNTER 2020-10-03 14:34 | Emergency (ER) | payer MEDICARE, OTHER ==
[2020-10-03 14:40] VITALS: RESP 16; TEMP 97
[2020-10-03] MEDS ORDERED: SODIUM CHLORIDE 0.9% 1,000 ML IV STA (14:40)
[2020-10-03 14:41] VITALS: PULSE 63
[2020-10-03 15:14] VITALS: BP 93/65
--- NOTE | 2020-10-03 18:11 | ED ---
CPR HPI - General Chief Complaint: Cardiac Arrest/CPR Stated Complaint: CPR Time Seen by Provider: 10/03/20 14:34 Source: family, EMS, RN notes reviewed, old records reviewed Mode of arrival: EMS Limitations: altered mental status - History of Present Illness Initial Comments: Is a 49-year-old female history of multiple medical issues including heart di sease alcoholism who was found by family to be unresponsive and they heard her fall on her bedroom. She apparently been complaining of some chest discomfort earlier after going out to get the mail. EMS was summoned and fire rescue arrived earlier and started CPR followed by ACLS protocol by paramedics. Patient was found to be in a ventricular fibrillation rhythm she was shocked a total of 6 times with 450 mg of amiodarone being given total. There was return of spontaneous circulation the patient did have a airway placed and was not responsive. She was transported to the emergency department for further evaluation and treatment. MD Complaint: collapsed during rest - Related Data Home Medications Medication Instructions Recorded Confirmed Albuterol Sulfate [Proair Hfa] 2 puff INHALATION RT-QID PRN 08/15/18 08/06/20 Potassium Chloride [Klor-Con 10] 10 meq PO DAILY 08/15/18 08/06/20 Budesonide [Pulmicort] 0.5 mg INHALATION RT-BID PRN 07/03/20 08/06/20 Furosemide [Lasix] 40 mg PO BID 07/03/20 08/06/20 oxyCODONE-APAP 10-325MG [Percocet 1 tab PO Q8HR PRN 07/03/20 08/06/20 10-325 mg] Beclomethasone Dip 80 Mcg/Puff 2 puff INHALATION RT-BID 08/06/20 08/06/20 [Qvar 80 mcg] Biotin 5 mg PO DAILY 08/06/20 08/06/20 Ondansetron [Zofran] 4 mg PO Q8HR PRN 08/06/20 08/06/20 Spironolactone 12.5 mg PO DAILY 08/06/20 08/06/20 Thiamine [Vitamin B-1] 100 mg PO DAILY 08/06/20 08/06/20 lisinopriL [Zestril] 5 mg PO DAILY 08/06/20 08/06/20 Previous Rx's Medication Instructions Recorded Amiodarone [Cordarone] 200 mg PO BID #60 tab 07/05/20 Atorvastatin [Lipitor] 20 mg PO DAILY #30 tab 07/05/20 Nitroglycerin Sl Tabs [Nitrostat] 0.4 mg SUBLINGUAL Q5M PRN #30 tab 07/05/20 Metoprolol Succinate (ER) [Toprol 100 mg PO DAILY #30 tab.er.24h 08/08/20 XL] Allergies Allergy/AdvReac Type Severity Reaction Status Date / Time codeine Allergy Rash/Hives Verified 08/06/20 08:04 Iodinated Contrast Media Allergy Rash/Hives Verified 08/06/20 08:04 [Iodinated Contrast- Oral and IV Dye] Penicillins Allergy Rash/Hives Verified 08/06/20 08:04 Review of Systems ROS Statement: Those systems with pertinent positive or pertinent negative responses have been documented in the HPI. Limitations: ROS unobtainable due to patients medical condition Past Medical History Past Medical History: Asthma, Cancer, Heart Failure, COPD, Hypertension, Seizure Disorder Additional Past Medical History / Comment(s): ETOH abuse-pt drinks on occasion now, past alcohol withdrawal, pt states she had a recent cardiac cath/ANJU at [facility] and has a leaky valve and needs surgery but will need to improve her lung function before they can do surgery, bronchitis, "irregular heart beat", last seizure years ago, normocytic anemia with past transfusions/iron infusions, FARZAD- uses no device, neuropathy bilateral legs/hands, constipation. History of Any Multi-Drug Resistant Organisms: None Reported Past Surgical History: Bariatric Surgery, Cholecystectomy, Heart Catheterization, Hysterectomy Additional Past Surgical History / Comment(s): ANJU/cardiac cath recently at [facility], colonoscopy, D&C, Past Anesthesia/Blood Transfusion Reactions: No Reported Reaction Past Psychological History: Anxiety, Depression Smoking Status: Current every day smoker Past Alcohol Use History: Abuse, Daily Past Drug Use History: Marijuana - Past Family History Father Family Medical History: Cancer, Myocardial Infarction ([place]) Additional Family Medical History / Comment(s): Father had lung cancer. He has had 2 MIs-pt does not recall at what age. Father is alive. Mother Family Medical History: Diabetes Mellitus, Hypertension General Exam - General Exam Comments Initial Comments: This is a well-developed well-nourished unresponsive female who is being in assisted with respiratory effort Limitations: altered mental status General appearance: other (Unresponsive) Head exam: Present: atraumatic, normocephalic, normal inspection Eye exam: Present: normal appearance, PERRL, EOMI. Absent: scleral icterus, conjunctival injection, periorbital swelling ENT exam: Present: normal exam, mucous membranes moist Neck exam: Present: normal inspection. Absent: tenderness, meningismus, lymphadenopathy Respiratory exam: Present: normal lung sounds bilaterally. Absent: respiratory distress, wheezes, rales, rhonchi, stridor Cardiovascular Exam: Present: regular rate, normal rhythm, normal heart sounds. Absent: systolic murmur, diastolic murmur, rubs, gallop, clicks GI/Abdominal exam: Present: soft, normal bowel sounds. Absent: distended, tenderness, guarding, rebound, rigid Extremities exam: Present: normal inspection, full ROM, normal capillary refill. Absent: tenderness, pedal edema, joint swelling, calf tenderness Back exam: Present: normal inspection Neurological exam: Present: other (Unresponsive) Psychiatric exam: Present: other (Unable to evaluate) Skin exam: Present: warm, dry, intact, normal color. Absent: rash Course Vital Signs 10/03/20 10/03/20 10/03/20 14:35 14:41 14:45 Temperature 97.0 F L Pulse Rate 67 63 Respiratory 16 16 Rate Blood Pressure 84/66 93/65 O2 Sat by Pulse 98 Oximetry - Reevaluation(s) Reevaluation #1: 10/03/20 18:04 Shortly after arrival patient was noted have a low blood pressure did again go into a V. fib rhythm which was shocked at 200 J 1 the rhythm turn into a PEA rhythm and ACLS protocol was performed. Patient was intubated by me. The airway from the original Gregorio airway. Reevaluation #2: 10/03/20 18:06 A cells protocol was continued to have a tarry evidence of pulses were return to PEA. Efforts were continued until they were deemed to be futile patient was pronounced at 1507 p.m. Reevaluation #3: 10/03/20 18:06 Case was discussed with the lpn medical assistant's office of body has been released. Reevaluation #4: 10/03/20 18:06 I did have a conversation with multiple family members or present regarding the findings and the elk on. Reevaluation #5: 10/03/20 18:10 EKG showed a right bundle-branch block pattern and review comparison with one dated 06/06/20 it did show similar configuration. Procedures - Intubation Laryngoscope: Ybarra Size: 3 ET Tube Size: 7.5 ET Tube Uncuffed: No Tube Secured Depth (cm): 23 Tube Secured Location: lips (Coughed) Tube Placement Confirmation: visualized tube passing through cords, equal breath sounds bilaterally, no breath sounds over epigastrium, confirmation by capnometry Patient Tolerated Procedure: well Intubation Complications: none Medical Decision Making - EKG Data -: EKG Interpreted by Me (EKG showed white QRS rhythm of 67 bpm QRS 136 QT since QTC 506/534 with rig) Critical Care Time Critical Care Time: Yes Total Critical Care Time: 55 Critical Care Time: Critical care time includes initial presentation with history physical labs x- rays review of old charting was available discussed with paramedics. This did not include the intubation time. He did also include discussion with family members as well as the lpn medical assistant's office. And documentation of the above. Disposition Clinical Impression: Sudden cardiac , Ventricular fibrillation, Pulseless electrical activity, Unsuccessful cardiopulmonary resuscitation Disposition: Referrals: Lorrie Moore MD [Primary Care Provider] - 1-2 days Preliminary Cause of : Ventricular fibrillation, sudden cardiac
== END 2020-10-03 17:40 | disposition expired ==
LOC: EC 14:34
DX: I46.9 Cardiac arrest, cause unspecified (principal); I49.01 Ventricular fibrillation; I11.0 Hypertensive heart disease with heart failure; I50.9 Heart failure, unspecified; J44.9 Chronic obstructive pulmonary disease, unspecified; G40.909 Epilepsy, unspecified, not intractable, without status epilepticus; F17.200 Nicotine dependence, unspecified, uncomplicated; F12.90 Cannabis use, unspecified, uncomplicated; Z79.51 Long term (current) use of inhaled steroids; Z79.899 Other long term (current) drug therapy; Z80.1 Family history of malignant neoplasm of trachea, bronchus and lung; Z82.49 Family history of ischemic heart disease and other diseases of the circulatory system; Z83.3 Family history of diabetes mellitus; Z88.0 Allergy status to penicillin; Z88.8 Allergy status to other drugs, medicaments and biological substances; Z90.49 Acquired absence of other specified parts of digestive tract
CPT/HCPCS: 31500; 93005; 99291